=== PATIENT | male | born 1970 | race Caucasian/White ===

== ENCOUNTER 2016-09-26 15:50 | Observation (INO) ==
--- NOTE | 2016-09-26 16:06 | Emergency Department Note ---
Disposition Clinical Impression: CAD (coronary artery disease), Chest pain, Tachycardia, History of hypertension , Obesity, Abnormal EKG, History of COPD, History of CHF (congestive heart failure), Marijuana abuse, Elevated blood pressure reading, Anxiety, Pulmonary nodule, Cirrhosis, Elevated d-dimer Disposition: Admitted As Inpatient Referrals: NO,PCP [Primary Care Provider] - Forms: ED Satisfaction Letter General Adult HPI - General Chief complaint: ED Chest Pain Stated complaint: chest pain Time Seen by Provider: 09/26/16 15:57 Source: patient, EMS Limitations: no limitations - History of Present Illness HPI Narrative: 46-year-old male with a history of CAD status post CABG about 2 years ago reports emergency department complaining of chest pain which is midsternal and radiates to the left not necessarily associated with exertion. He has a history of a sternal defect status post surgery and an abdominal hernia which has been chronic. The patient denies abdominal pain vomiting or diarrhea. There is no history of bloody stool no significant leg swelling, he has a chronic cough secondary to COPD but has not had bloody emesis syncope or frankly purulence sputum or fever. The patient does not think his musculoskeletal issues in the chest wall are responsible for his chest pain. He has no history of DVT PE or cancer. No history of aneurysm noted. The patient began having chest pain this morning. He was given aspirin via EMS. There is no history of confusion or seizure. No weakness or numbness of the arms or legs, no unilateral arm or leg flaccidity. No slurred speech or confusion no headache or acute back pain. No urine symptomatology. There is no history of rash or raina trauma. Pain Scale: 10 - Related Data Allergies Allergy/AdvReac Type Severity Reaction Status Date / Time Hydromorphone [From Dilaudid] Allergy Hallucinati Verified 09/26/16 16:01 ng morphine Allergy Hallucinati Verified 09/26/16 16:01 ng Penicillins Allergy Blister Verified 09/26/16 16:01 All systems ED: reviewed and negative except as stated. Past Medical History - Past Medical History Medical history: Reports: cirrhosis, CHF, COPD, hepatitis Psychiatric history: Reports: no psych history - Social History Smoking Status: Former smoker Alcohol use: Reports: heavy Drug use: Reports: marijuana Physical Exam - General Limitations: no limitations General appearance: alert, in no apparent distress - Head Head exam: atraumatic, normocephalic, normal inspection - Eye Eye exam: Present: normal appearance, PERRL, EOMI. Absent: scleral icterus, conjunctival injection, miosis, mydriasis - ENT ENT exam: normal exam, normal oropharynx, mucous membranes moist - Neck Neck exam: Present: normal inspection, full ROM, trachea midline - Chest Chest inspection: Present: normal inspection, symmetric chest wall rise. Absent : tenderness - Respiratory Respiratory exam: Present: normal lung sounds bilaterally. Absent: respiratory distress, accessory muscle use, prolonged expiratory phase - Cardiovascular Cardiovascular exam: Present: regular rate, normal rhythm, normal heart sounds - Abdominal Exam Abdominal exam: Present: soft, Non-Tender, normal bowel sounds, hernia ( Epigastric hernia reducible nontender.). Absent: tenderness, distention, guarding, rebound, rigidity, trauma, ascites, pulsatile mass - Extremities Exam Extremities exam: Present: normal inspection, full ROM, normal capillary refill. Absent: tenderness, pedal edema, joint swelling, calf tenderness - Expanded Lower Extremity Exam Lower leg exam: Absent: Homans' sign Neurovascular/Tendon exam: Present: normal capillary refill. Absent: motor deficit, sensory deficit, tendon deficit, extremity cold to touch, pallor - Back Exam Back exam: Present: normal inspection, full ROM. Absent: tenderness, CVA tenderness (R), CVA tenderness (L), vertebral tenderness - Neurological Exam Neurological exam: Present: alert, oriented X3, CN II-XII intact. Absent: motor sensory deficit - Psychiatric Psychiatric exam: Present: normal affect, normal mood - Skin Skin exam: Present: warm, dry, intact, normal color. Absent: rash, cyanosis, diaphoresis, erythema, pallor, mottled Course - Reevaluation(s) Reevaluation #1: Rechecked the patient and reviewed his test results with him, he describes significant anxiety, Ativan was ordered. Vital Signs Temperature 98 F 09/26/16 15:53 Pulse Rate 123 09/26/16 15:53 Respiratory Rate 18 09/26/16 15:53 Blood Pressure 139/126 09/26/16 15:53 O2 Sat by Pulse Oximetry 94 09/26/16 15:53 Temperature 98 F 09/26/16 15:53 Pulse Rate 101 09/26/16 18:13 Respiratory Rate 16 09/26/16 18:13 Blood Pressure 144/108 09/26/16 18:13 O2 Sat by Pulse Oximetry 94 09/26/16 18:13 Oxygen Delivery Oxygen Delivery Nasal Cannula Medical Decision Making - MDM Narrative Medical decision making narrative: The patient's blood pressure is been significantly elevated, he has a history of hypertension. The patient does display an element of anxietyThe patient is also complaining of chest pain, he has significant risk factors for ACS including age, male sex, previous CAD, hypertension, and hyperlipidemia. Based on his risk factors for acute vascular disease, I thought it would be appropriate to admit the patient to the hospital. I discussed the case with the hospitalist on-call who has accepted the patient to their care. The patient is currently stable. Aspirin, Vicodin, and Ativan were ordered and the ED. - Lab Data Result diagrams: 09/26/16 16:39 09/26/16 16:39 Lab Results 09/26/16 09/26/16 09/26/16 Range/Units 16:35 16:39 16:39 WBC (4.3-11.1) K/mcL RBC (4.19-5.50) M/mcL Hgb (12.9-16.9) g/dL Hct (37.5-50.1) % MCV (83.0-100.0) fL MCH (28.0-33.3) pg MCHC (31.6-35.5) g/dL RDW (11.5-14.5) % Plt Count (140-400) K/mcL MPV (9.4-12.4) fL Immature Gran % (0-4) % Seg Neutrophils % % Lymphocytes % % Monocytes % % Eosinophils % % Basophils % % Neutrophils # (1.6-8.9) K/mcL Lymphocytes # (0.6-4.6) K/mcL Monocytes # (0.0-1.3) K/mcL Eosinophils # (0.0-0.6) K/mcL Basophils # (0.0-0.2) K/mcL Immature Plt Fraction (1.1-6.1) % PT 14.0 H (9.4-12.1) Seconds INR 1.3 APTT 38.9 H (26.0-36.0) Seconds D-Dimer 777 H (0-500) ng/mLFEU Sodium (136-145) mEq/L Potassium (3.5-4.5) mEq/L Chloride (98-109) mEq/L Carbon Dioxide (19-29) mEq/L BUN (8-26) mg/dL Creatinine (0.72-1.25) mg/dL Est GFR ( Amer) (> 60) Est GFR (Non-Af Amer) (> 60) BUN/Creatinine Ratio (6-26) Glucose (70-99) mg/dL Calculated Osmolality (280-300) Lactic Acid (0.5-2.2) mmol/L Calcium (8.6-10.8) mg/dL Total Bilirubin 1.7 H (0.2-1.2) mg/dL Direct Bilirubin 0.7 H (0.0-0.5) mg/dL Indirect Bilirubin 1.0 (0.0-1.2) mg/dL AST 63 H (5-34) Units/L ALT 41 (0-55) Units/L Alkaline Phosphatase 116 (38-126) Units/L Ammonia (18-72) mcmol/L Troponin I (0-0.03) ng/mL C-Reactive Protein (Less than 5) mg/L B-Natriuretic Peptide (0-100) pg/mL Serum Total Protein 8.4 H (6.0-8.3) g/dL Albumin 3.5 (3.5-5.0) g/dL Globulin 4.9 H (2.4-3.5) g/dL Albumin/Globulin Ratio 0.7 L (1.1-2.2) Lipase 24 (8-78) Units/L Urine Opiates Screen Negative (Olmyag=052) ng/mL Ur Barbiturates Screen Negative (Qpaqgj=395) ng/mL Ur Phencyclidine Scrn Negative (Cutoff=25) ng/mL Ur Amphetamines Screen Negative (Pmoynf=3496) ng/mL U Benzodiazepines Scrn Negative (Fdhpua=378) ng/mL Urine Cocaine Screen Negative (Cutoff= 300) ng/mL U Marijuana (THC) Screen Positive H (Cutoff = 50) ng/mL 09/26/16 09/26/16 09/26/16 Range/Units 16:39 16:39 16:39 WBC 8.7 (4.3-11.1) K/mcL RBC 5.13 (4.19-5.50) M/mcL Hgb 16.9 (12.9-16.9) g/dL Hct 49.8 (37.5-50.1) % MCV 97.1 (83.0-100.0) fL MCH 32.9 (28.0-33.3) pg MCHC 33.9 (31.6-35.5) g/dL RDW 13.2 (11.5-14.5) % Plt Count 146 (140-400) K/mcL MPV 9.6 (9.4-12.4) fL Immature Gran % 0.2 (0-4) % Seg Neutrophils % 71.6 % Lymphocytes % 17.0 % Monocytes % 7.0 % Eosinophils % 3.3 % Basophils % 0.9 % Neutrophils # 6.2 (1.6-8.9) K/mcL Lymphocytes # 1.5 (0.6-4.6) K/mcL Monocytes # 0.6 (0.0-1.3) K/mcL Eosinophils # 0.3 (0.0-0.6) K/mcL Basophils # 0.1 (0.0-0.2) K/mcL Immature Plt Fraction 3.6 (1.1-6.1) % PT (9.4-12.1) Seconds INR APTT (26.0-36.0) Seconds D-Dimer (0-500) ng/mLFEU Sodium 139 (136-145) mEq/L Potassium 3.9 (3.5-4.5) mEq/L Chloride 106 (98-109) mEq/L Carbon Dioxide 22 (19-29) mEq/L BUN 9 (8-26) mg/dL Creatinine 0.89 (0.72-1.25) mg/dL Est GFR ( Amer) > 60 (> 60) Est GFR (Non-Af Amer) > 60 (> 60) BUN/Creatinine Ratio 10 (6-26) Glucose 117 H (70-99) mg/dL Calculated Osmolality 288 (280-300) Lactic Acid (0.5-2.2) mmol/L Calcium 9.2 (8.6-10.8) mg/dL Total Bilirubin (0.2-1.2) mg/dL Direct Bilirubin (0.0-0.5) mg/dL Indirect Bilirubin (0.0-1.2) mg/dL AST (5-34) Units/L ALT (0-55) Units/L Alkaline Phosphatase (38-126) Units/L Ammonia (18-72) mcmol/L Troponin I 0.00 (0-0.03) ng/mL C-Reactive Protein (Less than 5) mg/L B-Natriuretic Peptide (0-100) pg/mL Serum Total Protein (6.0-8.3) g/dL Albumin (3.5-5.0) g/dL Globulin (2.4-3.5) g/dL Albumin/Globulin Ratio (1.1-2.2) Lipase (8-78) Units/L Urine Opiates Screen (Qvepwp=738) ng/mL Ur Barbiturates Screen (Jbvccd=360) ng/mL Ur Phencyclidine Scrn (Cutoff=25) ng/mL Ur Amphetamines Screen (Ppixpr=0139) ng/mL U Benzodiazepines Scrn (Mgazis=274) ng/mL Urine Cocaine Screen (Cutoff= 300) ng/mL U Marijuana (THC) Screen (Cutoff = 50) ng/mL 09/26/16 09/26/16 09/26/16 Range/Units 16:39 16:39 16:39 WBC (4.3-11.1) K/mcL RBC (4.19-5.50) M/mcL Hgb (12.9-16.9) g/dL Hct (37.5-50.1) % MCV (83.0-100.0) fL MCH (28.0-33.3) pg MCHC (31.6-35.5) g/dL RDW (11.5-14.5) % Plt Count (140-400) K/mcL MPV (9.4-12.4) fL Immature Gran % (0-4) % Seg Neutrophils % % Lymphocytes % % Monocytes % % Eosinophils % % Basophils % % Neutrophils # (1.6-8.9) K/mcL Lymphocytes # (0.6-4.6) K/mcL Monocytes # (0.0-1.3) K/mcL Eosinophils # (0.0-0.6) K/mcL Basophils # (0.0-0.2) K/mcL Immature Plt Fraction (1.1-6.1) % PT (9.4-12.1) Seconds INR APTT (26.0-36.0) Seconds D-Dimer (0-500) ng/mLFEU Sodium (136-145) mEq/L Potassium (3.5-4.5) mEq/L Chloride (98-109) mEq/L Carbon Dioxide (19-29) mEq/L BUN (8-26) mg/dL Creatinine (0.72-1.25) mg/dL Est GFR ( Amer) (> 60) Est GFR (Non-Af Amer) (> 60) BUN/Creatinine Ratio (6-26) Glucose (70-99) mg/dL Calculated Osmolality (280-300) Lactic Acid (0.5-2.2) mmol/L Calcium (8.6-10.8) mg/dL Total Bilirubin (0.2-1.2) mg/dL Direct Bilirubin (0.0-0.5) mg/dL Indirect Bilirubin (0.0-1.2) mg/dL AST (5-34) Units/L ALT (0-55) Units/L Alkaline Phosphatase (38-126) Units/L Ammonia 38 (18-72) mcmol/L Troponin I (0-0.03) ng/mL C-Reactive Protein 8 H (Less than 5) mg/L B-Natriuretic Peptide 64 (0-100) pg/mL Serum Total Protein (6.0-8.3) g/dL Albumin (3.5-5.0) g/dL Globulin (2.4-3.5) g/dL Albumin/Globulin Ratio (1.1-2.2) Lipase (8-78) Units/L Urine Opiates Screen (Wotrnx=590) ng/mL Ur Barbiturates Screen (Wlehgx=481) ng/mL Ur Phencyclidine Scrn (Cutoff=25) ng/mL Ur Amphetamines Screen (Bcylwl=9298) ng/mL U Benzodiazepines Scrn (Wivkid=186) ng/mL Urine Cocaine Screen (Cutoff= 300) ng/mL U Marijuana (THC) Screen (Cutoff = 50) ng/mL 09/26/16 Range/Units 16:39 WBC (4.3-11.1) K/mcL RBC (4.19-5.50) M/mcL Hgb (12.9-16.9) g/dL Hct (37.5-50.1) % MCV (83.0-100.0) fL MCH (28.0-33.3) pg MCHC (31.6-35.5) g/dL RDW (11.5-14.5) % Plt Count (140-400) K/mcL MPV (9.4-12.4) fL Immature Gran % (0-4) % Seg Neutrophils % % Lymphocytes % % Monocytes % % Eosinophils % % Basophils % % Neutrophils # (1.6-8.9) K/mcL Lymphocytes # (0.6-4.6) K/mcL Monocytes # (0.0-1.3) K/mcL Eosinophils # (0.0-0.6) K/mcL Basophils # (0.0-0.2) K/mcL Immature Plt Fraction (1.1-6.1) % PT (9.4-12.1) Seconds INR APTT (26.0-36.0) Seconds D-Dimer (0-500) ng/mLFEU Sodium (136-145) mEq/L Potassium (3.5-4.5) mEq/L Chloride (98-109) mEq/L Carbon Dioxide (19-29) mEq/L BUN (8-26) mg/dL Creatinine (0.72-1.25) mg/dL Est GFR ( Amer) (> 60) Est GFR (Non-Af Amer) (> 60) BUN/Creatinine Ratio (6-26) Glucose (70-99) mg/dL Calculated Osmolality (280-300) Lactic Acid 1.6 (0.5-2.2) mmol/L Calcium (8.6-10.8) mg/dL Total Bilirubin (0.2-1.2) mg/dL Direct Bilirubin (0.0-0.5) mg/dL Indirect Bilirubin (0.0-1.2) mg/dL AST (5-34) Units/L ALT (0-55) Units/L Alkaline Phosphatase (38-126) Units/L Ammonia (18-72) mcmol/L Troponin I (0-0.03) ng/mL C-Reactive Protein (Less than 5) mg/L B-Natriuretic Peptide (0-100) pg/mL Serum Total Protein (6.0-8.3) g/dL Albumin (3.5-5.0) g/dL Globulin (2.4-3.5) g/dL Albumin/Globulin Ratio (1.1-2.2) Lipase (8-78) Units/L Urine Opiates Screen (Jpinrk=147) ng/mL Ur Barbiturates Screen (Nugvft=820) ng/mL Ur Phencyclidine Scrn (Cutoff=25) ng/mL Ur Amphetamines Screen (Qhjqkx=5593) ng/mL U Benzodiazepines Scrn (Qceztc=618) ng/mL Urine Cocaine Screen (Cutoff= 300) ng/mL U Marijuana (THC) Screen (Cutoff = 50) ng/mL
[2016-09-26] MEDS ORDERED: *HR* HYDROmorphone (PF) 1 MG/ML SYRINGE IVP ONE (16:29)
[2016-09-26] MEDS ORDERED: Ondansetron 4 MG/2 ML VIAL IVP ONE (16:29)
[2016-09-26] MEDS ORDERED: Aspirin 325 MG TABLET PO ONE (16:30)
[2016-09-26] MEDS ORDERED: *HR* HYDROcodone/Acet 5/325 mg TABLET PO ONE ×2 (16:38→18:19)
[2016-09-26 16:49] LABS: Basophils # 0.1 K/mcL (0.0-0.2); Basophils % 0.9 %; Eosinophils # 0.3 K/mcL (0.0-0.6); Eosinophils % 3.3 %; Hematocrit 49.8 % (37.5-50.1); Hemoglobin 16.9 g/dL (12.9-16.9); Immature Granulocytes % 0.2 % (0-4); Immature Platelets 3.6 % (1.1-6.1); Lymphocytes # 1.5 K/mcL (0.6-4.6); Mean Corpuscular HGB Conc 33.9 g/dL (31.6-35.5); Mean Corpuscular Hemoglobin 32.9 pg (28.0-33.3); Mean Corpuscular Volume 97.1 fL (83.0-100.0); Mean Platelet Volume 9.6 fL (9.4-12.4); Monocytes # 0.6 K/mcL (0.0-1.3); Neutrophils # 6.2 K/mcL (1.6-8.9); Platelet Count 146 K/mcL (140-400); Red Blood Count 5.13 M/mcL (4.19-5.50); Red Cell Distribution Width 13.2 % (11.5-14.5); Segmented Neutrophils % 71.6 %
[2016-09-26 16:51] LABS: Amphetamine Screen,Urine Negative ng/mL (Cutoff=1000); Barbiturate Screen,Urine Negative ng/mL (Cutoff=200); Benzodiazepines Screen,Urine Negative ng/mL (Cutoff=200); Cannabinoid Screen,Urine Positive ng/mL (Cutoff = 50); Cocaine Screen,Urine Negative ng/mL (Cutoff= 300); Opiate Screen,Urine Negative ng/mL (Cutoff=300); Phencyclidine Screen,Urine Negative ng/mL (Cutoff=25)
[2016-09-26 17:02] LABS: BUN/Creatinine Ratio 10 (6-26); Blood Urea Nitrogen 9 mg/dL (8-26); Calcium 9.2 mg/dL (8.6-10.8); Carbon Dioxide 22 mEq/L (19-29); Chloride 106 mEq/L (98-109); Glucose 117 mg/dL (70-99); Osmolality,Calculated 288 (280-300); Potassium 3.9 mEq/L (3.5-4.5); Sodium 139 mEq/L (136-145); eGFR For African Americans > 60 (> 60); eGFR For Non-African Americans > 60 (> 60)
[2016-09-26 17:05] LABS: Albumin 3.5 g/dL (3.5-5.0); Albumin/Globulin Ratio 0.7 (1.1-2.2); Bilirubin,Direct 0.7 mg/dL (0.0-0.5); Bilirubin,Total 1.7 mg/dL (0.2-1.2); Globulin 4.9 g/dL (2.4-3.5); Total Protein 8.4 g/dL (6.0-8.3)
[2016-09-26 17:08] LABS: INR 1.3
[2016-09-26 17:11] LABS: Activated Partial Thrombo Time 38.9 Seconds (26.0-36.0)
[2016-09-26] MEDS ORDERED: *HR* LORazepam 2 MG/ML VIAL IVP ONE (18:02)
[2016-09-26 19:11] LABS: Bilirubin,Urine Negative (Negative); Blood,Urine Negative (Negative); Clarity,Urine Clear (Clear); Color,Urine Dark Yellow (Yellow); Glucose,Urine (UA) Normal (Normal); Ketones,Urine Negative (Negative); Leukocyte Esterase,Urine Negative (Negative); Nitrite,Urine Negative (Negative); PH,Urine 6.5 pH Units (5.0-8.0); Protein,Urine Negative (Neg-Trace); Specific Gravity,Urine 1.018 (1.010-1.025); Urobilinogen,Urine Normal (Normal)
[2016-09-26] MEDS ORDERED: Naloxone 0.4 MG/ML INJ IVP PRN (19:56)
[2016-09-26] MEDS ORDERED: *HR* HYDROmorphone (PF) 1 MG/ML SYRINGE IVP PRN (19:56)
[2016-09-26] MEDS ORDERED: *HR* HYDROcodone/Acet 5/325 mg TABLET PO PRN (19:56)
[2016-09-26] MEDS ORDERED: *HR* Metoprolol 5 MG/5 ML VIAL IVP ONE (19:58)
[2016-09-26] MEDS ORDERED: 0.9 % Sodium Chloride 1,000 ML IVC ONE (19:59)
[2016-09-26] MEDS ORDERED: 0.9 % Sodium Chloride 500 ML IVC ONE (20:00)
[2016-09-26] MEDS ORDERED: Nitroglycerin 0.4 MG TAB.SUBL SL PRN (20:01)
[2016-09-26] MEDS ORDERED: *HR* Promethazine 25 MG/ML VIAL IVP PRN (20:05)
[2016-09-26] MEDS ORDERED: *HR* LORazepam 2 MG/ML VIAL IVP PRN (20:05)
--- NOTE | 2016-09-26 20:22 | Internal Med History&Physical ---
Date of Encounter: 09/26/16 Time of Encounter: 20:13 Assessment and Plan (1) Chest pain Current visit: Yes Status: Acute Patient reports constant chest pain radiating to left side since this morning, unrelieved by nitro, aspirin. Initial troponin was negative at 0.00 EKG showed sinus tachycardia with no significant changes from previous. continuous monitor and storage bin tender serial troponins stress test and echocardiogram in the morning. Qualifiers: Chest pain type: precordial pain Qualified Code(s): R07.2 - Precordial pain (2) Tachycardia Current visit: Yes Status: Acute Patient's heart rate has been running in the 110s-120s since arrival. EKG shows sinus tachycardia. Patient reports pain, and drank alcohol last night. Patient also reports a high level of stress and anxiety. Tachycardia could be related to his stress, pain, and/or dehydration. Metoprolol 5m IVP once 500mL bolus Pain control with PRN [place] and dilaudid. Ativan for anxiety. (3) Hypertension Current visit: Yes Status: Acute Patient's blood pressure running high since arrival. 140s-150s/100s. Patient reports he took his blood pressure medication today, and his BP may be high due to his pain. 5mg Metoprolol IVP once. Continue home doses of metoprolol (hold in AM for stress), lisinopril. Qualifiers: Hypertension type: essential hypertension Qualified Code(s): I10 - Essential (primary) hypertension (4) Alcohol abuse Current visit: Yes Status: Acute Patient reports heavy alcohol use, despite diagnosis of cirrhosis. He reports Isai Beam whiskey is drink of choice and it is nothing for him to drink a whole bottle at a time. He reports last drink was last evening. [facility] protocol for alcohol withdrawal. Social work consulted. (5) Chronic pain Current visit: Yes Status: Acute Patient reports chronic pain in left leg related to knee replacement, history of femur "shattering" resulting in hip replacement. 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 Continue home dose of hydrocodone-acetaminophen 7.5-325 Q4hr PRN. dilaudid 0.5mg IVP Q4hr prn for breakthrough pain Narcan PRN for respiratory depression. Qualifiers: Chronic pain type: other chronic pain Qualified Code(s): G89.29 - Other chronic pain (6) CAD (coronary artery disease) Current visit: Yes Status: Acute Patient is s/p 4-vessel coronary artery bypass in 2014. Continue aspirin, atorvastatin, metoprolol, lisinopril Qualifiers: Coronary Disease-Associated Artery/Lesion type: [place] artery [place] vs. transplanted heart: [place] heart Associated angina: angina presence unspecified Qualified Code(s): I25.10 - Atherosclerotic heart disease of [place] coronary artery without angina pectoris (7) Suicidal ideation Current visit: Yes Status: Acute Patient reports high level of stress and anxiety and reported suicidal ideation to his nurse. suicide precautions Social work consulted psych consult ordered (will need to be called in the morning) (8) DVT prophylaxis Current visit: Yes Status: Acute calf sequential compression devices. Internal Medicine - H&P: HPI Chief complaint: chest pain Admitted From: Emergency Dept Plans for Post Hospital Care: Home History of present illness: Mr. Castro is a 46 year old male with HTN, HLD, CHF, CAD s/p 4 vessel CABG 2014, cirrhosis and chronic pain presented to the emergency department today with complaints of chest pain. Patient reports he woke up this morning with chest pain at 5 AM was radiating to his left shoulder. He describes the pain as sharp and severe. He reports he took a nitroglycerin and went back to sleep, and woke up again at 9 AM and the pain was still there reports the pain has been persistent throughout the day. Pain was not relieved by nitroglycerin, aspirin, he reports he still has pain despite the pain medication being given in the emergency department. He reports occasional lightheadedness and shortness of breath, but not any increased from his baseline. He reports a little bit of nausea, but denies any vomiting, abdominal pain, or diarrhea. He reports night sweats on a regular basis, but denies any fever or chills or body aches. Evaluation in the emergency department included an EKG which showed sinus tachycardia but no ST changes from previous EKG. Troponin was negative at 0.00. D-dimer was elevated to 777, so his CTA was obtained. CTA showed no evidence of a pulmonary embolism, atherosclerotic disease of the thoracic aorta , without evidence of aneurysm or dissection, minimal dependent atelectasis within the bilateral lower lobes, cirrhosis and portal hypertension, new 3 mm right lower lobe pulmonary nodule most likely benign. On exam, patient alert and oriented, in no acute distress. Heart had regular rhythm with tachycardia. Lungs had fine crackles in the bases. Past Med Surg Social Fam HX - Past Medical History Medical history: cirrhosis, CHF, COPD, coronary artery disease, GERD, hepatitis , hyperlipidemia, hypertension, liver disease, myocardial infarction Psychiatric history: no psych history - Past Surgical History Surgical History: coronary bypass (CABG), hip replacement, knee replacement - Social History Smoking Status: Former smoker Alcohol use: heavy Drug use: marijuana - Family History Mother Living Status: Age at : 48 Cause of : cancer Hx Family Cancer: Yes Father Living Status: Age at : 62 Cause of : cancer Hx Family Cancer: Yes Brother Living Status: Age at : 37 Cause of : cancer Hx Family Cancer: Yes Internal Medicine - H&P: Meds Aspirin Enteric Coated [Aspirin EC] 81 mg PO DAILY 09/26/16 [History] Atorvastatin [Lipitor] 40 mg PO HS 09/26/16 [History] Buspirone HCl [Buspar] 15 mg PO BID 09/26/16 [History] Duloxetine HCl [Cymbalta] 60 mg PO DAILY 09/26/16 [History] Fluticasone/Salmeterol [Advair 250-50 Diskus] 1 puff IH BID 09/26/16 [History] Gabapentin [Neurontin] 600 mg PO BID 09/26/16 [History] HYDROcodone/Acet 7.5/325 mg [[place] 7.5-325 mg] 1 tab PO Q4H PRN 09/26/16 [ History] Lisinopril [Zestril] 10 mg PO DAILY 09/26/16 [History] Metoprolol XL (24 HR) Succ [Toprol XL] 50 mg PO DAILY 09/26/16 [History] Nitroglycerin [Nitrostat] 0.4 mg SL AD PRN 09/26/16 [History] Tiotropium [place] [Spiriva Respimat] 2 puff IH DAILY 09/26/16 [History] Allergies Hydromorphone [From Dilaudid] Allergy (Verified 09/26/16 16:01) Hallucinating morphine Allergy (Verified 09/26/16 16:01) Hallucinating Penicillins Allergy (Verified 09/26/16 16:01) Blister All Systems PM: A 10-system review of systems was performed and is negative for pertinent findings except as documented above in the HPI. - Constitutional Constitutional: night sweats, no chills, no fever(s) - EENT Eyes: no change in vision, no discharge, no pain, no photophobia Ears: no ear discharge, no ear pain, no tinnitus Nose, mouth and throat: no dysphagia, no nasal discharge, no neck pain, no sore throat - Cardiovascular Cardiovascular ROS IM: chest pain, dyspnea, lightheadedness, no diaphoresis, no palpitations, no syncope - Respiratory Respiratory: cough, dyspnea, no wheezing, no excessive phlegm production - Gastrointestinal Gastrointestinal: no abdominal pain, no diarrhea, no hematemesis, no hematochezia, no melena, no nausea, no vomiting - Musculoskeletal Musculoskeletal ROS IM: numbness (left foot, chronic), no tingling - Integumentary Integumentary IM: no rash, no unusual bruising - Neurological Neurological ROS: numbness (left foot, chronic), no confusion, no convulsions, no focal weakness, no tingling, no tremor(s) - Hematologic/Lymphatic Hematologic/Lymphatic: no easy bruising - Constitutional Vitals: Temp Pulse Resp BP Pulse Ox 98 F 120 18 140/110 93 09/26/16 15:53 09/26/16 18:55 09/26/16 19:25 09/26/16 19:25 09/26/16 18:55 General appearance: Present: A&O X 3, pleasant, no acute distress, obese - Head Head exam: Present: atraumatic, normocephalic - Eye Eye exam: Present: PERRL, conjuntiva pink, sclera anicteric Pupils: Present: PERRL - Neck Neck exam general surgery: Present: supple, trachea midline. Absent: lymphadenopathy - Respiratory Respiratory exam: Present: rales (crackles in bilateral bases). Absent: accessory muscle use, rhonchi, wheezes - Cardiovascular Cardiovascular exam: Present: +S1, +S2, tachycardia. Absent: diastolic murmur, gallop, rubs, systolic murmur - GI/Abdominal GI/Abdominal exam: Present: normal bowel sounds, soft, no peritoneal signs. Absent: distended, tenderness - Extremities Exam Extremities exam: Present: warm, radial pulses palpable and symetrical. Absent : calf tenderness, cyanotic, pedal edema - Neurological Exam Neurological exam: Present: CN II-XII intact, oriented X3, no focal deficits. Absent: facial droop, speech deficit - Skin Skin exam: Present: dry, intact Internal Med - H&P Results - Labs CBC & Chem 7: 09/26/16 16:39 09/26/16 16:39 Labs: All Lab Results (24 Hours) 09/26/16 09/26/16 09/26/16 Range/Units 16:35 16:35 16:39 WBC (4.3-11.1) K/mcL RBC (4.19-5.50) M/mcL Hgb (12.9-16.9) g/dL Hct (37.5-50.1) % MCV (83.0-100.0) fL MCH (28.0-33.3) pg MCHC (31.6-35.5) g/dL RDW (11.5-14.5) % Plt Count (140-400) K/mcL MPV (9.4-12.4) fL Immature Gran % (0-4) % Seg Neutrophils % % Lymphocytes % % Monocytes % % Eosinophils % % Basophils % % Neutrophils # (1.6-8.9) K/mcL Lymphocytes # (0.6-4.6) K/mcL Monocytes # (0.0-1.3) K/mcL Eosinophils # (0.0-0.6) K/mcL Basophils # (0.0-0.2) K/mcL Immature Plt Fraction (1.1-6.1) % PT 14.0 H (9.4-12.1) Seconds INR 1.3 APTT 38.9 H (26.0-36.0) Seconds D-Dimer 777 H (0-500) ng/mLFEU Sodium (136-145) mEq/L Potassium (3.5-4.5) mEq/L Chloride (98-109) mEq/L Carbon Dioxide (19-29) mEq/L BUN (8-26) mg/dL Creatinine (0.72-1.25) mg/dL Est GFR ( Amer) (> 60) Est GFR (Non-Af Amer) (> 60) BUN/Creatinine Ratio (6-26) Glucose (70-99) mg/dL Calculated Osmolality (280-300) Lactic Acid (0.5-2.2) mmol/L Calcium (8.6-10.8) mg/dL Total Bilirubin (0.2-1.2) mg/dL Direct Bilirubin (0.0-0.5) mg/dL Indirect Bilirubin (0.0-1.2) mg/dL AST (5-34) Units/L ALT (0-55) Units/L Alkaline Phosphatase (38-126) Units/L Ammonia (18-72) mcmol/L Troponin I (0-0.03) ng/mL C-Reactive Protein (Less than 5) mg/L B-Natriuretic Peptide (0-100) pg/mL Serum Total Protein (6.0-8.3) g/dL Albumin (3.5-5.0) g/dL Globulin (2.4-3.5) g/dL Albumin/Globulin Ratio (1.1-2.2) Lipase (8-78) Units/L Urine Color Dark Yellow (Yellow) Urine Clarity Clear (Clear) Urine pH 6.5 (5.0-8.0) pH Units Ur Specific [place] 1.018 (1.010-1.025) Urine Protein Negative (Neg-Trace) mg/dL Urine Glucose (UA) Normal (Normal) mg/dL Urine Ketones Negative (Negative) mg/dL Urine Blood Negative (Negative) Urine Nitrite Negative (Negative) Urine Bilirubin Negative (Negative) Urine Urobilinogen Normal (Normal) mg/dL Ur Leukocyte Esterase Negative (Negative) Ur Culture Indicated? NO (NO) Urine Opiates Screen Negative (Jmvuks=180) ng/mL Ur Barbiturates Screen Negative (Ensptb=000) ng/mL Ur Phencyclidine Scrn Negative (Cutoff=25) ng/mL Ur Amphetamines Screen Negative (Zypyzy=9578) ng/mL U Benzodiazepines Scrn Negative (Fpqjjd=665) ng/mL Urine Cocaine Screen Negative (Cutoff= 300) ng/mL U Marijuana (THC) Screen Positive H (Cutoff = 50) ng/mL 09/26/16 09/26/16 09/26/16 Range/Units 16:39 16:39 16:39 WBC 8.7 (4.3-11.1) K/mcL RBC 5.13 (4.19-5.50) M/mcL Hgb 16.9 (12.9-16.9) g/dL Hct 49.8 (37.5-50.1) % MCV 97.1 (83.0-100.0) fL MCH 32.9 (28.0-33.3) pg MCHC 33.9 (31.6-35.5) g/dL RDW 13.2 (11.5-14.5) % Plt Count 146 (140-400) K/mcL MPV 9.6 (9.4-12.4) fL Immature Gran % 0.2 (0-4) % Seg Neutrophils % 71.6 % Lymphocytes % 17.0 % Monocytes % 7.0 % Eosinophils % 3.3 % Basophils % 0.9 % Neutrophils # 6.2 (1.6-8.9) K/mcL Lymphocytes # 1.5 (0.6-4.6) K/mcL Monocytes # 0.6 (0.0-1.3) K/mcL Eosinophils # 0.3 (0.0-0.6) K/mcL Basophils # 0.1 (0.0-0.2) K/mcL Immature Plt Fraction 3.6 (1.1-6.1) % PT (9.4-12.1) Seconds INR APTT (26.0-36.0) Seconds D-Dimer (0-500) ng/mLFEU Sodium 139 (136-145) mEq/L Potassium 3.9 (3.5-4.5) mEq/L Chloride 106 (98-109) mEq/L Carbon Dioxide 22 (19-29) mEq/L BUN 9 (8-26) mg/dL Creatinine 0.89 (0.72-1.25) mg/dL Est GFR ( Amer) > 60 (> 60) Est GFR (Non-Af Amer) > 60 (> 60) BUN/Creatinine Ratio 10 (6-26) Glucose 117 H (70-99) mg/dL Calculated Osmolality 288 (280-300) Lactic Acid (0.5-2.2) mmol/L Calcium 9.2 (8.6-10.8) mg/dL Total Bilirubin 1.7 H (0.2-1.2) mg/dL Direct Bilirubin 0.7 H (0.0-0.5) mg/dL Indirect Bilirubin 1.0 (0.0-1.2) mg/dL AST 63 H (5-34) Units/L ALT 41 (0-55) Units/L Alkaline Phosphatase 116 (38-126) Units/L Ammonia (18-72) mcmol/L Troponin I (0-0.03) ng/mL C-Reactive Protein (Less than 5) mg/L B-Natriuretic Peptide (0-100) pg/mL Serum Total Protein 8.4 H (6.0-8.3) g/dL Albumin 3.5 (3.5-5.0) g/dL Globulin 4.9 H (2.4-3.5) g/dL Albumin/Globulin Ratio 0.7 L (1.1-2.2) Lipase 24 (8-78) Units/L Urine Color (Yellow) Urine Clarity (Clear) Urine pH (5.0-8.0) pH Units Ur Specific [place] (1.010-1.025) Urine Protein (Neg-Trace) mg/dL Urine Glucose (UA) (Normal) mg/dL Urine Ketones (Negative) mg/dL Urine Blood (Negative) Urine Nitrite (Negative) Urine Bilirubin (Negative) Urine Urobilinogen (Normal) mg/dL Ur Leukocyte Esterase (Negative) Ur Culture Indicated? (NO) Urine Opiates Screen (Evqbyu=657) ng/mL Ur Barbiturates Screen (Htcowo=212) ng/mL Ur Phencyclidine Scrn (Cutoff=25) ng/mL Ur Amphetamines Screen (Sulwcq=7448) ng/mL U Benzodiazepines Scrn (Ystjls=554) ng/mL Urine Cocaine Screen (Cutoff= 300) ng/mL U Marijuana (THC) Screen (Cutoff = 50) ng/mL 09/26/16 09/26/16 09/26/16 Range/Units 16:39 16:39 16:39 WBC (4.3-11.1) K/mcL RBC (4.19-5.50) M/mcL Hgb (12.9-16.9) g/dL Hct (37.5-50.1) % MCV (83.0-100.0) fL MCH (28.0-33.3) pg MCHC (31.6-35.5) g/dL RDW (11.5-14.5) % Plt Count (140-400) K/mcL MPV (9.4-12.4) fL Immature Gran % (0-4) % Seg Neutrophils % % Lymphocytes % % Monocytes % % Eosinophils % % Basophils % % Neutrophils # (1.6-8.9) K/mcL Lymphocytes # (0.6-4.6) K/mcL Monocytes # (0.0-1.3) K/mcL Eosinophils # (0.0-0.6) K/mcL Basophils # (0.0-0.2) K/mcL Immature Plt Fraction (1.1-6.1) % PT (9.4-12.1) Seconds INR APTT (26.0-36.0) Seconds D-Dimer (0-500) ng/mLFEU Sodium (136-145) mEq/L Potassium (3.5-4.5) mEq/L Chloride (98-109) mEq/L Carbon Dioxide (19-29) mEq/L BUN (8-26) mg/dL Creatinine (0.72-1.25) mg/dL Est GFR ( Amer) (> 60) Est GFR (Non-Af Amer) (> 60) BUN/Creatinine Ratio (6-26) Glucose (70-99) mg/dL Calculated Osmolality (280-300) Lactic Acid (0.5-2.2) mmol/L Calcium (8.6-10.8) mg/dL Total Bilirubin (0.2-1.2) mg/dL Direct Bilirubin (0.0-0.5) mg/dL Indirect Bilirubin (0.0-1.2) mg/dL AST (5-34) Units/L ALT (0-55) Units/L Alkaline Phosphatase (38-126) Units/L Ammonia 38 (18-72) mcmol/L Troponin I 0.00 (0-0.03) ng/mL C-Reactive Protein 8 H (Less than 5) mg/L B-Natriuretic Peptide (0-100) pg/mL Serum Total Protein (6.0-8.3) g/dL Albumin (3.5-5.0) g/dL Globulin (2.4-3.5) g/dL Albumin/Globulin Ratio (1.1-2.2) Lipase (8-78) Units/L Urine Color (Yellow) Urine Clarity (Clear) Urine pH (5.0-8.0) pH Units Ur Specific [place] (1.010-1.025) Urine Protein (Neg-Trace) mg/dL Urine Glucose (UA) (Normal) mg/dL Urine Ketones (Negative) mg/dL Urine Blood (Negative) Urine Nitrite (Negative) Urine Bilirubin (Negative) Urine Urobilinogen (Normal) mg/dL Ur Leukocyte Esterase (Negative) Ur Culture Indicated? (NO) Urine Opiates Screen (Ehlvxc=615) ng/mL Ur Barbiturates Screen (Yfskwd=258) ng/mL Ur Phencyclidine Scrn (Cutoff=25) ng/mL Ur Amphetamines Screen (Hxfxfn=3754) ng/mL U Benzodiazepines Scrn (Lurxtd=708) ng/mL Urine Cocaine Screen (Cutoff= 300) ng/mL U Marijuana (THC) Screen (Cutoff = 50) ng/mL 09/26/16 09/26/16 Range/Units 16:39 16:39 WBC (4.3-11.1) K/mcL RBC (4.19-5.50) M/mcL Hgb (12.9-16.9) g/dL Hct (37.5-50.1) % MCV (83.0-100.0) fL MCH (28.0-33.3) pg MCHC (31.6-35.5) g/dL RDW (11.5-14.5) % Plt Count (140-400) K/mcL MPV (9.4-12.4) fL Immature Gran % (0-4) % Seg Neutrophils % % Lymphocytes % % Monocytes % % Eosinophils % % Basophils % % Neutrophils # (1.6-8.9) K/mcL Lymphocytes # (0.6-4.6) K/mcL Monocytes # (0.0-1.3) K/mcL Eosinophils # (0.0-0.6) K/mcL Basophils # (0.0-0.2) K/mcL Immature Plt Fraction (1.1-6.1) % PT (9.4-12.1) Seconds INR APTT (26.0-36.0) Seconds D-Dimer (0-500) ng/mLFEU Sodium (136-145) mEq/L Potassium (3.5-4.5) mEq/L Chloride (98-109) mEq/L Carbon Dioxide (19-29) mEq/L BUN (8-26) mg/dL Creatinine (0.72-1.25) mg/dL Est GFR ( Amer) (> 60) Est GFR (Non-Af Amer) (> 60) BUN/Creatinine Ratio (6-26) Glucose (70-99) mg/dL Calculated Osmolality (280-300) Lactic Acid 1.6 (0.5-2.2) mmol/L Calcium (8.6-10.8) mg/dL Total Bilirubin (0.2-1.2) mg/dL Direct Bilirubin (0.0-0.5) mg/dL Indirect Bilirubin (0.0-1.2) mg/dL AST (5-34) Units/L ALT (0-55) Units/L Alkaline Phosphatase (38-126) Units/L Ammonia (18-72) mcmol/L Troponin I (0-0.03) ng/mL C-Reactive Protein (Less than 5) mg/L B-Natriuretic Peptide 64 (0-100) pg/mL Serum Total Protein (6.0-8.3) g/dL Albumin (3.5-5.0) g/dL Globulin (2.4-3.5) g/dL Albumin/Globulin Ratio (1.1-2.2) Lipase (8-78) Units/L Urine Color (Yellow) Urine Clarity (Clear) Urine pH (5.0-8.0) pH Units Ur Specific [place] (1.010-1.025) Urine Protein (Neg-Trace) mg/dL Urine Glucose (UA) (Normal) mg/dL Urine Ketones (Negative) mg/dL Urine Blood (Negative) Urine Nitrite (Negative) Urine Bilirubin (Negative) Urine Urobilinogen (Normal) mg/dL Ur Leukocyte Esterase (Negative) Ur Culture Indicated? (NO) Urine Opiates Screen (Nblvbq=677) ng/mL Ur Barbiturates Screen (Uichbt=673) ng/mL Ur Phencyclidine Scrn (Cutoff=25) ng/mL Ur Amphetamines Screen (Xuzpwk=9244) ng/mL U Benzodiazepines Scrn (Sjwssl=580) ng/mL Urine Cocaine Screen (Cutoff= 300) ng/mL U Marijuana (THC) Screen (Cutoff = 50) ng/mL - Diagnostic Studies Chest x-ray Additional comments: Chest X-Ray 09/26/16 16:07 IMPRESSION: No acute findings D/ / Logan Hernandez MD / Logan Hernandez MD Interpreting Provider: Logan Hernandez MD CT scan - chest Additional comments: Chest CTA 09/26/16 17:37 IMPRESSION: 1. No CT evidence of a pulmonary embolism. 2. Atherosclerotic disease of the thoracic aorta, without evidence of aneurysm or dissection. 3. Minimal dependent atelectasis within the bilateral lower lobes without acute airspace consolidation. 4. New 3 mm right lower lobe pulmonary nodule, most likely a benign granuloma. However, further follow-up of this nodule is as suggested below. 5. Cirrhosis and portal hypertension. RECOMMENDATIONS: Fleischner Society guidelines for follow-up and management of incidentally detected pulmonary nodules: Single Solid Nodule: Nodule size less than 6 mm In a low-risk patient, no routine follow-up. In a high-risk patient, optional CT at 12 months. - Low risk patients include individuals with minimal or absent history of smoking and other known risk factors. - High risk patients include individuals with a history or smoking or known risk factors. Radiology 2017 http://pubs.rsna.org/doi/full/10.1148/radiol.[email or web address] D/ / 09/26/2016 18:14:12 Fercho Nicholson MD / mayra Interpreting Provider: Fercho Nicholson MD
[2016-09-26] MEDS: *HR* LORazepam 2 MG/ML VIAL IVP PRN ×3 (20:30→23:33)
[2016-09-26] MEDS: Gabapentin 300 MG CAPSULE PO SCH (20:34)
[2016-09-26] MEDS: *HR* HYDROcodone/Acet 7.5/325 mg TABLET PO PRN (20:34)
[2016-09-27] MEDS: *HR* HYDROcodone/Acet 7.5/325 mg TABLET PO PRN ×6 (01:39→22:27)
[2016-09-27] MEDS: *HR* LORazepam 2 MG/ML VIAL IVP PRN ×3 (01:40→11:01)
[2016-09-27 05:24] LABS: Basophils # 0.1 K/mcL (0.0-0.2); Basophils % 1.3 %; Eosinophils # 0.4 K/mcL (0.0-0.6); Eosinophils % 5.4 %; Hematocrit 46.2 % (37.5-50.1); Hemoglobin 15.5 g/dL (12.9-16.9); Immature Granulocytes % 0.5 % (0-4); Lymphocytes # 1.9 K/mcL (0.6-4.6); Lymphocytes % 23.6 %; Mean Corpuscular HGB Conc 33.5 g/dL (31.6-35.5); Mean Corpuscular Hemoglobin 32.7 pg (28.0-33.3); Mean Corpuscular Volume 97.5 fL (83.0-100.0); Mean Platelet Volume 9.5 fL (9.4-12.4); Monocytes # 0.5 K/mcL (0.0-1.3); Monocytes % 6.9 %; Neutrophils # 4.9 K/mcL (1.6-8.9); Platelet Count 121 K/mcL (140-400); Red Blood Count 4.74 M/mcL (4.19-5.50); Red Cell Distribution Width 13.1 % (11.5-14.5); Segmented Neutrophils % 62.3 %
[2016-09-27 05:44] LABS: BUN/Creatinine Ratio 10 (6-26); Blood Urea Nitrogen 10 mg/dL (8-26); Calcium 9.4 mg/dL (8.6-10.8); Carbon Dioxide 27 mEq/L (19-29); Chloride 103 mEq/L (98-109); Glucose 113 mg/dL (70-99); Osmolality,Calculated 286 (280-300); Potassium 3.8 mEq/L (3.5-4.5); Sodium 138 mEq/L (136-145); eGFR For African Americans > 60 (> 60); eGFR For Non-African Americans > 60 (> 60)
[2016-09-27] MEDS ORDERED: Regadenoson 0.4 MG/5 ML SYRINGE IVP ONE (06:29)
[2016-09-27] MEDS ORDERED: Metoprolol XL (24 HR) Succ 50 MG TAB.ER.24H PO SCH (09:00)
--- NOTE | 2016-09-27 09:40 | ECHO - Doppler Report ---
Echocardiogram Name: Isis Castro Date of Study: 09/27/2016 Date: 1970 Ht: 70.0 in Medical Record#: [id number] Age: 46 Wt: 216.0 lb Gender: Male BSA: 2.16 Order #: [id number] Location: [facility] Room #: 3B52 Reading Physician: Mansoor Conryo DO, SUSSY HUSAIN Seasonal Tax Preparer: Yen Castillo RDCS Ordering Physician: Veronika Kan CNP Primary Physician: None Indications: Chest pain Impressions: LVEF 55%. Normal LV chamber size. Not all LV segments were well visualized, but overall LV function appears normal. Mild concentric left ventricular hypertrophy. Mild left ventricular diastolic dysfunction. Normal right ventricular structure and function. No evidence of pulmonary hypertension. No significant valvular dysfunction. Left Ventricular Wall Motion: Rest Echo Findings All wall segments showed normal motion. Findings: Study Quality * Technically adequate exam. ECG Findings * Normal sinus rhythm. Left Ventricle * LVEF 55%. * Normal LV chamber size. Not all LV segments were well visualized, but overall LV function appears normal. * Mild concentric left ventricular hypertrophy. * Mild left ventricular diastolic dysfunction. Right Ventricle * Normal right ventricular structure and function. Left Atrium * Mildly dilated left atrium. Right Atrium * Normal right atrial size. Interatrial Septum * Interatrial septum not well evaluated. Aortic Valve * Trileaflet aortic valve with normal function. * No aortic regurgitation. * No aortic stenosis. Mitral Valve * Normal mitral valve structure and function. * No mitral regurgitation. * No mitral stenosis. Tricuspid Valve * Normal tricuspid valve structure and function. * Trace tricuspid regurgitation. * No evidence of pulmonary hypertension. Pulmonic Valve * Normal pulmonic valve structure and function. * No pulmonic regurgitation. Aorta * Normally sized aortic root. Pericardium * The pericardium appears normal. IVC * Normal IVC dimensions and inspiratory collapse. Pulmonary Artery * Normal visualized portions of the main pulmonary artery. History Hypertension Hypercholesteremia History of CAD/PTCA Myocardial Infarction Congestive Heart Failure 08/14/2014 a Previous Echo was performed. Measurements: BP: 179/ 130 2D Normal Values RVIDd: 2.40 cm <2.7 cm IVSd: 1.40 cm 0.6 - 1.0 cm LVIDd: 4.90 cm 3.7 - 5.6 cm LVPWd: 1.30 cm 0.6 - 1.1 cm LVIDs: 3.20 cm 1.5 - 3.6 cm AO: 2.90 cm < 4.0 cm LA: 3.40 cm 2.0 - 4.0cm %FS: 34.70 cm >25 % LA volume: 35 Mitral Valve Peak E:.50 m/sec Peak A:.87 m/sec E/A Ratio:0.6 Peak E' Lat Broderick:14.8 cm/s Peak E' Med [place]:11.1 cm/s E/E' Lat Ratio:3.4 E/E' Med Ratio:4.5 Tricuspid Valve TV Regurg Peak Grad: 12.00mmHg TV Regurg Peak Broderick: 1.75m/sec Updated by Mansoor Conroy DO, RODRIGUE, SUSSY, BOBBI on 09/27/2016 9:29:15 AM electronically signed on 09/27/2016 9:33:43 AM with status of Final Wall Motion [place]: 1=Normal, 2=Hypokinesis, 3=Akinesis, 4=Dyskinesis, 5=Aneurysmal, 6=Hyperkinetic, X=Not Visualized (Blank)=Missing
[2016-09-27] MEDS: Gabapentin 300 MG CAPSULE PO SCH ×2 (10:15→20:46)
[2016-09-27] MEDS: Aspirin Enteric Coated 81 MG Tablet PO SCH (10:15)
[2016-09-27] MEDS: Metoprolol XL (24 HR) Succ 50 MG TAB.ER.24H PO SCH (11:01)
[2016-09-27] MEDS: *HR* LORazepam 1 MG TABLET PO PRN ×3 (14:17→22:27)
--- NOTE | 2016-09-27 14:24 | Electrocardiograph Report ---
[address] [place] [address] Test Date: 2016-09-26 Pat Name: Isis Castro Department: 104 Room: 3B Gender: M Ritual Circumciser: EDMUND : 1970 Requested By: Cisco José Order Number: [id number] Reading MD: Alphonso Magdaleno MD Measurements Intervals [place] Rate: 127 P: 18 FL: 134 QRS: 60 QRSD: 103 T: 31 QT: 312 QTc: 387 Interpretive Statements SINUS TACHYCARDIA POSSIBLE INFERIOR MYOCARDIAL INFARCTION, PROBABLY OLD Electronically Signed On 09-27-2016 14:22:59 EDT by Alphonso Magdaleno MD
--- NOTE | 2016-09-27 14:33 | Consult Note ---
Date of Encounter: 09/27/16 Time of Encounter: 14:00 Assessment & Recommendation (1) Severe major depression, single episode, without psychotic features Current visit: Yes Status: Acute Assessment & Recommendation: We recommend elective admission to the psychiatric unit for further treatment and evaluation when patient is medically stabilized. Currently the patient is under care of the medical team for treatment of multiple problems including alcohol withdrawal. Thank you for consultation (2) Alcohol dependence with withdrawal Current visit: Yes Status: Acute Qualifiers: Qualified Code(s): F10.230 - Alcohol dependence with withdrawal, uncomplicated History of Present Illness Patient: new to practice Requesting Physician: Patricia Castaneda Reason for consult: Suicidal ideation History of present illness: Mr. Castro is a 46 year old male admitted to the medical service for treatment of multiple medical issues including chest pain and to the courage and hypertension or heart disease chronic pain and asthma liver cirrhosis and hepatitis C. In addition patient has long history of alcohol dependence and using THC. Patient is currently on [facility]N protocol for alcohol withdrawal and nursing staff report she still scoring high numbers last one was 10. Psychiatric consultation was requested to evaluate suicidal ideation. Patient has no records previous psychiatric treatment or mental health treatment or hospitalization. 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 He admits to feeling helpless and hopeless but denied any intent to self-harm. he admits to drinking alcohol and smoking marijuana on a daily basis. CC: Patricia Castaneda Past Med Surg Social Fam HX - Past Medical History Medical history: cirrhosis, CHF, COPD, coronary artery disease, GERD, hepatitis , hyperlipidemia, hypertension, liver disease, myocardial infarction - Past Psychiatric History Psychiatric history: Reports: no psych history - Past Surgical History Surgical History: coronary bypass (CABG), hip replacement, knee replacement - Social History Smoking Status: Former smoker Smokeless Tobacco Status: No Alcohol use: heavy Drug use: marijuana - Family History Mother Living Status: Age at : 48 Cause of : cancer Hx Family Cancer: Yes Father Living Status: Age at : 62 Cause of : cancer Hx Family Cancer: Yes Brother Living Status: Age at : 37 Cause of : cancer Hx Family Cancer: Yes Medications & Allergies Aspirin Enteric Coated [Aspirin EC] 81 mg PO DAILY 09/26/16 [History] Atorvastatin [Lipitor] 40 mg PO HS 09/26/16 [History] Buspirone HCl [Buspar] 15 mg PO BID 09/26/16 [History] Duloxetine HCl [Cymbalta] 60 mg PO DAILY 09/26/16 [History] Fluticasone/Salmeterol [Advair 250-50 Diskus] 1 puff IH BID 09/26/16 [History] Gabapentin [Neurontin] 600 mg PO BID 09/26/16 [History] HYDROcodone/Acet 7.5/325 mg [[place] 7.5-325 mg] 1 tab PO Q4H PRN 09/26/16 [ History] Lisinopril [Zestril] 10 mg PO DAILY 09/26/16 [History] Metoprolol XL (24 HR) Succ [Toprol XL] 50 mg PO DAILY 09/26/16 [History] Nitroglycerin [Nitrostat] 0.4 mg SL AD PRN 09/26/16 [History] Tiotropium [place] [Spiriva Respimat] 2 puff IH DAILY 09/26/16 [History] Allergies morphine Allergy (Verified 09/26/16 16:01) Hallucinating Penicillins Allergy (Verified 09/26/16 16:01) Blister Review of Systems Psychiatric: Reports: depression, suicidal ideation, hopelessness Mental Status Exam Patient orientation: Yes Person, Yes Time, Yes Place Level of alertness: Alert Patient appearance: Appropriate, Unkempt, Disheveled, Obese Behavior: calm, cooperative, anxious, tearful Psychomotor activity: Slowed Eye contact: Minimal Contact Mood description: Depressed, Anxious Affect description: congruent with mood, constricted Speech pattern: Normal rate, Normal rhythm, Normal tone, Limited Speech volume: Normal Thought process: Linear, Goal Oriented Thought content: Yes Suicidal ideation, No Homicidal ideation, No Overt delusions Perceptual disturbances: No Auditory hallucinations, No Visual hallucinations Attention span: Capable of Focused Attention Memory description: Grossly Intact Patient reliability: Reliable Historian Intelligence estimate: Average Judgment: Limited Insight: Partial Results - Vital Signs Vital signs: Temp Pulse Resp BP Pulse Ox 97.6 F 103 16 137/90 94 09/27/16 11:20 09/27/16 11:20 09/27/16 11:20 09/27/16 11:20 09/27/16 11:20 - Labs Labs: Laboratory Last Values WBC 7.9 K/mcL (4.3-11.1) 09/27/16 04:47 RBC 4.74 M/mcL (4.19-5.50) 09/27/16 04:47 Hgb 15.5 g/dL (12.9-16.9) 09/27/16 04:47 Hct 46.2 % (37.5-50.1) 09/27/16 04:47 MCV 97.5 fL (83.0-100.0) 09/27/16 04:47 MCH 32.7 pg (28.0-33.3) 09/27/16 04:47 MCHC 33.5 g/dL (31.6-35.5) 09/27/16 04:47 RDW 13.1 % (11.5-14.5) 09/27/16 04:47 Plt Count 121 K/mcL (140-400) L 09/27/16 04:47 MPV 9.5 fL (9.4-12.4) 09/27/16 04:47 Immature Gran % 0.5 % (0-4) 09/27/16 04:47 Seg Neutrophils % 62.3 % 09/27/16 04:47 Lymphocytes % 23.6 % 09/27/16 04:47 Monocytes % 6.9 % 09/27/16 04:47 Eosinophils % 5.4 % 09/27/16 04:47 Basophils % 1.3 % 09/27/16 04:47 Neutrophils # 4.9 K/mcL (1.6-8.9) 09/27/16 04:47 Lymphocytes # 1.9 K/mcL (0.6-4.6) 09/27/16 04:47 Monocytes # 0.5 K/mcL (0.0-1.3) 09/27/16 04:47 Eosinophils # 0.4 K/mcL (0.0-0.6) 09/27/16 04:47 Basophils # 0.1 K/mcL (0.0-0.2) 09/27/16 04:47 Immature Plt Fraction 3.6 % (1.1-6.1) 09/26/16 16:39 PT 14.0 Seconds (9.4-12.1) H 09/26/16 16:39 INR 1.3 09/26/16 16:39 APTT 38.9 Seconds (26.0-36.0) H 09/26/16 16:39 D-Dimer 777 ng/mLFEU (0-500) H 09/26/16 16:39 Sodium 138 mEq/L (136-145) 09/27/16 04:47 Potassium 3.8 mEq/L (3.5-4.5) 09/27/16 04:47 Chloride 103 mEq/L (98-109) 09/27/16 04:47 Carbon Dioxide 27 mEq/L (19-29) 09/27/16 04:47 BUN 10 mg/dL (8-26) 09/27/16 04:47 Creatinine 0.96 mg/dL (0.72-1.25) 09/27/16 04:47 Est GFR ( Amer) > 60 (> 60) 09/27/16 04:47 Est GFR (Non-Af Amer) > 60 (> 60) 09/27/16 04:47 BUN/Creatinine Ratio 10 (6-26) 09/27/16 04:47 Glucose 113 mg/dL (70-99) H 09/27/16 04:47 Calculated Osmolality 286 (280-300) 09/27/16 04:47 Lactic Acid 1.6 mmol/L (0.5-2.2) 09/26/16 16:39 Calcium 9.4 mg/dL (8.6-10.8) 09/27/16 04:47 Total Bilirubin 1.7 mg/dL (0.2-1.2) H 09/26/16 16:39 Direct Bilirubin 0.7 mg/dL (0.0-0.5) H 09/26/16 16:39 Indirect Bilirubin 1.0 mg/dL (0.0-1.2) 09/26/16 16:39 AST 63 Units/L (5-34) H 09/26/16 16:39 ALT 41 Units/L (0-55) 09/26/16 16:39 Alkaline Phosphatase 116 Units/L (38-126) 09/26/16 16:39 Ammonia 38 mcmol/L (18-72) 09/26/16 16:39 Troponin I 0.01 ng/mL (0-0.03) 09/27/16 04:47 C-Reactive Protein 8 mg/L (Less than 5) H 09/26/16 16:39 B-Natriuretic Peptide 64 pg/mL (0-100) 09/26/16 16:39 Serum Total Protein 8.4 g/dL (6.0-8.3) H 09/26/16 16:39 Albumin 3.5 g/dL (3.5-5.0) 09/26/16 16:39 Globulin 4.9 g/dL (2.4-3.5) H 09/26/16 16:39 Albumin/Globulin Ratio 0.7 (1.1-2.2) L 09/26/16 16:39 Lipase 24 Units/L (8-78) 09/26/16 16:39 Urine Color Dark Yellow (Yellow) 09/26/16 16:35 Urine Clarity Clear (Clear) 09/26/16 16:35 Urine pH 6.5 pH Units (5.0-8.0) 09/26/16 16:35 Ur Specific [place] 1.018 (1.010-1.025) 09/26/16 16:35 Urine Protein Negative mg/dL (Neg-Trace) 09/26/16 16:35 Urine Glucose (UA) Normal mg/dL (Normal) 09/26/16 16:35 Urine Ketones Negative mg/dL (Negative) 09/26/16 16:35 Urine Blood Negative (Negative) 09/26/16 16:35 Urine Nitrite Negative (Negative) 09/26/16 16:35 Urine Bilirubin Negative (Negative) 09/26/16 16:35 Urine Urobilinogen Normal mg/dL (Normal) 09/26/16 16:35 Ur Leukocyte Esterase Negative (Negative) 09/26/16 16:35 Ur Culture Indicated? NO (NO) 09/26/16 16:35 Urine Opiates Screen Negative ng/mL (Abpfeh=649) 09/26/16 16:35 Ur Barbiturates Screen Negative ng/mL (Yiyynk=209) 09/26/16 16:35 Ur Phencyclidine Scrn Negative ng/mL (Cutoff=25) 09/26/16 16:35 Ur Amphetamines Screen Negative ng/mL (Aeycov=1460) 09/26/16 16:35 U Benzodiazepines Scrn Negative ng/mL (Rwuilc=764) 09/26/16 16:35 Urine Cocaine Screen Negative ng/mL (Cutoff= 300) 09/26/16 16:35 U Marijuana (THC) Screen Positive ng/mL (Cutoff = 50) H 09/26/16 16:35 Consult Discharge Plan - Plan Referrals: NO,PCP [Primary Care Provider] -
--- NOTE | 2016-09-27 16:24 | Internal Med Progress Note ---
Date of Encounter: 09/27/16 Time of Encounter: 15:00 - Assessment and plan (1) Chest pain Current Visit: Yes Status: Acute Assessment and plan: Acute on chronic. Patient stating he has had chest pain over the past 2 years since his surgery. He states his pain is slightly improved from yesterday. Chest x-ray negative. CTA negative for acute processes. Echocardiogram unremarkable with ejection fraction of 55% and mild diastolic dysfunction. Patient euvolemic on examination and denies shortness of breath above his norm. 2 part stress test in process with second part being tomorrow. ITS Impressions Chest X-Ray 09/26/16 16:07 IMPRESSION: No acute findings D/ / Logan Hernandez MD / Logan Hernandez MD Interpreting Provider: Logan Hernandez MD Chest CTA 09/26/16 17:37 IMPRESSION: 1. No CT evidence of a pulmonary embolism. 2. Atherosclerotic disease of the thoracic aorta, without evidence of aneurysm or dissection. 3. Minimal dependent atelectasis within the bilateral lower lobes without acute airspace consolidation. 4. New 3 mm right lower lobe pulmonary nodule, most likely a benign granuloma. However, further follow-up of this nodule is as suggested below. 5. Cirrhosis and portal hypertension. RECOMMENDATIONS: Fleischner Society guidelines for follow-up and management of incidentally detected pulmonary nodules: Single Solid Nodule: Nodule size less than 6 mm In a low-risk patient, no routine follow-up. In a high-risk patient, optional CT at 12 months. - Low risk patients include individuals with minimal or absent history of smoking and other known risk factors. - High risk patients include individuals with a history or smoking or known risk factors. Radiology 2017 http://pubs.rsna.org/doi/full/10.1148/radiol.[email or web address] D/ / 09/26/2016 18:14:12 Fercho Nicholson MD / mayra Interpreting Provider: Fercho Nicholson MD Echocardiogram impressions: LVEF 55%. Normal LV chamber size. No LV segments were well visualized, but overall LV function appears normal. Mild concentric left ventricular hypertrophy. Mild left ventricular diastolic dysfunction. Normal right ventricular structure and function. No evidence of pulmonary hypertension. No significant valvular dysfunction. Qualifiers: Chest pain type: precordial pain Qualified Code(s): R07.2 - Precordial pain (2) CAD (coronary artery disease) Current Visit: Yes Status: Chronic Assessment and plan: Status post CABG 4 in 2014. Second part of stress test tomorrow. Qualifiers: Coronary Disease-Associated Artery/Lesion type: [place] artery [place] vs. transplanted heart: [place] heart Associated angina: angina presence unspecified Qualified Code(s): I25.10 - Atherosclerotic heart disease of [place] coronary artery without angina pectoris (3) History of COPD Current Visit: Yes Status: Chronic Assessment and plan: No acute exacerbation. Patient denies shortness of breath above his norm. (4) Marijuana abuse Current Visit: Yes Status: Chronic (5) Anxiety Current Visit: Yes Status: Chronic (6) Cirrhosis Current Visit: Yes Status: Chronic Assessment and plan: LFTs unremarkable. Patient has been able to tolerate a regular diet. (7) Elevated d-dimer Current Visit: Yes Status: Ruled-out Assessment and plan: CTA negative for PE. (8) Hypertension Current Visit: Yes Status: Chronic Assessment and plan: Hypertensive at times however the patient has been yelling and screaming at times. At home, he takes metoprolol 50 mg daily, lisinopril 10 mg daily and these have both been continued. We will continue to trend and adjust medications as needed. Qualifiers: Hypertension type: essential hypertension Qualified Code(s): I10 - Essential (primary) hypertension (9) Alcohol abuse Current Visit: Yes Status: Chronic Assessment and plan: Despite questioning him several times, patient would not tell me what type of alcoholic drinks nor would he tell me how much he drinks. Strong suspicion for heavy, daily alcohol abuse. Patient stating he is "never gone through withdrawal." We will place him on CIWA protocol (10) Chronic pain Current Visit: Yes Status: Chronic Assessment and plan: Patient complaining of chronic pain to his left knee status post knee replacement 2 years ago. He states he has had several complications after this procedure. He also states that after his open-heart procedure approximately 2 years ago, part of the sternum came apart and he states that now his sternal rubs together every time he moves or changes position or coughs. Of note, the patient stated that he was on [place] 7.5 mg however in review of his [place]ARRS report , he has not received prescriptions for controlled substances since 2014 and that includes [facility] and [place], [place], [place]. He states he does use marijuana on a regular basis to help with his pain and his anxiety. Qualifiers: Chronic pain type: other chronic pain Qualified Code(s): G89.29 - Other chronic pain (11) Suicidal ideation Current Visit: Yes Status: Acute Assessment and plan: Patient continues to endorse suicidal ideation. Patient stating he has nothing to live for. He states that his girlfriend of 13 years in his and February. He also states that he no longer has a house and has been jumping from place to place but then he states "no one will have me." Per Carlos were poor, patient becomes verbally aggressive while drinking alcohol. This was evident when I spoke to him. In attempting to discern whether or not he had a plan, patient became verbally aggressive and stated "Did you not listen to what the fuck I just said? Why would you ask that? Are you going to take my fucking guns? I need to just shut my fucking mouth." No specific plan garnered. This patient is extremely high risk for suicide attempt given his multiple stressors, alcohol dependence, and severe depression. We will place him with a sitter. He has been seen by psychiatry who recommends inpatient psychiatric treatment after he is medically cleared. He will have the second part of the stress test tomorrow morning and will likely be medically cleared at that time depending clinical outcomes. (12) Severe major depression, single episode, without psychotic features Current Visit: Yes Status: Acute (13) DVT prophylaxis Current Visit: Yes Status: Acute Assessment and plan: IPC's ordered which the patient refuses secondary to his chronic left leg pain. Subcutaneous Lovenox ordered - Subjective Interval history: Patient seen and examined. On examination, patient sitting upright on the side of his bed. Patient still endorsing chest pain and states it is lessened since yesterday. Patient endorsing chronic left leg pain. He states that he has had chest pain and left leg pain for the past 2 years since his subsequent cardiac surgery and left knee replacement. Patient became very tearful stating that he would like for somebody to kill him and he stated he would like to end it all. He became very upset and started to yell about "never catching a break." He stated that he had nothing to live for. - Constitutional Vitals: Temp Pulse Resp BP Pulse Ox 97.9 F 85 15 144/91 93 09/27/16 14:42 09/27/16 14:42 09/27/16 14:42 09/27/16 14:42 09/27/16 14:42 General appearance: Present: mild distress (emotional), A&O X 3, pleasant, obese , answers questions appropriately - Head Head exam: Present: atraumatic, normocephalic - Eye Eye exam: Present: PERRL, conjuntiva pink, sclera anicteric Pupils: Present: PERRL - Neck Neck exam general surgery: Present: supple, trachea midline. Absent: lymphadenopathy - Respiratory Respiratory exam: Present: chest wall tenderness (subxiphoid chronic), decreased breath sounds. Absent: accessory muscle use, rales, respiratory distress, rhonchi, wheezes - Cardiovascular Cardiovascular exam: Present: RRR, +S1, +S2. Absent: diastolic murmur, gallop, rubs, systolic murmur - GI/Abdominal GI/Abdominal exam: Present: distended, normal bowel sounds, soft, no peritoneal signs. Absent: tenderness - Extremities Exam Extremities exam: Present: pedal edema (trace; nonpitting), warm, radial pulses palpable and symetrical. Absent: calf tenderness, cyanotic - Neurological Exam Neurological exam: Present: alert, CN II-XII intact, oriented X3, no focal deficits, strengths equal and symetr throughout. Absent: pronater drift, facial droop, speech deficit - Psychiatric Psychiatric exam: Present: agitated, anxious, depressed, suicidal ideation. Absent: homicidal ideation - Expanded Psychiatric Exam Focused psych exam: Present: psychomotor agitation, restlessness - Skin Skin exam: Present: dry, intact, pallor, warm Internal Medicine: Result - Labs CBC & Chem 7: 09/27/16 04:47 09/27/16 04:47 Labs: Short CBC 09/27/16 Range/Units 04:47 WBC 7.9 (4.3-11.1) K/mcL Hgb 15.5 (12.9-16.9) g/dL Hct 46.2 (37.5-50.1) % Plt Count 121 L (140-400) K/mcL Neutrophils # 4.9 (1.6-8.9) K/mcL BMP 09/27/16 04:47 Sodium 138 Potassium 3.8 Chloride 103 Carbon Dioxide 27 BUN 10 Creatinine 0.96 Glucose 113 H Calcium 9.4 Cardiac Enzymes 09/26/16 09/27/16 Range/Units 22:18 04:47 Troponin I 0.00 0.01 (0-0.03) ng/mL - ABG Interpretation ABG results: PT/INR, D-dimer PT 14.0 Seconds (9.4-12.1) H 09/26/16 16:39 D-Dimer 777 ng/mLFEU (0-500) H 09/26/16 16:39 Consult Discharge Plan - Plan Referrals: NO,PCP [Primary Care Provider] -
[2016-09-28] MEDS: *HR* LORazepam 1 MG TABLET PO PRN ×5 (02:41→18:46)
[2016-09-28] MEDS: *HR* HYDROcodone/Acet 7.5/325 mg TABLET PO PRN ×5 (02:41→18:45)
[2016-09-28] MEDS ORDERED: *HR* Enoxaparin 30 MG/0.3 ML SYRINGE SQ SCH (07:00)
[2016-09-28] MEDS: Gabapentin 300 MG CAPSULE PO SCH (08:19)
[2016-09-28] MEDS: Aspirin Enteric Coated 81 MG Tablet PO SCH (08:20)
[2016-09-28] MEDS: Metoprolol XL (24 HR) Succ 50 MG TAB.ER.24H PO SCH (08:20)
--- NOTE | 2016-09-28 10:27 | Nuclear Medicine Stress Report ---
Regadenoson Nuclear 2 day Name: Isis Castro Date of Study: 09/27/2016 Date: 1970 Ht: 70.0 in Medical Record#: [id number] Age: 46 Wt: 260.0 lb Gender: Male Order #: [id number] Location: [facility] Room: [facility] Supervising Provider: Murray Tolbert CNP Reading Physician: Nicola Malhotra MD, [facility] Ordering Physician: Patricia Lawrence CNP Primary Care Physician: Ceci Campos MD Stress Technologist: Dominic Paige GLUE PLANT OPERATOR, CCT Nitric Acid Concentrator Operator: Mina Alfonso Indications: Chest Pain Impression: Study quality was fair due to patient motion artifact. Gated LVEF = 53%. Perfusion imaging was negative for ischemia or infarct. History: Hypertension Hypercholesteremia History of Coronary Artery Bypass Surgery Stress Test Summary: Stress Test Type: Pharmacologic Regadenoson 0.4mg/5ml given IV Baseline Information: Initial Heart Rate: 104 Blood Pressure: 130/90 Stress Information: Test Terminated Due to (primary): As per protocol Maximum Blood Pressure: 134/94 Maximum Heart Rate: 114 Percent Maximum Heart Rate Achieved: 66 Double Product: 61028 Symptoms: Shortness of breath Nuclear Summary: SPECT myocardial perfusion imaging using Tc99m Sestamibi given intravenously was performed at rest and following cardiac stress testing. The resting images were obtained following initial dose of 34.4 mCi. Following stress an additional dose of 34.8 mCi was given at peak exercise or 30 seconds post regadenoson infusion. Findings: Stress Note * Resting ECG demonstrated sinus tachycardia (104 bpm), poor r-wave progression, non-specific ST-T wave abnormality. * No baseline arrhythmias were noted. * Patient had no chest pain during stress. * No arrhythmias were noted during stress. * No significant ECG changes with regadenoson. Hemodynamic responses * Normal hemodynamic responses to pharmacologic stress. Study Quality * Study quality was fair due to patient motion artifact. Gated EF % * Gated LVEF = 53%. Left Ventricle * The left ventricle is not dilated. * Normal Segmental Perfusion in rest. * Normal segmental perfusion in stress. * Patient motion artifact is noted. TID * No evidence of transient ischemic dilatation. Updated by Nicola Malhotra MD, [facility] on 09/28/2016 10:19:19 AM electronically signed on 09/28/2016 10:20:33 AM with status of Final
[2016-09-28 14:47] VITALS: BP 124/59
--- NOTE | 2016-09-28 17:51 | Discharge Summary ---
Date of Encounter: 09/28/16 Time of Encounter: 16:15 - Discharge Diagnosis (1) Chest pain Priority: Primary Status: Chronic Comments: Patient with chronic left-sided chest pain since his open heart surgery 2 years ago. Pain improved on day of discharge. ACS ruled out. Stress test negative. Qualifiers: Chest pain type: precordial pain Qualified Code(s): R07.2 - Precordial pain (2) CAD (coronary artery disease) Priority: Secondary Status: Chronic Qualifiers: Coronary Disease-Associated Artery/Lesion type: [place] artery [place] vs. transplanted heart: [place] heart Associated angina: angina presence unspecified Qualified Code(s): I25.10 - Atherosclerotic heart disease of [place] coronary artery without angina pectoris (3) History of COPD Priority: Secondary Status: Chronic Comments: No acute exacerbation (4) Marijuana abuse Priority: Secondary Status: Chronic Comments: Patient endorses regular marijuana abuse. Tox screen positive for marijuana (5) Anxiety Priority: Secondary Status: Chronic (6) Cirrhosis Priority: Secondary Status: Chronic Comments: LFTs unremarkable. Patient able to tolerate a regular diet while admitted. Follow-up outpatient. (7) Elevated d-dimer Priority: Primary Status: Ruled-out Comments: CTA negative (8) Hypertension Priority: Secondary Status: Chronic Comments: Hypertensive at times however the patient has been yelling and screaming at times. At home, he takes metoprolol 50 mg daily, lisinopril 10 mg daily and these have both been continued. Normotensive at time of discharge Qualifiers: Hypertension type: essential hypertension Qualified Code(s): I10 - Essential (primary) hypertension (9) Alcohol abuse Priority: Secondary Status: Chronic Comments: Despite questioning him several times, patient would not tell me what type of alcohol he drinks nor would he tell me how much he drinks. Strong suspicion for heavy, daily alcohol abuse. Patient stating he is "never gone through withdrawal." He was on CIWA protocol while admitted. He was responsive to by mouth Ativan placed on him per psychiatry, will defer to psychiatry for further management (10) Chronic pain Priority: Secondary Status: Chronic Comments: Patient complaining of chronic pain to his left knee status post knee replacement 2 years ago. He states he has had several complications after this procedure. He also states that after his open-heart procedure approximately 2 years ago, part of the sternum came apart and he states that now his sternal rubs together every time he moves or changes position or coughs. Of note, the patient stated that he was on [place] 7.5 mg however in review of his [place]AR[place] report , I was unable find any active prescriptions for controlled substances since 2014 and that includes [facility] and [place], [place], [place], and [place]. He states that he gets his medication from his primary care provider in [place]. I have no way to verify this as [place] does not communicate with [facility]. I will leave chronic pain management to his primary care providers. He states he does use marijuana on a regular basis to help with his pain and his anxiety. Qualifiers: Chronic pain type: other chronic pain Qualified Code(s): G89.29 - Other chronic pain (11) Suicidal ideation Priority: Primary Status: Acute (12) Severe major depression, single episode, without psychotic features Priority: Primary Status: Acute (13) DVT prophylaxis Priority: Primary Status: Acute Comments: Subcutaneous Lovenox while admitted - Discharge Medications Prescriptions: Nitroglycerin [Nitrostat] 0.4 mg SL AD PRN #30 tab.subl PRN Reason: Chest Pain Home Medications: Aspirin Enteric Coated [Aspirin EC] 81 mg PO DAILY 09/26/16 [History] Atorvastatin [Lipitor] 40 mg PO HS 09/26/16 [History] Buspirone HCl [Buspar] 15 mg PO BID 09/26/16 [History] Duloxetine HCl [Cymbalta] 60 mg PO DAILY 09/26/16 [History] Fluticasone/Salmeterol [Advair 250-50 Diskus] 1 puff IH BID 09/26/16 [History] Gabapentin [Neurontin] 600 mg PO BID 09/26/16 [History] HYDROcodone/Acet 7.5/325 mg [[place] 7.5-325 mg] 1 tab PO Q4H PRN 09/26/16 [ History] Lisinopril [Zestril] 10 mg PO DAILY 09/26/16 [History] Metoprolol XL (24 HR) Succ [Toprol Xl] 50 mg PO DAILY 09/26/16 [History] Tiotropium [place] [Spiriva Respimat] 2 puff IH DAILY 09/26/16 [History] Nitroglycerin [Nitrostat] 0.4 mg SL AD PRN #30 tab.subl 09/28/16 [Rx] Allergies/Adverse Reactions: Allergies morphine Allergy (Verified 09/26/16 16:01) Hallucinating Penicillins Allergy (Verified 09/26/16 16:01) Blister Procedures/tests Complete & Pending: Procedures Performed prior 72 hours Category Date Time Status NM tammy perf SPECT multi [NM] Routine Exams 09/26/16 20:51 Taken EV echocardiogram Routine Y 09/27/16 08:03 Completed SP pharm nuclear stress Routine Y 09/27/16 07:00 Completed Date of admission: 09/26/16 19:06 Primary care physician: PCP NO Consults: 09/26/16 20:06 Consult to Fishing Gear Mechanic [CONS] Routine Reason for SW Consult: alcoholic. 09/26/16 20:49 Consult to Psychiatry [CONS] Routine Consulting Provider: Psychiatry Corazon Reason for Consult: patient expressed suicidal ideation Call Completed: Yes Discharging clinician: Patricia Lawrence Anticipated date of discharge: 09/28/16 (transferring to [address]) - Patient Status Disposition: Transfer Psychiatric Hosp Condition: Fair Functional capacity at discharge: independent ambulation Overall status at discharge: patient is progressing back to baseline - Discharge Instructions Follow Up With: Frieda Mccloud PCP in [facility] [phone] [Other] Additional Instructions: Follow-up with your primary care provider regarding your pain management. - Diet and Activity Activity: increase activity as tolerated Diet: low fat, low cholesterol, low salt diet Hospital course: Mr. Castro is a 46 year old male with past medical history of CAD status post CABG 4 in 2014, hyperlipidemia, hypertension, cirrhosis, chronic pain, headache alcohol abuse, former tobacco abuse, heavy marijuana abuse. Patient presented to the emergency room for chief complaint left-sided chest pain that he noted when he woke up on the morning of presentation that radiated to his left shoulder. He described the pain as sharp and severe and stated that he took nitroglycerin and went back to sleep when he woke back up, the pain was still there and had been persistent throughout the day not relieved by nitroglycerin, aspirin or pain medication given in the emergency department. Patient also endorsed intermittent lightheadedness and shortness of breath but not increased from his baseline. EKG in the emergency department revealing sinus tach without new findings. D-dimer elevated and CTA was obtained which ruled out a PE. CTA also revealed pulmonary nodule, likely benign, follow-up outpatient. Chest x-ray negative. Patient was admitted to the hospitalist service for further evaluation and management. Upon further discussion, patient stating he has had chest pain for 2 years since his open-heart surgery. He also complained of left knee pain for 2 years since his knee replacement. Echocardiogram unremarkable with ejection fraction of 55% and mild diastolic dysfunction. Patient euvolemic on examination during this admission he denied shortness of breath above his norm. Patient had a 2 day nuclear stress test that was negative. ACS ruled out. During this admission, patient's mood would oscillate quickly between crying and screaming. Patient endorsed suicidal ideation several times throughout this admission. He became verbally aggressive with staff at times. He is a heavy drinker and heavy marijuana abuser which she states helps with his chronic pain and his issues. He states that he lost his girlfriend of 13 years to cancer couple months ago. 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 Patient stating he wanted someone to put him out of his misery. He would not reference a plan for his suicide but he would allude to the guns that he owns. He was placed with a constant attendant and psychiatry was brought on board. After speaking with psychiatry, patient agreed to be voluntarily admitted down to her inpatient psychiatric unit. He was medically cleared and transferred and care was transferred. Regarding his chronic pain medication, I was unable to get ahold of his primary care provider from [place] and unfortunately, [place] does not collaborate with [facility] so was unable to check when his last pain medication was filled. Pain medication not written upon discharge, will leave that to the discretion of his primary care team. Pain medication also not written given that he had marijuana in his system as well and would likely not adhere to a pain contract. Patient was extremely upset and demanded that his pain medication be written for. He also demanded that he be taken off his BuSpar because he does not like to wait makes him feel, he stated that he would rather have lorazepam. By mouth lorazepam was given to him by psychiatry during this admission for anxiety, we will leave that to their discretion since I am transferring him down to the inpatient psychiatric unit. Patient also requested a refill of his nitroglycerin tablets which he was given. He was discharged out of the inpatient psychiatric unit in stable condition with close outpatient follow-up highly recommended. ITS Impressions Chest X-Ray 09/26/16 16:07 IMPRESSION: No acute findings D/ / Logan Hernandez MD / Logan Hernandez MD Interpreting Provider: Logan Hernandez MD Chest CTA 09/26/16 17:37 IMPRESSION: 1. No CT evidence of a pulmonary embolism. 2. Atherosclerotic disease of the thoracic aorta, without evidence of aneurysm or dissection. 3. Minimal dependent atelectasis within the bilateral lower lobes without acute airspace consolidation. 4. New 3 mm right lower lobe pulmonary nodule, most likely a benign granuloma. However, further follow-up of this nodule is as suggested below. 5. Cirrhosis and portal hypertension. RECOMMENDATIONS: Fleischner Society guidelines for follow-up and management of incidentally detected pulmonary nodules: Single Solid Nodule: Nodule size less than 6 mm In a low-risk patient, no routine follow-up. In a high-risk patient, optional CT at 12 months. - Low risk patients include individuals with minimal or absent history of smoking and other known risk factors. - High risk patients include individuals with a history or smoking or known risk factors. Radiology 2017 http://pubs.rsna.org/doi/full/[email or web address] D/ / 09/26/2016 18:14:12 Fercho Nicholson MD / [facility] Interpreting Provider: Fercho Nicholson MD Echocardiogram impressions: LVEF 55%. Normal LV chamber size. No LV segments were well visualized, but overall LV function appears normal. Mild concentric left ventricular hypertrophy. Mild left ventricular diastolic dysfunction. Normal right ventricular structure and function. No evidence of pulmonary hypertension. No significant valvular dysfunction. 2 Day nuclear stress test impression: Study quality was fair due to patient motion artifact. Gated LVEF equals 53%. Perfusion imaging was negative for ischemia or infarct. - Time Spent with Patient Total time spent providing and/or coordinating discharge services: - Constitutional Vitals: Temp Pulse Resp BP Pulse Ox 97.7 F 75 16 124/59 93 09/28/16 14:44 09/28/16 14:44 09/28/16 14:44 09/28/16 14:44 09/28/16 14:44 General appearance: Present: A&O X 3, pleasant, no acute distress, obese, answers questions appropriately - Head Head exam: Present: atraumatic, normocephalic - Eye Eye exam: Present: PERRL, conjuntiva pink, sclera anicteric Pupils: Present: PERRL - Neck Neck exam general surgery: Present: supple, trachea midline. Absent: lymphadenopathy - Respiratory Respiratory exam: Present: chest wall tenderness, decreased breath sounds. Absent: accessory muscle use, rales, respiratory distress, rhonchi, wheezes - Cardiovascular Cardiovascular exam: Present: RRR, +S1, +S2. Absent: diastolic murmur, gallop, rubs, systolic murmur - GI/Abdominal GI/Abdominal exam: Present: normal bowel sounds, soft, no peritoneal signs. Absent: distended, tenderness - Extremities Exam Extremities exam: Present: warm, radial pulses palpable and symetrical. Absent : calf tenderness, cyanotic, pedal edema - Expanded Lower Extremities Exam Knee exam: Present: tenderness. Absent: normal inspection - Neurological Exam Neurological exam: Present: alert, CN II-XII intact, oriented X3, no focal deficits, strengths equal and symetr throughout. Absent: pronater drift, facial droop, speech deficit - Skin Skin exam: Present: dry, intact, normal color, warm
[2016-09-29] MEDS ORDERED: *HR* Enoxaparin 40 MG/0.4 ML SYRINGE SQ SCH (06:00)
== END 2016-09-28 18:56 ==
LOC: 3BNU 15:50 → EMEROO 15:50 → 3BNU 19:59
PROVIDERS: ADMIT Nurse Practitioner Family; ATTEND Nurse Practitioner Family

== ENCOUNTER 2016-09-28 18:57 | Inpatient (IN) ==
[2016-09-28] MEDS ORDERED: traZODone 50 MG TABLET PO PRN (20:35)
[2016-09-28] MEDS ORDERED: *HR* LORazepam 2 MG/ML VIAL IM PRN (20:35)
[2016-09-28] MEDS ORDERED: MOM Conc 10 ML UD.LIQ PO PRN (20:35)
[2016-09-28] MEDS ORDERED: Mag Hydrox/Al Hydrox/Simeth 30 ML UDC PO PRN (20:35)
[2016-09-28] MEDS ORDERED: Haloperidol Lactate 5 MG/ML VIAL IM PRN (20:35)
[2016-09-28] MEDS ORDERED: *HR* HYDROcodone/Acet 7.5/325 mg TABLET PO PRN (20:38)
[2016-09-28] MEDS: Gabapentin 300 MG CAPSULE PO SCH (21:16)
[2016-09-28] MEDS: Fluticasone Propionate Nasal 50 MCG/SPRAY BOTTLE NS SCH (21:20)
[2016-09-28] MEDS: hydrOXYzine pamoate 25 MG CAPSULE PO PRN (21:26)
[2016-09-28] MEDS: *HR* LORazepam 1 MG TABLET PO PRN (23:25)
[2016-09-28] MEDS: *HR* HYDROcodone/Acet 7.5/325 mg TABLET PO PRN (23:26)
[2016-09-29] MEDS: *HR* HYDROcodone/Acet 7.5/325 mg TABLET PO PRN ×4 (03:27→19:40)
[2016-09-29] MEDS: *HR* LORazepam 1 MG TABLET PO PRN ×4 (03:27→20:39)
[2016-09-29] MEDS: Gabapentin 300 MG CAPSULE PO SCH ×2 (09:32→20:39)
[2016-09-29] MEDS: Metoprolol XL (24 HR) Succ 50 MG TAB.ER.24H PO SCH (09:33)
[2016-09-29] MEDS: Fluticasone Propionate Nasal 50 MCG/SPRAY BOTTLE NS SCH ×2 (09:33→20:43)
[2016-09-29] MEDS: Aspirin Enteric Coated 81 MG Tablet PO SCH (09:33)
[2016-09-29] MEDS: Ibuprofen 400 MG TABLET PO PRN (10:41)
--- NOTE | 2016-09-29 11:47 | Psychiatry History & Physical ---
Date of Encounter: 09/30/16 Time of Encounter: 11:00 History of Present Illness Patient Stated Chief Complaint: Suicidal ideation Medicare Admission Attestation: For traditional Medicare patients the provided hospital inpatient services are reasonable and necessary and in the case of services not specified as inpatient -only under 42 CFR 419.22 (n), that they are appropriately provided as inpatient services in accordance 42 CFR 412.3. For Critical Access Hospital the patient may reasonably be expected to be discharged or transferred to a hospital within 96 hours after admission to the Critical Access Hospital. Admitted From: Intrahospital Transfer (Transferred from 3B) History of Present Illness: Mr. Bennett is a 46 year old male admitted as a transfer from the medical floor 3B for further evaluation treatments of depression and suicidal ideation in addition to alcohol dependence. Please refer to my consultation report. Patient was consulted on and recommended elective admission to psychiatry to evaluate and treat depression and Connect the patient outpatient resources. Patient is reporting hopelessness and suicidal ideation and stressed out by financial problems and homelessness. Patient is also dependent on alcohol and he was treated for alcohol withdrawal on the medical units. Patient denies any previous psychiatric treatment or hospitalization or rehabilitation. He denies any previous suicide attempts. Past Med Surg Social Fam HX - Past Medical History Medical history: cirrhosis, CHF, COPD, coronary artery disease, GERD, hepatitis , hyperlipidemia, hypertension, liver disease, myocardial infarction - Past Psychiatric History Psychiatric history: Reports: no psych history - Past Surgical History Surgical History: coronary bypass (CABG), hip replacement, knee replacement - Social History Smoking Status: Former smoker Smokeless Tobacco Status: No Alcohol use: heavy Drug use: marijuana - Family History Mother History Unknown: Yes Adopted: No Family Member Ethnicity: Non- Living Status: Hx Family Cardiac Disorders: No Hx Family Respiratory Disorders: No Hx Family Cancer: No Hx Family GI Disorders: No Hx Family Genitourinary Disorders: No Hx Family Endocrine Disorder: No Hx Family Musculoskeletal Disorders: No Hx Family Neuromuscular Disorders: No Hx Family Neurologic Disorders: No Hx Family HEENT Disorders: No Hx Family Autoimmune Disorders: No Hx Family Reproductive Disorders: No Hx Family Psychosocial Disorders: No Hx Family Medical Disorders: No Father Adopted: No Family Member Ethnicity: Non- Living Status: Hx Family Cancer: Yes Brother History Unknown: Yes Adopted: Yes (from father) Name: shaggy bennett Age: 47 Family Member Ethnicity: Non- Living Status: Hx Family Cardiac Disorders: Yes Hx Family Respiratory Disorders: Yes Hx Family Cancer: Yes (mom at 48, brother at 37) Hx Family GI Disorders: Yes Hx Family Genitourinary Disorders: Yes Hx Family Endocrine Disorder: Yes Hx Family Musculoskeletal Disorders: Yes (multiple sclerosis) Hx Family Neuromuscular Disorders: Yes (mother, brother) Hx Family Neurologic Disorders: No Hx Family HEENT Disorders: No Hx Family Autoimmune Disorders: No Hx Family Reproductive Disorders: No Hx Family Psychosocial Disorders: No Hx Family Medical Disorders: No Medications & Allergies Aspirin Enteric Coated [Aspirin EC] 81 mg PO DAILY 09/26/16 [History] Atorvastatin [Lipitor] 40 mg PO HS 09/26/16 [History] Buspirone HCl [Buspar] 15 mg PO BID 09/26/16 [History] Duloxetine HCl [Cymbalta] 60 mg PO DAILY 09/26/16 [History] Fluticasone/Salmeterol [Advair 250-50 Diskus] 1 puff IH BID 09/26/16 [History] Gabapentin [Neurontin] 600 mg PO BID 09/26/16 [History] HYDROcodone/Acet 7.5/325 mg [[place] 7.5-325 mg] 1 tab PO Q4H PRN 09/26/16 [ History] Lisinopril [Zestril] 10 mg PO DAILY 09/26/16 [History] Metoprolol XL (24 HR) Succ [Toprol Xl] 50 mg PO DAILY 09/26/16 [History] Tiotropium [place] [Spiriva Respimat] 2 puff IH DAILY 09/26/16 [History] Nitroglycerin [Nitrostat] 0.4 mg SL AD PRN #30 tab.subl 09/28/16 [Rx] Allergies morphine Allergy (Verified 09/26/16 16:01) Hallucinating Penicillins Allergy (Verified 09/26/16 16:01) Blister Review of Systems Psychiatric: Reports: depression, suicidal ideation, hopelessness Mental Status Exam Patient orientation: Yes Person, Yes Time, Yes Place Level of alertness: Alert Patient appearance: Appropriate, Unkempt, Disheveled Behavior: calm, cooperative Psychomotor activity: Slowed Eye contact: Minimal Contact Mood description: Depressed, Anxious Affect description: congruent with mood, constricted, tearful Speech pattern: Normal rate, Normal rhythm, Normal tone Speech volume: Normal Thought process: Linear, Goal Oriented Thought content: Yes Suicidal ideation, No Homicidal ideation, No Overt delusions Perceptual disturbances: No Auditory hallucinations, No Visual hallucinations Attention span: Capable of Focused Attention Memory description: Grossly Intact Patient reliability: Reliable Historian Intelligence estimate: Average Judgment: Limited Insight: Partial Results - Vital Signs Vital signs: Temp Pulse Resp BP 97.8 F 119 20 130/93 09/29/16 09:00 09/29/16 09:00 09/29/16 09:00 09/29/16 09:00 Assessment and Plan (1) Severe major depression, single episode, without psychotic features Current visit: Yes Status: Acute Plan: Admit inpatient for safety and stabilization, Close observation, Suicide Precautions per unit protocol, Encourage participation in unit milieu, Group Therapy, Monitor sleep, Monitor appetite Additional Plan: Will increase Cymbalta to 60 mg twice a day. Patient was advised on how to dependence and encouraged to cut down on his smoking and alcohol and caffeine. Risks, benefits, side effects, alternatives discussed w/pt: Yes Patient agreeable to treatment: Yes Estimated Length of Stay (Days): 5 (2) Alcohol dependence Current visit: Yes Status: Acute Plan: Admit inpatient for safety and stabilization, Close observation, Suicide Precautions per unit protocol, Encourage participation in unit milieu, Group Therapy, Monitor sleep, Monitor appetite Qualifiers: Substance use status: in withdrawal Qualified Code(s): F10.230 - Alcohol dependence with withdrawal, uncomplicated
[2016-09-30] MEDS: *HR* HYDROcodone/Acet 7.5/325 mg TABLET PO PRN ×6 (00:15→20:51)
[2016-09-30] MEDS: *HR* LORazepam 1 MG TABLET PO PRN ×2 (00:15→05:03)
[2016-09-30] MEDS: Aspirin Enteric Coated 81 MG Tablet PO SCH (08:10)
[2016-09-30] MEDS: Gabapentin 300 MG CAPSULE PO SCH ×2 (08:10→20:50)
[2016-09-30] MEDS: Metoprolol XL (24 HR) Succ 50 MG TAB.ER.24H PO SCH (08:11)
[2016-09-30] MEDS: Fluticasone Propionate Nasal 50 MCG/SPRAY BOTTLE NS SCH ×2 (08:11→20:52)
[2016-09-30] MEDS: diazePAM 5 MG TABLET PO SCH ×3 (09:04→20:50)
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
[2016-10-01] MEDS: *HR* HYDROcodone/Acet 7.5/325 mg TABLET PO PRN ×5 (01:11→20:36)
[2016-10-01] MEDS: diazePAM 5 MG TABLET PO SCH ×3 (02:39→16:43)
[2016-10-01] MEDS: Aspirin Enteric Coated 81 MG Tablet PO SCH (08:52)
[2016-10-01] MEDS: Gabapentin 300 MG CAPSULE PO SCH ×2 (08:53→20:36)
[2016-10-01] MEDS: Fluticasone Propionate Nasal 50 MCG/SPRAY BOTTLE NS SCH ×2 (08:54→20:37)
[2016-10-01] MEDS: Metoprolol XL (24 HR) Succ 50 MG TAB.ER.24H PO SCH (08:54)
--- NOTE | 2016-10-01 13:24 | Psychiatry Progress Note ---
Date of Encounter: 10/01/16 Time of Encounter: 13:00 Subjective Interval history: Patient is seen for follow-up with the nursing staff. He continued to be negative and focused on losses in his life. Staff report he continued to be focused on pain medication and benzodiazepine and requesting that every 4 hours. He is also irritable and easily agitated and unable to state any goals or plans after discharge. On assessment she denies suicidal and homicidal ideation. He reports hearing voices for the first time and could not describe details of the auditory hallucinations and denies any command hallucination." Review of Systems Psychiatric: Reports: depression, suicidal ideation, hopelessness Objective: Exam Patient orientation: Yes Person, Yes Time, Yes Place Level of alertness: Alert Patient appearance: Appropriate, Well Groomed, Obese Behavior: calm, cooperative, hostile, guarded Psychomotor activity: Normal Eye contact: Avoids Eye Contact Mood description: Anxious, Irritable Affect description: congruent with mood, labile, constricted, dysphoric Speech pattern: Normal rate, Normal rhythm, Normal tone, Slowed, Repetitive Speech volume: Normal Thought process: Linear, Goal Oriented, Circumstantial Thought content: No Suicidal ideation, No Homicidal ideation, No Overt delusions Perceptual disturbances: Yes Auditory hallucinations, No Visual hallucinations Judgment: Fair Insight: Partial Results - Vital Signs Vital Signs: Temp Pulse Resp BP 97.5 F L 79 16 154/94 10/01/16 09:09 10/01/16 09:09 10/01/16 09:09 10/01/16 09:09 Assessment and Plan (1) Severe major depression, single episode, without psychotic features Current visit: Yes Status: Acute Plan: Continue hospitalization, Close observation, Suicide Precautions per unit protocol, Encourage participation in unit milieu, Group Therapy, Monitor sleep, Monitor appetite Additional Plan: We will start the Abilify 10 mg daily, benefits and side effects were discussed patient is agreeable to start will monitor. Risks, benefits, side effects, alternatives discussed w/pt: Yes Patient agreeable to treatment: Yes (2) Alcohol dependence Current visit: Yes Status: Acute Plan: Continue hospitalization, Close observation, Suicide Precautions per unit protocol, Encourage participation in unit milieu, Group Therapy, Monitor sleep, Monitor appetite Qualifiers: Substance use status: in withdrawal Consult Discharge Plan - Plan Referrals: NO,PCP [Primary Care Provider] -
[2016-10-01] MEDS: ARIPiprazole 10 MG TABLET PO SCH (13:52)
[2016-10-02] MEDS: *HR* HYDROcodone/Acet 7.5/325 mg TABLET PO PRN ×5 (01:04→20:19)
[2016-10-02] MEDS: diazePAM 5 MG TABLET PO SCH ×3 (01:05→20:19)
[2016-10-02] MEDS: ARIPiprazole 10 MG TABLET PO SCH (09:15)
[2016-10-02] MEDS: Fluticasone Propionate Nasal 50 MCG/SPRAY BOTTLE NS SCH ×2 (09:15→20:21)
[2016-10-02] MEDS: Aspirin Enteric Coated 81 MG Tablet PO SCH (09:16)
[2016-10-02] MEDS: Metoprolol XL (24 HR) Succ 50 MG TAB.ER.24H PO SCH (09:17)
[2016-10-02] MEDS: Gabapentin 300 MG CAPSULE PO SCH ×2 (09:17→20:21)
[2016-10-02] MEDS ORDERED: Nitroglycerin 0.4 MG TAB.SUBL SL PRN (12:54)
[2016-10-02] MEDS: Tiotropium 18 MCG inhalation IH SCH (13:57)
[2016-10-03] MEDS: *HR* HYDROcodone/Acet 7.5/325 mg TABLET PO PRN ×6 (00:28→21:15)
[2016-10-03] MEDS: ARIPiprazole 10 MG TABLET PO SCH (08:55)
[2016-10-03] MEDS: diazePAM 5 MG TABLET PO SCH (08:56)
[2016-10-03] MEDS: Aspirin Enteric Coated 81 MG Tablet PO SCH (08:56)
[2016-10-03] MEDS: Metoprolol XL (24 HR) Succ 50 MG TAB.ER.24H PO SCH (08:57)
[2016-10-03] MEDS: Gabapentin 300 MG CAPSULE PO SCH ×2 (08:57→21:15)
[2016-10-03] MEDS: Fluticasone Propionate Nasal 50 MCG/SPRAY BOTTLE NS SCH ×2 (08:58→21:19)
[2016-10-03] MEDS: Tiotropium 18 MCG inhalation IH SCH (09:01)
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
--- NOTE | 2016-10-03 18:21 | Psychiatry Progress Note ---
Date of Encounter: 10/03/16 Time of Encounter: 18:18 Subjective Interval history: Doing a little better today. "I'm vertical." Home meds ordered and pain under better control. Social work spent a lot of time on the phone with his sister and she is willing to have him return to live with her provided he takes his meds and does not drink. According to client if he is on his meds his pain is controlled and he won't have to drink. Not sleeping well. Does not like Trazodone. Previously took Remeron with positive results. Remeron has sedating and antidepressant properties so might be a good choice for mood and sleep. Complaining of some diarrhea likely related to stopping opiates for a few days while inpatient. Will make med changes and likely discharge tomorrow. Review of Systems Constitutional: Denies: fever, chills, weakness, weight change Eyes: Denies: eye pain, vision change Ears, Nose, Throat: Denies: ear pain, throat pain, dental pain, hearing loss, congestion Cardiovascular: Denies: chest pain, palpitations, dyspnea on exertion Respiratory: Denies: cough, dyspnea, wheezes Gastrointestinal: Reports: diarrhea. Denies: abdominal pain, nausea, vomiting, constipation Musculoskeletal: Reports: back pain, myalgia. Denies: joint swelling, joint pain Neurological: Denies: headache, weakness, numbness, memory loss Psychiatric: Reports: depression, suicidal ideation, hopelessness Objective: Exam Patient orientation: Yes Person, Yes Time, Yes Place Level of alertness: Alert Patient appearance: Appropriate Behavior: cooperative, anxious Psychomotor activity: Normal Eye contact: Maintains Eye Contact Mood description: Depressed Affect description: congruent with mood Speech pattern: Normal rate, Normal rhythm, Normal tone Speech volume: Normal Thought process: Linear, Goal Oriented Thought content: No Suicidal ideation, No Homicidal ideation, No Overt delusions Perceptual disturbances: No Auditory hallucinations, No Visual hallucinations Judgment: Fair Insight: Partial Results - Vital Signs Vital Signs: Temp Pulse Resp BP 96.8 F L 94 16 118/81 10/03/16 09:00 10/03/16 09:21 10/03/16 09:21 10/03/16 09:21 Assessment and Plan (1) Suicidal ideation Current visit: No Status: Acute Plan: Continue hospitalization, Close observation, Suicide Precautions per unit protocol, Encourage participation in unit milieu, Group Therapy, Monitor sleep, Monitor appetite, Secure weapons Risks, benefits, side effects, alternatives discussed w/pt: Yes Patient agreeable to treatment: Yes Consult Discharge Plan - Plan Referrals: NO,PCP [Primary Care Provider] -
[2016-10-03] MEDS ORDERED: Mirtazapine 15 MG TABLET PO SCH (21:00)
[2016-10-03] MEDS: Ibuprofen 400 MG TABLET PO PRN (21:16)
[2016-10-03] MEDS: hydrOXYzine pamoate 25 MG CAPSULE PO PRN (22:03)
[2016-10-04] MEDS: *HR* HYDROcodone/Acet 7.5/325 mg TABLET PO PRN ×3 (02:08→13:06)
[2016-10-04] MEDS: Aspirin Enteric Coated 81 MG Tablet PO SCH (09:02)
[2016-10-04] MEDS: Gabapentin 300 MG CAPSULE PO SCH (09:03)
[2016-10-04] MEDS: Metoprolol XL (24 HR) Succ 50 MG TAB.ER.24H PO SCH (09:04)
[2016-10-04] MEDS: Tiotropium 18 MCG inhalation IH SCH (09:04)
[2016-10-04] MEDS: ARIPiprazole 10 MG TABLET PO SCH (09:04)
[2016-10-04] MEDS: Fluticasone Propionate Nasal 50 MCG/SPRAY BOTTLE NS SCH ×2 (09:05→09:10)
[2016-10-04 09:20] VITALS: BP 129/90
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
== END 2016-10-04 15:59 | disposition home or self-care (01) | DRG 885 ==
LOC: SUATTDRO 18:57 → 1ANU 18:57
PROVIDERS: ADMIT Psychiatry & Neurology Psychiatry; ATTEND Psychiatry & Neurology Psychiatry

== ENCOUNTER 2016-10-24 09:28 | Observation (INO) ==
[2016-10-24] MEDS ORDERED: *HR* HYDROmorphone (PF) 1 MG/ML SYRINGE IVP ONE ×3 (09:37→17:28)
[2016-10-24] MEDS ORDERED: Aspirin 81 MG TAB.CHEW PO ONE (09:37)
[2016-10-24] MEDS ORDERED: Nitroglycerin 1 INCH/GM PACKET TP ONE (09:37)
[2016-10-24] MEDS ORDERED: Ondansetron 4 MG/2 ML VIAL IVP ONE (09:37)
--- NOTE | 2016-10-24 09:40 | Emergency Department Note ---
Disposition Clinical Impression: Chest pain Qualifiers: Chest pain type: unspecified Qualified Code(s): R07.9 - Chest pain, unspecified Disposition: Admitted As Inpatient Condition: Fair Referrals: NO,PCP [Primary Care Provider] - Forms: ED Satisfaction Letter Time of Disposition: 10:57 Chest Pain HPI - General Chief Complaint: ED Chest Pain Stated Complaint: Chest Pain s/p CABG 3 years ago Time Seen by Provider: 10/24/16 09:33 Source: patient Limitations: no limitations Vital Signs Reviewed: Yes Nursing Notes Reviewed: Yes - History of Present Illness HPI Narrative: 46-year-old with a history of previous coronary artery disease with bypass surgery comes in complaining of chest pain since yesterday. States the pain feels similar to what he had prior to his previous ND. States some swelling of his lower extremities. States the patient just moved here from [place] and does not have a family doctor. Pt complaint: chest pain Onset (ago): day(s) Duration: constant Onset: during rest Pain Location: substernal, left chest Severity scale (1-10): 10 Quality: tightness, aching, heaviness Pain Radiation: none Improves with: nothing Worsens with: nothing Associated symptoms: Reports: leg swelling. Denies: syncope, palpitations Treatments prior to arrival chest pain: none - Related Data Previous Rx's Medication Instructions Recorded ARIPiprazole [Abilify] 10 mg PO DAILY #30 tablet 10/04/16 Aspirin Enteric Coated [Aspirin EC] 81 mg PO DAILY #30 tablet. 10/04/16 Atorvastatin [Lipitor] 40 mg PO HS #30 tablet 10/04/16 DULoxetine [Cymbalta] 60 mg PO BID #120 capsule. 10/04/16 Fluticasone Propionate Nasal 50 mcg NS BID #1 bottle 10/04/16 [Flonase] Gabapentin [Neurontin] 600 mg PO BID #60 tablet 10/04/16 Lisinopril [Zestril] 10 mg PO DAILY #30 tablet 10/04/16 Metoprolol XL (24 HR) Succ [Toprol 50 mg PO DAILY #30 tab.er.24h 10/04/16 Xl] Mirtazapine [Remeron] 15 mg PO HS #30 tablet 10/04/16 Oxycodone HCl/Acetaminophen 1 each PO Q4-6H PRN #18 tablet 10/04/16 [Percocet 7.5-325 mg Tablet] Tiotropium [place] [Spiriva 2 puff IH DAILY #1 mist.inhal 10/04/16 Respimat] Betamethasone Nancy 0.1% Crm 1 appl TP BID #45 gram 10/10/16 [Valisone 0.1%] Allergies Allergy/AdvReac Type Severity Reaction Status Date / Time morphine Allergy Hallucinati Verified 10/10/16 09:10 ng Penicillins Allergy Blister Verified 10/10/16 09:10 All systems ED: reviewed and negative except as stated. Constitutional: Denies: fever, chills, weakness, weight change Eyes: Denies: eye pain, eye discharge, vision change ENT ED: Denies: ear pain, throat pain, dental pain, hearing loss, epistaxis, congestion, dysphagia Cardiovascular: Reports: chest pain. Denies: palpitations, dyspnea on exertion , edema, syncope Respiratory: Denies: cough, dyspnea, wheezes, hemoptysis, stridor Gastrointestinal: Denies: abdominal pain, nausea, vomiting, diarrhea, constipation, hematemesis, melena, hematochezia Genitourinary: Denies: urgency, dysuria, frequency, hematuria Musculoskeletal: Denies: back pain, neck pain, arthralgia, myalgia Integumentary: Denies: rash, abrasion, lesions Neurological: Denies: headache, weakness, numbness, paresthesias, confusion, abnormal gait, vertigo Psychiatric: Denies: anxiety, depression, suicidal thoughts, homicidal thoughts , auditory hallucinations, visual hallucinations Endocrine: Denies: fatigue Hematological/Lymphatic: Denies: easy bleeding, easy bruising Allergic/Immunologic: Denies: facial swelling, urticaria Chest Pain PMH - Past Medical History Medical history: Reports: cirrhosis, CHF, COPD, coronary artery disease, GERD, hepatitis, hyperlipidemia, hypertension, liver disease, myocardial infarction Surgical history: Reports: coronary bypass (CABG), hip replacement, knee replacement Psychiatric history: Reports: no psych history - Social History Smoking Status: Former smoker Alcohol use: Reports: heavy Drug use: Reports: marijuana Physical Exam - General Limitations: no limitations General appearance: alert, in no apparent distress - Head Head exam: atraumatic, normocephalic, normal inspection - Eye Eye exam: Present: normal appearance, PERRL, EOMI - ENT ENT exam: normal exam, normal oropharynx, mucous membranes moist - Neck Neck exam: Present: normal inspection, full ROM, trachea midline - Chest Chest inspection: Present: normal inspection, symmetric chest wall rise - Respiratory Respiratory exam: Present: normal lung sounds bilaterally - Cardiovascular Cardiovascular exam: Present: regular rate, normal rhythm, normal heart sounds - Abdominal Exam Abdominal exam: Present: soft, Non-Tender. Absent: tenderness, distention, guarding, rebound, rigidity - Expanded Lower Extremity Exam Lower leg exam: Present: swelling, erythema Neurovascular/Tendon exam: Absent: motor deficit, sensory deficit, tendon deficit Gait: not tested/not observed - Back Exam Back exam: Present: normal inspection, full ROM. Absent: tenderness - Neurological Exam Neurological exam: Present: alert, oriented X3 - Psychiatric Psychiatric exam: Present: normal affect, normal mood - Skin Skin exam: Present: warm, dry, intact, normal color Course - Reevaluation(s) Reevaluation #1: 46-year-old multiple risk factors comes in complaining of chest pain. Initial EKG shows no acute change on the initial troponin is negative patient will be admitted for further evaluation and treatment Time: 10:47 - Consultations Consultation #1: Discussed with Dr. Menezes, admit. Time: 10:57 Vital Signs Temperature 98.2 F 10/24/16 09:31 Pulse Rate 103 10/24/16 09:31 Respiratory Rate 18 10/24/16 09:31 Blood Pressure 194/110 10/24/16 09:31 O2 Sat by Pulse Oximetry 95 10/24/16 09:31 Temperature 98.2 F 10/24/16 09:31 Pulse Rate 101 10/24/16 10:38 Respiratory Rate 18 10/24/16 10:38 Blood Pressure 129/101 10/24/16 10:38 O2 Sat by Pulse Oximetry 96 10/24/16 10:38 Oxygen Delivery Oxygen Delivery Nasal Cannula Chest Pain - Lab Data Lab results reviewed: Yes I reviewed the patient's lab results. Result diagrams: 10/24/16 09:43 10/24/16 09:43 Lab Results 10/24/16 10/24/16 10/24/16 Range/Units 09:43 09:43 09:43 WBC 5.9 (4.3-11.1) K/mcL RBC 4.55 (4.19-5.50) M/mcL Hgb 14.9 (12.9-16.9) g/dL Hct 43.9 (37.5-50.1) % MCV 96.5 (83.0-100.0) fL MCH 32.7 (28.0-33.3) pg MCHC 33.9 (31.6-35.5) g/dL RDW 14.0 (11.5-14.5) % Plt Count 103 L (140-400) K/mcL MPV 9.5 (9.4-12.4) fL Immature Gran % 0.2 (0-4) % Seg Neutrophils % 64.8 % Lymphocytes % 21.9 % Monocytes % 7.1 % Eosinophils % 4.6 % Basophils % 1.4 % Neutrophils # 3.8 (1.6-8.9) K/mcL Lymphocytes # 1.3 (0.6-4.6) K/mcL Monocytes # 0.4 (0.0-1.3) K/mcL Eosinophils # 0.3 (0.0-0.6) K/mcL Basophils # 0.1 (0.0-0.2) K/mcL Immature Plt Fraction 3.0 (1.1-6.1) % PT 13.6 H (9.4-12.1) Seconds INR 1.3 APTT 35.3 (26.0-36.0) Seconds Sodium 136 (136-145) mEq/L Potassium 3.5 (3.5-4.5) mEq/L Chloride 104 (98-109) mEq/L Carbon Dioxide 23 (19-29) mEq/L BUN 6 L (8-26) mg/dL Creatinine 0.71 L (0.72-1.25) mg/dL Est GFR ( Amer) > 60 (> 60) Est GFR (Non-Af Amer) > 60 (> 60) BUN/Creatinine Ratio 8 (6-26) Glucose 138 H (70-99) mg/dL Calculated Osmolality 282 (280-300) Calcium 8.7 (8.6-10.8) mg/dL Troponin I (0-0.03) ng/mL 10/24/16 Range/Units 09:43 WBC (4.3-11.1) K/mcL RBC (4.19-5.50) M/mcL Hgb (12.9-16.9) g/dL Hct (37.5-50.1) % MCV (83.0-100.0) fL MCH (28.0-33.3) pg MCHC (31.6-35.5) g/dL RDW (11.5-14.5) % Plt Count (140-400) K/mcL MPV (9.4-12.4) fL Immature Gran % (0-4) % Seg Neutrophils % % Lymphocytes % % Monocytes % % Eosinophils % % Basophils % % Neutrophils # (1.6-8.9) K/mcL Lymphocytes # (0.6-4.6) K/mcL Monocytes # (0.0-1.3) K/mcL Eosinophils # (0.0-0.6) K/mcL Basophils # (0.0-0.2) K/mcL Immature Plt Fraction (1.1-6.1) % PT (9.4-12.1) Seconds INR APTT (26.0-36.0) Seconds Sodium (136-145) mEq/L Potassium (3.5-4.5) mEq/L Chloride (98-109) mEq/L Carbon Dioxide (19-29) mEq/L BUN (8-26) mg/dL Creatinine (0.72-1.25) mg/dL Est GFR ( Amer) (> 60) Est GFR (Non-Af Amer) (> 60) BUN/Creatinine Ratio (6-26) Glucose (70-99) mg/dL Calculated Osmolality (280-300) Calcium (8.6-10.8) mg/dL Troponin I 0.00 (0-0.03) ng/mL - Radiology Data Radiology results reviewed: Yes I reviewed the patient's radiology results. Chest X-Ray 10/24/16 09:37 IMPRESSION: No acute cardiopulmonary process. D/ /24/2016 10:21:20 Gee Bolton MD / Jazmin Schilling Interpreting Provider: Gee Bolton MD Venous Doppler was negative for DVT left lower extremity - EKG Data EKG attestation: Yes I reviewed and interpreted this EKG. EKG shows normal: sinus rhythm Rate: normal Rhythm: NSR QRS morphology: poor R-wave progression When compared to previous EKG there are: no significant changes (09/26/2016) Interpretation: no acute changes Heart Score - Score History: Moderately Suspicious EKG: Non Specific repolarisation Disturbance Age: 45-65 Risk Factors: Equal/Greater than 3 risk factor or history of atherosclerotic disease Troponin: Less than normal limit HEART Score Total: 5
[2016-10-24 10:02] LABS: Activated Partial Thrombo Time 35.3 Seconds (26.0-36.0); INR 1.3; Prothrombin Time 13.6 Seconds (9.4-12.1)
[2016-10-24 10:11] LABS: Basophils # 0.1 K/mcL (0.0-0.2); Basophils % 1.4 %; Eosinophils # 0.3 K/mcL (0.0-0.6); Eosinophils % 4.6 %; Hematocrit 43.9 % (37.5-50.1); Hemoglobin 14.9 g/dL (12.9-16.9); Immature Granulocytes % 0.2 % (0-4); Lymphocytes # 1.3 K/mcL (0.6-4.6); Lymphocytes % 21.9 %; Mean Corpuscular HGB Conc 33.9 g/dL (31.6-35.5); Mean Corpuscular Hemoglobin 32.7 pg (28.0-33.3); Mean Corpuscular Volume 96.5 fL (83.0-100.0); Mean Platelet Volume 9.5 fL (9.4-12.4); Monocytes # 0.4 K/mcL (0.0-1.3); Monocytes % 7.1 %; Neutrophils # 3.8 K/mcL (1.6-8.9); Platelet Count 103 K/mcL (140-400); Red Blood Count 4.55 M/mcL (4.19-5.50); Segmented Neutrophils % 64.8 %
[2016-10-24 10:40] LABS: BUN/Creatinine Ratio 8 (6-26); Blood Urea Nitrogen 6 mg/dL (8-26); Calcium 8.7 mg/dL (8.6-10.8); Carbon Dioxide 23 mEq/L (19-29); Chloride 104 mEq/L (98-109); Glucose 138 mg/dL (70-99); Osmolality,Calculated 282 (280-300); Potassium 3.5 mEq/L (3.5-4.5); Sodium 136 mEq/L (136-145); eGFR For African Americans > 60 (> 60); eGFR For Non-African Americans > 60 (> 60)
[2016-10-24] MEDS ORDERED: Naloxone 0.4 MG/ML INJ IVP PRN (11:05)
[2016-10-24] MEDS ORDERED: *HR* Morphine 2 MG/ML SYRINGE IVP PRN (11:05)
--- NOTE | 2016-10-24 13:16 | Internal Med History&Physical ---
Date of Encounter: 10/24/16 Time of Encounter: 13:14 Assessment and Plan (1) CAD (coronary artery disease) Current visit: No Status: Chronic had quadruple bypass surgery 3 years ago. Does not have a family doctor and does not follow with cardiology. will continue asa, bb and statin Qualifiers: Coronary Disease-Associated Artery/Lesion type: barrow artery [place] vs. transplanted heart: barrow heart Associated angina: angina presence unspecified Qualified Code(s): I25.10 - Atherosclerotic heart disease of barrow coronary artery without angina pectoris (2) Chest pain Current visit: No Status: Chronic will trend trop, initial trop is negative. EKG does not show any ischemic changes has significant cardiac history with quadruple bypass recently had stress testing which was negative for any ischemia. ECHO normal with normal LVEF of 55% no need for repeat stress testing now. consider cardiology consult if trop is positive or persistent chest pain, chest pain may be from the ventral hernia thats causing the discomfort. Qualifiers: Chest pain type: precordial pain Qualified Code(s): R07.2 - Precordial pain (3) History of COPD Current visit: No Status: Chronic not on home o2. takes inhalers, not in exacerbation. continue home meds (4) Cirrhosis Current visit: No Status: Chronic stable. has not seen a GI doctor recently will need OP GI referral for HCC surveillance, has h/p hep C will send AFP Qualifiers: Hepatic cirrhosis type: alcoholic cirrhosis Ascites presence: without ascites Qualified Code(s): K70.30 - Alcoholic cirrhosis of liver without ascites (5) Ventral hernia Current visit: Yes Status: Acute has epigastric ventral hernia post bypass surgery and has had it for almost 3 yrs now. he says it gets very uncomfortable when he sleeps at night, but no pain or signs of bowel obstruction at this time/ consider IP/OP surgical referral. Qualifiers: Obstruction and gangrene presence: without obstruction or gangrene Qualified Code(s): K43.9 - Ventral hernia without obstruction or gangrene (6) Left leg cellulitis Current visit: Yes Status: Acute has a rash on left foot extending to his leg, swollen and c/p pain no open sores, will cover for cellulitis for now with unasyn. doppler is negative for DVT, to de escalate antibiotics once able. Internal Medicine - H&P: HPI Chief complaint: chest pain Admitted From: Home Plans for Post Hospital Care: Home History of present illness: Mr. Castro is a 46 year old male with a history of previous coronary artery disease with bypass surgery 3 yrs ago comes in complaining of chest pain since yesterday. States the pain feels similar to what he had prior to his previous [place]. He describes midsternal chest pain, nonradiating and persistent since yesterday. Denies any nausea vomiting, shortness of breath or diaphoresis. He says he has not seen a doctor for a long time, has run out of his nitroglycerin pill. States the patient just moved here from [place] and does not have a family doctor. Chest pain is subsided somewhat after taking nitroglycerin at ED. He also has a ventral hernia which he got after the bypass surgery, he wants to be treated for that as well as he thinks the pain might be coming from that as well and it gets very uncomfortable at night. He does not smoke however he drinks every day. Past Med Surg Social Fam HX - Past Medical History Medical history: cirrhosis, CHF, COPD, coronary artery disease, GERD, hepatitis , hyperlipidemia, hypertension, liver disease, myocardial infarction Psychiatric history: anxiety, depression - Past Surgical History Surgical History: coronary bypass (CABG), hip replacement, knee replacement - Social History Smoking Status: Former smoker Smokeless Tobacco Status: No Alcohol use: occasionally, heavy Drug use: marijuana - Family History Mother Adopted: No Family Member Ethnicity: Non- Living Status: Hx Family Cardiac Disorders: No Hx Family Respiratory Disorders: No Hx Family Cancer: No Hx Family GI Disorders: No Hx Family Endocrine Disorder: No Hx Family Neuromuscular Disorders: No Hx Family Neurologic Disorders: No Hx Family HEENT Disorders: No Hx Family Autoimmune Disorders: No Father Adopted: No Family Member Ethnicity: Non- Living Status: Hx Family Cancer: Yes Brother Adopted: Yes (from father) Family Member Ethnicity: Non- Living Status: Hx Family Cardiac Disorders: Yes Hx Family Respiratory Disorders: Yes Hx Family Cancer: Yes (mom at 48, brother at 37) Hx Family GI Disorders: Yes Hx Family Endocrine Disorder: Yes Hx Family Neuromuscular Disorders: Yes (mother, brother) Hx Family Neurologic Disorders: No Hx Family HEENT Disorders: No Hx Family Autoimmune Disorders: No Sister Adopted: [place]: Kathie Castro Age: 43 Family Member Ethnicity: Non- Living Status: Still Living Hx Family Cardiac Disorders: Yes Hx Family Respiratory Disorders: No Hx Family Cancer: Yes (Cervical) Hx Family GI Disorders: (GERD) Hx Family Genitourinary Disorders: No Hx Family Endocrine Disorder: No Hx Family Musculoskeletal Disorders: No Hx Family Neuromuscular Disorders: No Hx Family Neurologic Disorders: No Hx Family HEENT Disorders: No Hx Family Autoimmune Disorders: No Hx Family Reproductive Disorders: Yes (Cervical Cancer) Hx Family Psychosocial Disorders: Yes Hx Family Medical Disorders: No Internal Medicine - H&P: Meds Aspirin Enteric Coated [Aspirin EC] 81 mg PO DAILY #30 tablet.dr 10/04/16 [Rx] Atorvastatin [Lipitor] 40 mg PO HS #30 tablet 10/04/16 [Rx] Gabapentin [Neurontin] 600 mg PO BID #60 tablet 10/04/16 [Rx] Lisinopril [Zestril] 10 mg PO DAILY #30 tablet 10/04/16 [Rx] Metoprolol XL (24 HR) Succ [Toprol Xl] 50 mg PO DAILY #30 tab.er.24h 10/04/16 [ Rx] Oxycodone HCl/Acetaminophen [Percocet 7.5-325 mg Tablet] 1 each PO Q4-6H PRN # 18 tablet 10/04/16 [Rx] Tiotropium [place] [Spiriva Respimat] 2 puff IH DAILY #1 mist.inhal 10/04/16 [Rx ] Allergies morphine Allergy (Verified 10/24/16 11:36) Hallucinating Penicillins Allergy (Verified 10/24/16 11:36) Blister All Systems PM: A 10-system review of systems was performed and is negative for pertinent findings except as documented above in the HPI. - Constitutional Constitutional: no chills, no fever(s), no night sweats - EENT Eyes: no change in vision, no discharge, no pain, no photophobia Ears: no ear discharge, no ear pain, no tinnitus Nose, mouth and throat: no dysphagia, no nasal discharge, no neck pain, no sore throat - Cardiovascular Cardiovascular ROS IM: chest pain, no diaphoresis, no dyspnea, no lightheadedness, no palpitations, no syncope - Respiratory Respiratory: no cough, no dyspnea, no wheezing, no excessive phlegm production - Gastrointestinal Gastrointestinal: no abdominal pain, no diarrhea, no hematemesis, no hematochezia, no melena, no nausea, no vomiting - Musculoskeletal Musculoskeletal ROS IM: no numbness, no tingling - Integumentary Integumentary IM: no rash, no unusual bruising - Constitutional Vitals: Temp Pulse Resp BP Pulse Ox 98.2 F 98 18 135/96 96 10/24/16 09:31 10/24/16 11:35 10/24/16 11:40 10/24/16 11:40 10/24/16 11:35 General appearance: Present: A&O X 3, no acute distress Exam: neck- supple chest- b/l clear, no added sounds cvs-s1 and s2, no m/r/g abd-soft, non tender,bs are present ext- no edema neuro- no focal defecits. Internal Med - H&P Results - Labs CBC & Chem 7: 10/24/16 09:43 10/24/16 09:43
[2016-10-24] MEDS ORDERED: Albuterol 2.5 MG/3 ML NEBULIZER IH PRN (13:38)
[2016-10-24] MEDS: Metoprolol XL (24 HR) Succ 50 MG TAB.ER.24H PO SCH (13:46)
[2016-10-24] MEDS: *HR* HYDROcodone/Acet 7.5/325 mg TABLET PO PRN ×2 (13:46→21:27)
--- NOTE | 2016-10-24 16:51 | Electrocardiograph Report ---
[address] [place], [place] [address] Test Date: 2016-10-24 Pat Name: Isis Castro Department: 105 Room: 3B Gender: M It Intern: AM : 1970 Requested By: Osmany Montes Order Number: [id number] Reading MD: Marybel Olivas Measurements Intervals [place] Rate: 99 P: -5 OK: 139 QRS: 59 QRSD: 109 T: 85 QT: 351 QTc: 408 Interpretive Statements SINUS RHYTHM POOR R WAVE PROGRESSION ACROSS PRECORDIAL LEADS POSSIBLE INFERIOR MYOCARDIAL INFARCTION [35 ms Q WAVE IN II/aVF], OF INDETERMINATE AGE Electronically Signed On 10-24-2016 16:49:38 EDT by Marybel Olivas
[2016-10-24] MEDS: Gabapentin 300 MG CAPSULE PO SCH (21:28)
[2016-10-24] MEDS: Sulfamethoxazole/Trimeth DS 1 EACH TABLET PO SCH (21:28)
[2016-10-25] MEDS ORDERED: Ampicillin/Sulbactam 1,500 MG in 0.9 % Sodium Chloride Mini Bag 100 ML IVPB SCH
[2016-10-25] MEDS: *HR* HYDROcodone/Acet 7.5/325 mg TABLET PO PRN ×2 (03:34→09:34)
[2016-10-25 05:14] LABS: Hemoglobin 13.6 g/dL (12.9-16.9)
[2016-10-25 05:16] LABS: Basophils # 0.1 K/mcL (0.0-0.2); Eosinophils # 0.3 K/mcL (0.0-0.6); Eosinophils % 6.2 %; Hematocrit 40.3 % (37.5-50.1); Immature Granulocytes % 0.4 % (0-4); Immature Platelets 5.2 % (1.1-6.1); Lymphocytes # 1.2 K/mcL (0.6-4.6); Lymphocytes % 24.6 %; Mean Corpuscular HGB Conc 33.7 g/dL (31.6-35.5); Mean Corpuscular Hemoglobin 33.3 pg (28.0-33.3); Mean Corpuscular Volume 98.8 fL (83.0-100.0); Mean Platelet Volume 9.8 fL (9.4-12.4); Monocytes # 0.5 K/mcL (0.0-1.3); Monocytes % 10.4 %; Neutrophils # 2.9 K/mcL (1.6-8.9); Platelet Count 90 K/mcL (140-400); Red Blood Count 4.08 M/mcL (4.19-5.50); Red Cell Distribution Width 14.2 % (11.5-14.5); Segmented Neutrophils % 57.4 %
[2016-10-25 05:31] LABS: BUN/Creatinine Ratio 10 (6-26); Blood Urea Nitrogen 8 mg/dL (8-26); Carbon Dioxide 30 mEq/L (19-29); Chloride 101 mEq/L (98-109); Chol/HDL Ratio 5.4 (0-4.9); Cholesterol 177 mg/dL (< 200); Glucose 123 mg/dL (70-99); HDL Cholesterol 33 mg/dL (40-59); LDL Cholesterol,Calculated 119 mg/dL (0-99); Osmolality,Calculated 282 (280-300); Potassium 3.7 mEq/L (3.5-4.5); Sodium 136 mEq/L (136-145); Triglycerides 123 mg/dL (< 150); eGFR For African Americans > 60 (> 60); eGFR For Non-African Americans > 60 (> 60)
[2016-10-25 08:10] VITALS: BP 131/88
[2016-10-25] MEDS ORDERED: (Tiotropium Bromide [Spiriva Respimat] 2 PUFF) IH SCH (09:00)
[2016-10-25] MEDS ORDERED: ARIPiprazole 10 MG TABLET PO SCH (09:00)
[2016-10-25] MEDS ORDERED: Aspirin Enteric Coated 81 MG Tablet PO SCH (09:00)
[2016-10-25] MEDS: Gabapentin 300 MG CAPSULE PO SCH (09:04)
[2016-10-25] MEDS: Sulfamethoxazole/Trimeth DS 1 EACH TABLET PO SCH (09:04)
[2016-10-25] MEDS: Metoprolol XL (24 HR) Succ 50 MG TAB.ER.24H PO SCH (09:04)
--- NOTE | 2016-10-25 09:07 | Discharge Summary ---
Date of Encounter: 10/25/16 Time of Encounter: 08:45 - Discharge Diagnosis (1) Chest pain Priority: Secondary Status: Chronic Comments: Patient with chronic chest pain. He denies change in character or any changes at all to his pain. He states it is "same shit different day." Recommend close outpatient follow-up (2) Left leg cellulitis Priority: Primary Status: Acute Comments: Mild, no signs of streaking. Mild erythema and mild edema noted to left lower extremity. We will send on Bactrim and have him follow up outpatient. Afebrile. No leukocytosis. Could also potentially be dependent edema from his chronic left knee pain status post several surgeries. Follow up outpatient with orthopedics as well. (3) CAD (coronary artery disease) Priority: Secondary Status: Chronic Qualifiers: Coronary Disease-Associated Artery/Lesion type: [place] artery [place] vs. transplanted heart: [place] heart Associated angina: angina presence unspecified Qualified Code(s): I25.10 - Atherosclerotic heart disease of [place] coronary artery without angina pectoris (4) History of COPD Priority: Secondary Status: Chronic Comments: no acute exacerbation (5) Marijuana abuse Priority: Secondary Status: Chronic (6) Cirrhosis Priority: Secondary Status: Chronic Comments: Stable, no jaundice, able to tolerate a regular diet Qualifiers: Hepatic cirrhosis type: alcoholic cirrhosis Ascites presence: without ascites Qualified Code(s): K70.30 - Alcoholic cirrhosis of liver without ascites (7) Hypertension Priority: Secondary Status: Chronic Comments: Controlled with home meds, follow-up outpatient Qualifiers: Hypertension type: essential hypertension Qualified Code(s): I10 - Essential (primary) hypertension (8) Alcohol abuse Priority: Secondary Status: Chronic Comments: No signs of intoxication or withdrawal during this admission. He denied any suicidal or homicidal ideations (9) Chronic pain Priority: Secondary Status: Chronic Comments: patient does not have any current pain medication prescriptions in [place]. Unclear whether or not his provider from [place] is still prescribing, follow-up outpatient for chronic pain management. Qualifiers: Chronic pain type: other chronic pain Qualified Code(s): G89.29 - Other chronic pain (10) DVT prophylaxis Priority: Primary Status: Acute Comments: Observation patient. Up ad luis. (11) Ventral hernia Priority: Secondary Status: Chronic Qualifiers: Obstruction and gangrene presence: without obstruction or gangrene Qualified Code(s): K43.9 - Ventral hernia without obstruction or gangrene - Discharge Medications Prescriptions: Sulfamethoxazole/Trimeth DS [Bactrim Ds] 1 each PO BID #20 tablet Home Medications: Aspirin Enteric Coated [Aspirin EC] 81 mg PO DAILY #30 tablet.dr 10/04/16 [Rx] Atorvastatin [Lipitor] 40 mg PO HS #30 tablet 10/04/16 [Rx] Gabapentin [Neurontin] 600 mg PO BID #60 tablet 10/04/16 [Rx] Lisinopril [Zestril] 10 mg PO DAILY #30 tablet 10/04/16 [Rx] Metoprolol XL (24 HR) Succ [Toprol Xl] 50 mg PO DAILY #30 tab.er.24h 10/04/16 [ Rx] Oxycodone HCl/Acetaminophen [Percocet 7.5-325 mg Tablet] 1 each PO Q4-6H PRN # 18 tablet 10/04/16 [Rx] Tiotropium [place] [Spiriva Respimat] 2 puff IH DAILY #1 mist.inhal 10/04/16 [Rx ] Sulfamethoxazole/Trimeth DS [Bactrim Ds] 1 each PO BID #20 tablet 10/25/16 [Rx] Allergies/Adverse Reactions: Allergies morphine Allergy (Verified 10/24/16 11:36) Hallucinating Penicillins Allergy (Verified 10/24/16 11:36) Blister Date of admission: 10/24/16 11:23 Primary care physician: PCP NO Consults: 10/24/16 17:38 Consult to [facility] [CONS] Routine Reason for SW Consult: discharge needs Discharging clinician: Patricia Lawrence Anticipated date of discharge: 10/25/16 (getting him a ride to his new PCP for appt at 1015) - Patient Status Disposition: Home, Self-Care Condition: Fair Functional capacity at discharge: independent ambulation Overall status at discharge: patient is back to baseline - Discharge Instructions Follow Up With: Savannah Vargas MD [Non-Partnered Physician] - Additional Instructions: Follow-up with your primary care provider at 10:15, call [facility] for another appointment - Diet and Activity Activity: increase activity as tolerated Diet: low fat, low cholesterol, low salt diet Hospital course: Mr. Castro is a 46 year old male with past medical history of CAD status post CABG 3 years ago, cirrhosis, COPD, GERD, hepatitis, hyperlipidemia, hypertension , knee replacement, former tobacco abuse, marijuana abuse, heavy alcohol abuse. Patient presented to the emergency department with a chief complaint of chest pain. He described it as mid sternally located, without radiation, and persistent 2 days. He denied nausea, vomiting, shortness of breath, or diaphoresis. He states he had not seen a doctor in quite some time and had run out of his nitroglycerin. He states he just moved here from [place] and does not have a family doctor. Of note, patient was seen at the beginning of this month with the exact same chief complaint in the exact same story regarding recent move and no primary care provider. At that time, he had an unremarkable stress test and an echocardiogram. At that time, he was also suicidal and was cleared medically and then transferred to inpatient psychiatric care where it appears as if he stayed for 5 days. He was discharged on 10/04/16 and had follow-up appointments with good Oliveira on 10/24 which he missed because he came here yesterday. He has an appointment with his new primary care provider today at 10:15 and as none of his symptoms are new, he will be discharged this morning and we will secure a ride for him so that he can make this appointment. He was instructed to follow-up with his new primary care provider regarding his chronic pain management. Once again, his OARRS report came out clean however he states that his primary care provider in [place] is still prescribing narcotics for him, unable to verify. He wants his ventral hernia status post CABG to be fixed however he has had this same pain for 3 years, follow-up outpatient. He also wants his chronic knee pain to be fixed, follow-up outpatient. No acute symptoms. Troponins negative 3. No ischemic changes on ECG. No indication to repeat stress test or echo. Low suspicion for ACS, we will discharge him so he can see his primary care provider regarding his chronic chest pain and his chronic left knee pain. He did have mild erythema and edema to his left lower extremity , he was sent on Bactrim for possible early cellulitis. He was discharged home in stable condition with close outpatient follow-up recommended later today with his primary care provider. ITS Impressions Chest X-Ray 10/24/16 09:37 IMPRESSION: No acute cardiopulmonary process. D/ / 10/24/2016 10:21:20 Gee Bolton MD / Jazmin Schilling Interpreting Provider: Gee Bolton MD - Time Spent with Patient Total time spent providing and/or coordinating discharge services: - Constitutional Vitals: Temp Pulse Resp BP Pulse Ox 97.4 F L 75 20 131/88 95 10/25/16 08:09 10/25/16 08:09 10/25/16 08:09 10/25/16 08:09 10/25/16 08:09 General appearance: Present: A&O X 3, pleasant, no acute distress, obese, answers questions appropriately - Head Head exam: Present: atraumatic, normocephalic - Eye Eye exam: Present: PERRL, conjuntiva pink, sclera anicteric Pupils: Present: PERRL - Neck Neck exam general surgery: Present: supple, trachea midline. Absent: lymphadenopathy - Respiratory Respiratory exam: Present: decreased breath sounds. Absent: accessory muscle use, rales, respiratory distress, rhonchi, wheezes - Cardiovascular Cardiovascular exam: Present: RRR, +S1, +S2. Absent: diastolic murmur, gallop, rubs, systolic murmur - GI/Abdominal GI/Abdominal exam: Present: normal bowel sounds, soft, tenderness (Epigastric), no peritoneal signs. Absent: distended - Extremities Exam Extremities exam: Present: warm, radial pulses palpable and symetrical. Absent : calf tenderness, cyanotic, pedal edema - Expanded Lower Extremities Exam Lower Leg exam: Present: erythema, swelling Ankle exam: Present: erythema, swelling Neuro vascular tendon exam: Present: no vascular compromise - Neurological Exam Neurological exam: Present: alert, CN II-XII intact, oriented X3, no focal deficits, strengths equal and symetr throughout. Absent: pronater drift, facial droop, speech deficit - Skin Skin exam: Present: dry, intact, normal color, warm
--- NOTE | 2016-10-25 13:34 | Venous Imaging Report ---
LE Venous Duplex Patient Name:Isis Castro Order Number:[id number] Procedure Date:10/24/2016 Date:1970Age:46 yrs Gender:Male Location:[facility] ED Room #: ER 4 Production Stage Manager:Elen Duke RDCS, [employer] Referring MD:Ethan Montes MD customer service trainer:None Reading MD:Aurelio Lopez MD Primary Indications:Swelling Secondary Indications: Risk Factors Yes/No Anticoagulants No Trauma to Veins Yes Recent Surgery No Impressions: Left lower extremity: normal superficial and deep exam. Recommendations: After imaging the patient returned to their room. Test completed on 10/24/2016 at 10:10:44 am. Critical findings reported to Jyoti by phone at 11:13:58 am on 10/24/2016 by Elen Duke RDCS, RVT. Lower Extremity Venous Duplex Side Vein Compress Spontaneous Flow Augment Diameter (cm) Depth (cm) Left Distal Iliac Normal Yes Phasic Yes Left Common Femoral Normal Yes Phasic Yes Left Superficial Femoral Normal Yes Phasic Yes Left Popliteal Normal Yes Phasic Yes Left Posterior Tibial Normal Yes Phasic Yes Left Peroneal Normal Yes Phasic Yes Left Great [place]aphen[place] Normal Yes Phasic Yes Left Lesser Saphenous Normal Yes Phasic Yes Right Common Femoral Normal Yes Phasic Yes Updated by Aurelio Lopez MD on 10/25/2016 1:27:03 PM electronically signed on 10/25/2016 1:27:21 PM with status of Final
== END 2016-10-25 09:56 | disposition home or self-care (01) ==
LOC: EMEROO 09:28 → 3BNU 09:28
PROVIDERS: ADMIT Internal Medicine Endocrinology, Diabetes & Metabolism; ATTEND Nurse Practitioner Family

== ENCOUNTER 2016-11-04 04:12 | Inpatient (IN) ==
[2016-11-04] MEDS ORDERED: Aspirin 81 MG TAB.CHEW PO ONE (04:21)
[2016-11-04] MEDS ORDERED: 0.9 % Sodium Chloride 500 ML IVC ONE (04:21)
--- NOTE | 2016-11-04 04:28 | Emergency Department Note ---
Disposition Clinical Impression: Suicidal ideation CAD (coronary artery disease) Qualifiers: Coronary Disease-Associated Artery/Lesion type: unspecified vessel or lesion type [place] vs. transplanted heart: lummi heart Associated angina: with unspecified angina Qualified Code(s): I25.119 - Atherosclerotic heart disease of lummi coronary artery with unspecified angina pectoris Chest pain Qualifiers: Chest pain type: chest pain on breathing Qualified Code(s): R07.1 - Chest pain on breathing Chest wall injury Qualifiers: Encounter type: initial encounter Qualified Code(s): S29.9XXA - Unspecified injury of thorax, initial encounter Disposition: Admitted As Inpatient Condition: Fair Time of Disposition: 05:38 Chest Pain HPI - General Chief Complaint: ED Chest Pain Stated Complaint: chest pain Time Seen by Provider: 11/04/16 04:20 Source: patient, EMS Mode of arrival: EMS Limitations: other Vital Signs Reviewed: Yes Nursing Notes Reviewed: Yes - History of Present Illness HPI Narrative: Patient presents emergency room approximately 2 days worth of chest pain. Located left-sided chest and left arm. Similar to previous chest pain symptoms. Did not respond to nitroglycerin tonight. Patient has been drinking today and describes a trauma 2 days ago. Onset (ago): day(s) Duration: constant Onset: during rest Pain Location: left chest Severity: moderate Quality: sharp Pain Radiation: none Improves with: nothing Worsens with: palpation, movement Context: trauma/injury Associated symptoms: Reports: palpitations Treatments prior to arrival chest pain: aspirin, nitroglycerin, oxygen - Related Data Home Medications Medication Instructions Recorded Confirmed Gabapentin [Neurontin] 900 mg PO BID 11/04/16 11/04/16 Previous Rx's Medication Instructions Recorded Aspirin Enteric Coated [Aspirin EC] 81 mg PO DAILY #30 tablet.dr 10/04/16 Atorvastatin [Lipitor] 40 mg PO HS #30 tablet 10/04/16 Lisinopril [Zestril] 10 mg PO DAILY #30 tablet 10/04/16 Metoprolol XL (24 HR) Succ [Toprol 50 mg PO DAILY #30 tab.er.24h 10/04/16 Xl] Oxycodone HCl/Acetaminophen 1 each PO Q4-6H PRN #18 tablet 10/04/16 [Percocet 7.5-325 mg Tablet] Tiotropium [place] [Spiriva 2 puff IH DAILY #1 mist.inhal 10/04/16 Respimat] Allergies Allergy/AdvReac Type Severity Reaction Status Date / Time morphine Allergy Hallucinati Verified 10/24/16 11:36 ng Penicillins Allergy Blister Verified 10/24/16 11:36 All systems ED: reviewed and negative except as stated. Constitutional: Denies: fever, chills Cardiovascular: Reports: chest pain, palpitations. Denies: dyspnea on exertion , orthopnea, edema Respiratory: Denies: cough, dyspnea, wheezes Gastrointestinal: Denies: nausea, vomiting, diarrhea Genitourinary: Denies: dysuria Musculoskeletal: Denies: neck pain Neurological: Denies: headache Psychiatric: Reports: depression, suicidal thoughts Chest Pain PMH - Past Medical History Medical history: Reports: cirrhosis, CHF, COPD, coronary artery disease, GERD, hepatitis, hyperlipidemia, hypertension, liver disease, myocardial infarction Surgical history: Reports: coronary bypass (CABG), hip replacement, knee replacement Psychiatric history: Reports: anxiety, depression - Social History Smoking Status: Former smoker Alcohol use: Reports: occasionally, heavy Drug use: Reports: marijuana Physical Exam - General Limitations: other (Patient is currently intoxicated) General appearance: appears intoxicated - Head Head exam: atraumatic, normocephalic, normal inspection - Eye Eye exam: Present: normal appearance, PERRL, EOMI - ENT ENT exam: normal exam, normal oropharynx, mucous membranes moist - Chest Chest inspection: Present: normal inspection, symmetric chest wall rise, tenderness (Tenderness noted over the left anterior lateral chest wall no bruising or deformity noted. Midline incisional hernia noted over the chest where the previous sternotomy scar is) - Respiratory Respiratory exam: Present: normal lung sounds bilaterally - Cardiovascular Cardiovascular exam: Present: regular rate, normal rhythm, normal heart sounds - Abdominal Exam Abdominal exam: Present: soft, Non-Tender, normal bowel sounds. Absent: distention, guarding, rebound, rigidity - Extremities Exam Extremities exam: Present: normal inspection - Back Exam Back exam: Present: normal inspection - Neurological Exam Neurological exam: Present: alert - Skin Skin exam: Present: warm, dry, intact, normal color Course Course Narrative: Patient seen and examined the time of arrival by EMS. Patient presents emergency room today with complaint of chest pain. Symptoms present for 2 days. Patient has previous cardiac history including 4 vessel bypass approximately 2 years ago. He is in no complications since then. Patient is visibly intoxicated with alcohol at this time. He discloses he uses marijuana daily as well as drinks approximately 1/2 L of alcohol daily secondary to poorly controlled pain. Patient currently is denying nausea vomiting diarrhea fevers or chills headache or vision change. He denies any shortness of breath. His main complaint is chest pain is present for greater than 24 hours. He took 2 nitroglycerin without relief at home. Physical exam is otherwise benign except for a midline sternotomy scar with incisional line hernia. He has reproducible chest wall discomfort and left-sided chest. No gross deformity or trauma noted. Patient did fall yesterday and injured the left side of his body in the fall. There were no gross abnormalities no peritoneal symptoms no guarding or rigidity. Patient was all 4 extremities. His Bilateral lower extremity edema and +2 out to the knee. He has no acute signs of congestive heart failure. Patient is concerning for poorly controlled medical issues including cardiac related issues pulmonary related issues at this time. Chest x -ray EKG labs ordered including troponin at this point. Disposition pending his treatment course. During the conversation with the nursing staff patient did disclose that he is tired of living secondary to dealing with his chronic pain and other medical issues. Could be secondary to intoxication but will treated as such. Medical clearance to be completed for psychiatric evaluation at this time. Disposition pending this treatment course. Given here as well as nitroglycerin trial to be started. - Reevaluation(s) Reevaluation #1: Patient is a blood alcohol of 336. Symptoms appear to be secondary to chronic pain related issues after discussion at the bedside. He is only asking for pain medication at this time. He says that he has pain in his left leg is so severe she may just want stand his life. Patient is having intermittent chest discomfort. He is given a nitroglycerin trial here with some indeterminant relief of his symptoms at this time. Pain medication will be given in small aliquots as needed secondary to his symptom presentation. Concern is noted that the intoxication is driving his suicidal ideation at this point. Troponin is 0.00. Symptoms of present for 48 hours and if this were cardiac related ischemia or damage patient would be having an elevated troponin at this point. Disposition will be observation in the emergency room until he can be evaluated by our psychiatric team in the hospital. Time: 05:12 Reevaluation #2: Patient discussed with the hospitalist. Detailed review the presentation symptoms medical intervention were reviewed. Patient is a complete resolution of his chest discomfort with the nitroglycerin trial here in the emergency room. His only complaint this time is left hip pain. His chronic issue. Concern was given narcotic medications that a shunt is currently intoxicated and does have concern for suicidal ideation. Patient did also fall and has left -sided chest wall pain. This could be consistent with fall and injury considering he does have what appears to be atelectasis or possible pneumonia on chest x-ray. I will not treat with antibiotics at this time will inform the hospital so this course of care so they understand this and have the ability to treat as needed. Patient otherwise is resting comfortably in the bed at this time. Hospitalist was paged and informed of the treatment course. No other recommendations or concerns at this time. Patient will be admitted for psychiatric evaluation secondary to the alcoholism and cardiac evaluation. Patient has multiple risk factors and make him concerning for cardiac related disease source of symptoms as well as the fall. No further workup or evaluation at this point. Patient is clinically stable. We will continue to monitor him in the emergency room to admission process is completed Time: 05:36 Chest Pain - MDM Narrative Medical decision making narrative: Chest pain, alcohol intoxication, alcohol abuse, suicidal ideation, chest wall injury, left lower lobe atelectasis - Medical Records Medical records reviewed: Yes I reviewed the patient's medical records. - Lab Data Lab results reviewed: Yes I reviewed the patient's lab results. Result diagrams: 11/04/16 04:26 11/04/16 04:26 - Radiology Data Radiology results reviewed: Yes I reviewed the patient's radiology results. Chest x-ray shows no acute pulmonary infiltrate. Possible atelectasis or developing pneumonia in the left lower quadrant along. - EKG Data EKG attestation: Yes I reviewed and interpreted this EKG. EKG shows normal: sinus rhythm, axis, intervals, QRS complexes, ST-T waves Rate: normal Rhythm: NSR Tuttle/QRS: normal When compared to previous EKG there are: no significant changes Interpretation: no acute changes, unchanged when compared to prior tracing (date ) (Compared EKG performed on 10/24/16. Morphology is identical) Heart Score - Score History: Slightly Suspicious EKG: Non Specific repolarisation Disturbance Age: 45-65 Risk Factors: Equal/Greater than 3 risk factor or history of atherosclerotic disease Troponin: Less than normal limit HEART Score Total: 4 Attestation Statement - Attestation Attestation: I, Jude Shearer MD, personally evaluated this patient and discussed their management with the resident physician. I reviewed the resident's note and agree with the documented findings, medical decision making, and plan of care. 46-year-old male presents to the emergency department with a complaint of left- sided chest pain off and on for the past 2 days. The pain radiates to the left shoulder. Patient does have a cardiac history and has had quadruple bypass. He states this feels similar to his normal angina pain. Patient appears intoxicated. He apparently also expressed some suicidal ideation stating that he did not really want to live anymore because he has chronic pain. He also complains of pain in the left leg. On examination patient is a well-developed obese male in no acute distress. He is alert and oriented 3. There is no cyanosis or diaphoresis. He does appear intoxicated with an odor of alcohol on his breath. Chest is nontender to palpation. Breath sounds are clear and equal bilaterally. Heart regular rate and rhythm. Abdomen is soft and nontender with normal bowel sounds. EKG shows no acute changes. Labs reviewed. Troponin normal. Alcohol 336. Chest x-ray shows some left basilar atelectasis versus pneumonia. The hospitalist, Dr. Rojas, was consulted and accepted admission of the patient.
[2016-11-04 04:37] LABS: Basophils # 0.2 K/mcL (0.0-0.2); Basophils % 1.6 %; Eosinophils # 0.7 K/mcL (0.0-0.6); Eosinophils % 5.4 %; Hemoglobin 16.1 g/dL (12.9-16.9); Immature Granulocytes % 0.3 % (0-4); Lymphocytes # 4.4 K/mcL (0.6-4.6); Lymphocytes % 36.1 %; Mean Corpuscular HGB Conc 34.3 g/dL (31.6-35.5); Mean Corpuscular Hemoglobin 33.2 pg (28.0-33.3); Mean Corpuscular Volume 96.9 fL (83.0-100.0); Mean Platelet Volume 9.3 fL (9.4-12.4); Monocytes # 0.7 K/mcL (0.0-1.3); Monocytes % 5.5 %; Neutrophils # 6.2 K/mcL (1.6-8.9); Platelet Count 180 K/mcL (140-400); Red Blood Count 4.85 M/mcL (4.19-5.50); Red Cell Distribution Width 14.7 % (11.5-14.5); Segmented Neutrophils % 51.1 %
[2016-11-04] MEDS: Nitroglycerin 0.4 MG TAB.SUBL SL ONE ×3 (04:39→05:06)
[2016-11-04 04:43] LABS: INR 1.2; Prothrombin Time 13.1 Seconds (9.4-12.1)
[2016-11-04 04:45] LABS: Activated Partial Thrombo Time 39.8 Seconds (26.0-36.0)
[2016-11-04 04:53] LABS: Acetaminophen < 1.0 mcg/mL (10-30); BUN/Creatinine Ratio 6 (6-26); Blood Urea Nitrogen 5 mg/dL (8-26); Calcium 9.3 mg/dL (8.6-10.8); Carbon Dioxide 22 mEq/L (19-29); Chloride 103 mEq/L (98-109); Ethanol 336 mg/dL (0-10); Glucose 99 mg/dL (70-99); Lipase 54 Units/L (8-78); Osmolality,Calculated 285 (280-300); Potassium 3.3 mEq/L (3.5-4.5); Salicylate < 5.0 mg/dL (15-30); Sodium 139 mEq/L (136-145); eGFR For African Americans > 60 (> 60); eGFR For Non-African Americans > 60 (> 60)
[2016-11-04] MEDS ORDERED: Ketorolac 15 MG/ML VIAL IVP ONE (05:41)
[2016-11-04] MEDS ORDERED: Ondansetron 4 MG/2 ML VIAL IVP PRN (05:51)
[2016-11-04] MEDS ORDERED: Acetaminophen 325 MG TABLET PO PRN (05:51)
[2016-11-04] MEDS ORDERED: Naloxone 0.4 MG/ML INJ IVP PRN (05:51)
[2016-11-04] MEDS ORDERED: *HR* LORazepam 2 MG/ML VIAL IVP PRN (05:56)
[2016-11-04] MEDS ORDERED: Ipratropium/Albuterol Neb 3 ML IH PRN (05:56)
[2016-11-04] MEDS ORDERED: Nitroglycerin 0.4 MG TAB.SUBL SL PRN (05:56)
--- NOTE | 2016-11-04 06:01 | Internal Med History&Physical ---
Date of Encounter: 11/04/16 Time of Encounter: 05:59 Assessment and Plan (1) Sepsis Current visit: Yes Status: Acute Sepsis secondary to healthcare associated pneumonia present upon admission and possible left lower extremity cellulitis Start Levaquin and cefepime Blood cultures, IV fluids Consider adding vancomycin IV Omeprazole for GI prophylaxis and Lovenox for deep prophylaxis. The patient will be admitted as inpatient, expected to stay more than 2 midnights. Full code. Time spent on this admission 40 minutes Qualifiers: Sepsis type: sepsis due to unspecified organism Qualified Code(s): A41.9 - Sepsis, unspecified organism (2) Healthcare-associated pneumonia Current visit: Yes Status: Acute (3) Hypokalemia Current visit: Yes Status: Acute Replete as needed (4) Chest pain Current visit: Yes Status: Acute History of CAD, pain appears pleuritic Continue aspirin and metoprolol Monitor troponins, telemetry, the patient had a normal stress test last month Qualifiers: Chest pain type: chest pain on breathing Qualified Code(s): R07.1 - Chest pain on breathing (5) Suicidal ideation Current visit: Yes Status: Acute Order sitter Psychiatry evaluation (6) Alcohol dependence Current visit: No Status: Acute The patient is extremely tolerant, high risk for withdrawal Taper Librium, order Ativan as needed per CIWA scale Qualifiers: Substance use status: with intoxication Complication of substance-induced condition: uncomplicated Qualified Code(s): F10.220 - Alcohol dependence with intoxication, uncomplicated (7) Left leg cellulitis Current visit: No Status: Acute Continue cefepime and Levaquin, consider vancomycin if worse (8) History of CHF (congestive heart failure) Current visit: No Status: Chronic Diastolic CHF, no exacerbation (9) History of COPD Current visit: No Status: Chronic Stable, DuoNeb nebs as needed (10) Hypertension Current visit: No Status: Chronic Qualifiers: Hypertension type: essential hypertension Qualified Code(s): I10 - Essential (primary) hypertension (11) Marijuana abuse Current visit: No Status: Chronic Internal Medicine - H&P: HPI Chief complaint: chest pain Admitted From: Emergency Dept History of present illness: Mr. Castro is a 46 year old male with a PMHx of CAD CABG, ETOH, HTN, recently discharged from the hospital where he was evaluated for chest pain, he had a normal stress test at the beginning of September. The patient came complaining of left sided chest pain sharp 10 out of 10 in intensity that lasted for 3 hours last night, did not improve with nitroglycerin. His alcohol level is 336 but he is able to give a history. Chest x-ray shows a left opacity which could represent atelectasis versus pneumonia but the patient says that she has been bringing up grayish phlegm. His white blood cell count is 12.2 heart rate is 104 blood pressure 156/97 potassium 3.3. EKG does not show any changes from the prior one troponin is negative. Complains also of severe left lower extremity pain in the dorsum of his foot appears erythematous. ER physician mentioned that the patient had suicidal ideations although the patient denied this to me. Past Med Surg Social Fam HX - Past Medical History Medical history: cirrhosis, CHF (Diastolic), COPD (Not oxygen dependent), coronary artery disease, GERD, hepatitis (Alcoholic), hyperlipidemia, hypertension, liver disease, myocardial infarction, other (Ventral hernia, leg cellulitis, neuropathy, GERD, alcohol abuse) Psychiatric history: anxiety, depression - Past Surgical History Surgical History: coronary bypass (CABG), hip replacement, knee replacement - Social History Smoking Status: Former smoker Smokeless Tobacco Status: No Alcohol use: occasionally, heavy (1 bottle of whiskey Isai Beam daily) Drug use: marijuana - Family History Mother Adopted: No Family Member Ethnicity: Non- Living Status: Hx Family Cardiac Disorders: No Hx Family Respiratory Disorders: No Hx Family Cancer: No Hx Family GI Disorders: No Hx Family Endocrine Disorder: No Hx Family Neuromuscular Disorders: No Hx Family Neurologic Disorders: No Hx Family HEENT Disorders: No Hx Family Autoimmune Disorders: No Father Adopted: No Family Member Ethnicity: Non- Living Status: Hx Family Cancer: Yes Brother Adopted: Yes (from father) Family Member Ethnicity: Non- Living Status: Hx Family Cardiac Disorders: Yes Hx Family Respiratory Disorders: Yes Hx Family Cancer: Yes (mom at 48, brother at 37) Hx Family GI Disorders: Yes Hx Family Endocrine Disorder: Yes Hx Family Neuromuscular Disorders: Yes (mother, brother) Hx Family Neurologic Disorders: No Hx Family HEENT Disorders: No Hx Family Autoimmune Disorders: No Sister Adopted: No Family Member Ethnicity: Non- Living Status: Still Living Hx Family Cardiac Disorders: Yes Hx Family Respiratory Disorders: No Hx Family Cancer: Yes (Cervical) Hx Family GI Disorders: (GERD) Hx Family Endocrine Disorder: No Hx Family Neuromuscular Disorders: No Hx Family Neurologic Disorders: No Hx Family HEENT Disorders: No Hx Family Autoimmune Disorders: No - Additional Family History Additional family history: Sister with cervical cancer, mother with CAD Internal Medicine - H&P: Meds Aspirin Enteric Coated [Aspirin EC] 81 mg PO DAILY #30 tablet.dr 10/04/16 [Rx] Atorvastatin [Lipitor] 40 mg PO HS #30 tablet 10/04/16 [Rx] Lisinopril [Zestril] 10 mg PO DAILY #30 tablet 10/04/16 [Rx] Metoprolol XL (24 HR) Succ [Toprol Xl] 50 mg PO DAILY #30 tab.er.24h 10/04/16 [ Rx] Oxycodone HCl/Acetaminophen [Percocet 7.5-325 mg Tablet] 1 each PO Q4-6H PRN # 18 tablet 10/04/16 [Rx] Tiotropium [place] [Spiriva Respimat] 2 puff IH DAILY #1 mist.inhal 10/04/16 [Rx ] Gabapentin [Neurontin] 900 mg PO BID 11/04/16 [History] Allergies morphine Allergy (Verified 10/24/16 11:36) Hallucinating Penicillins Allergy (Verified 10/24/16 11:36) Blister All Systems PM: A 10-system review of systems was performed and is negative for pertinent findings except as documented above in the HPI. Review of systems: Complaints of shortness of breath, leg pain. Other systems out of the 10 reviewed were negative - Constitutional Vitals: Temp Pulse Resp BP Pulse Ox 97.9 F 99 16 126/89 92 11/04/16 04:17 11/04/16 05:51 11/04/16 05:51 11/04/16 05:51 11/04/16 05:51 General appearance: Present: A&O X 3 - Head Head exam: Present: atraumatic, normocephalic - Eye Eye exam: Present: PERRL, conjuntiva pink, sclera anicteric Pupils: Present: PERRL - Neck Neck exam general surgery: Present: supple, trachea midline. Absent: lymphadenopathy - Respiratory Respiratory exam: Present: decreased breath sounds, CTAB, rales (Left basilar crackles). Absent: accessory muscle use, rhonchi, wheezes - Cardiovascular Cardiovascular exam: Present: RRR, +S1, +S2. Absent: diastolic murmur, gallop, rubs, systolic murmur - GI/Abdominal GI/Abdominal exam: Present: normal bowel sounds, soft, no peritoneal signs. Absent: distended, tenderness - Extremities Exam Extremities exam: Present: warm, radial pulses palpable and symetrical. Absent : calf tenderness, cyanotic, pedal edema - Neurological Exam Neurological exam: Present: CN II-XII intact, oriented X3, no focal deficits. Absent: pronater drift, facial droop, speech deficit - Skin Skin exam: Present: dry. Absent: intact (Left foot appears erythematous and warm) Internal Med - H&P Results - Labs CBC & Chem 7: 11/04/16 04:26 11/04/16 04:26
[2016-11-04] MEDS: 0.9 % Sodium Chloride 1,000 ML IVC SCH ×2 (06:47→20:00)
[2016-11-04] MEDS: Cefepime HCl 1,000 MG in D5% in Water (Mini-Bag+) 100 ML IVPB SCH ×2 (06:47→17:20)
[2016-11-04] MEDS: *HR* Enoxaparin 40 MG/0.4 ML SYRINGE SQ SCH (06:48)
[2016-11-04] MEDS: Folic Acid 1 MG TABLET PO SCH (08:41)
[2016-11-04] MEDS: Gabapentin 300 MG CAPSULE PO SCH ×2 (08:41→19:59)
[2016-11-04] MEDS: Aspirin Enteric Coated 81 MG Tablet PO SCH (08:42)
[2016-11-04] MEDS: Thiamine (B-1) 100 MG TABLET PO SCH (08:42)
[2016-11-04] MEDS: Vitamin B Complex/Vit C/Vit E 1 EACH TABLET PO SCH (08:42)
[2016-11-04] MEDS: Metoprolol XL (24 HR) Succ 50 MG TAB.ER.24H PO SCH (08:42)
[2016-11-04] MEDS: Ketorolac 30 MG/ML VIAL IVP PRN ×3 (08:43→22:15)
[2016-11-04] MEDS: *HR* LORazepam 2 MG/ML VIAL IVP PRN ×5 (08:43→22:21)
[2016-11-04] MEDS: Levofloxacin 750 MG/150 ML 750 MG/150 ML BAG IVPB SCH (08:43)
--- NOTE | 2016-11-04 15:12 | Consult Note ---
Date of Encounter: 11/04/16 Time of Encounter: 14:45 Assessment & Recommendation (1) Major depressive disorder Current visit: Yes Status: Acute Assessment & Recommendation: Patient is reporting severe depression with suicidal ideation. Continue sitter. Consider starting Celexa 10 mg by mouth daily for depression symptoms. Patient is reporting some sleep problems and has done well on Remeron in the past. Consider starting 50 mg by mouth daily at bedtime. We will continue to follow patient to determine whether psychiatric admission to be necessary as he does appear to have medical issues at this time. At this point he will likely need psychiatric admission when he is medically stable. Qualifiers: Major depression recurrence: recurrent Active/Remission status: currently active Major depression episode severity: severe Psychotic features: without psychotic features Qualified Code(s): F33.2 - Major depressive disorder, recurrent severe without psychotic features (2) Alcohol dependence with withdrawal Current visit: No Status: Acute Assessment & Recommendation: Patient is currently being monitored for alcohol withdrawal. Discussed with patient the negative effects of alcohol on his mental health. Qualifiers: Complication of substance-induced condition: uncomplicated Qualified Code(s ): F10.230 - Alcohol dependence with withdrawal, uncomplicated (3) Bereavement Current visit: Yes Status: Acute Assessment & Recommendation: Encouraged patient to consider outpatient counseling for grief. (4) Marijuana abuse Current visit: No Status: Chronic History of Present Illness Patient: known to practice within the last 3 years Requesting Physician: Mook Chi DO Reason for consult: Suicidal ideation and depression History of present illness: Mr. Castro is a 46 year old male with a history of alcohol and cannabis dependence and multiple medical issues including chronic pain problems who presented to the Hospital alcohol withdrawal and high on marijuana. Patient apparently told staff in the ER that he no longer wanted to live and he has no reason to live. He was admitted to the medical floor for multiple issues including sepsis and pneumonia. He is also going through alcohol withdrawal. Patient is very tearful during the interview. He reports severe depression that has been untreated. He does admit to being on psychiatric medications the past but cannot remember any names. Patient states that he has been admitted to the hospital before for depression and he has attempted suicide several times. Today he reports he is suicidal and he has a plan although he will not carry it out while he is here in the hospital. 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 He has gained 50 pounds since he has been unable to work. He apparently had a knee replacement that did not go well. He is currently fighting disability and has not yet received a check and has been unable to support himself financially. He was with his sister does not like him. He states it is about living environment and he thinks that she wishes he was . He denies auditory or visual hallucinations. He does feel that he is having some mild withdrawal symptoms from the alcohol. He also reports knee pain. He reports some stomach pain and nausea. Patient reports a big stressor for him is that his girlfriend in his arms in February from cancer and he has had difficulty coping with this. CC: Mook Chi, DO Past Med Surg Social Fam HX - Past Medical History Medical history: cirrhosis, CHF, COPD, coronary artery disease, GERD, hepatitis , hyperlipidemia, hypertension, liver disease, myocardial infarction - Past Psychiatric History Psychiatric history: Reports: prior suicide attempt, previous psychiatric hospitalization Past psychiatric history details: Patient vaguely reports previous suicidal attempts but does not go into details. He does not have an outpatient doctor. He cannot remember which antidepressants he has tried. He does not have a therapist. - Past Surgical History Surgical History: coronary bypass (CABG), hip replacement, knee replacement - Social History Smoking Status: Former smoker Smokeless Tobacco Status: No Alcohol use: occasionally, heavy Drug use: marijuana Occupational status: unemployed Current living situation: With Family - Family History Mother Adopted: No Family Member Ethnicity: Non- Living Status: Hx Family Cardiac Disorders: No Hx Family Respiratory Disorders: No Hx Family Cancer: Yes (brain cancer) Hx Family GI Disorders: No Hx Family Endocrine Disorder: No Hx Family Neuromuscular Disorders: No Hx Family Neurologic Disorders: No Hx Family HEENT Disorders: No Hx Family Autoimmune Disorders: No Father Adopted: No Family Member Ethnicity: Non- Living Status: Hx Family Cardiac Disorders: Yes ([place]) Hx Family Cancer: Yes Brother Adopted: Yes (from father) Family Member Ethnicity: Non- Living Status: Hx Family Cardiac Disorders: Yes Hx Family Respiratory Disorders: Yes Hx Family Cancer: Yes (brain cancer) Hx Family GI Disorders: Yes Hx Family Endocrine Disorder: Yes Hx Family Neuromuscular Disorders: Yes (mother, brother) Hx Family Neurologic Disorders: No Hx Family HEENT Disorders: No Hx Family Autoimmune Disorders: No Sister Adopted: No Family Member Ethnicity: Non- Living Status: Still Living Hx Family Cardiac Disorders: Yes Hx Family Respiratory Disorders: No Hx Family Cancer: Yes (Cervical) Hx Family GI Disorders: (GERD) Hx Family Endocrine Disorder: No Hx Family Neuromuscular Disorders: No Hx Family Neurologic Disorders: No Hx Family HEENT Disorders: No Hx Family Autoimmune Disorders: Yes (lupus) Medications & Allergies Aspirin Enteric Coated [Aspirin EC] 81 mg PO DAILY #30 tablet.dr 10/04/16 [Rx] Atorvastatin [Lipitor] 40 mg PO HS #30 tablet 10/04/16 [Rx] Lisinopril [Zestril] 10 mg PO DAILY #30 tablet 10/04/16 [Rx] Metoprolol XL (24 HR) Succ [Toprol Xl] 50 mg PO DAILY #30 tab.er.24h 10/04/16 [ Rx] Tiotropium Caspian [Spiriva Respimat] 2 puff IH DAILY #1 mist.inhal 10/04/16 [Rx ] ARIPiprazole [Abilify] 10 mg PO DAILY 11/04/16 [History] Duloxetine HCl [Cymbalta] 60 mg PO BID 11/04/16 [History] Fluticasone Propionate Nasal [Flonase] 50 mcg NS BID 11/04/16 [History] Gabapentin [Neurontin] 600 mg PO BID 11/04/16 [History] Mirtazapine [Remeron] 15 mg PO HS 11/04/16 [History] Nitroglycerin [Nitrostat] 0.4 mg SL Q5M PRN 11/04/16 [History] Allergies morphine Allergy (Verified 10/24/16 11:36) Hallucinating Penicillins Allergy (Verified 10/24/16 11:36) Blister Review of Systems Constitutional: Denies: fever, chills, weakness, weight change Eyes: Denies: eye pain, vision change Ears, Nose, Throat: Denies: ear pain, throat pain, dental pain, hearing loss, congestion Cardiovascular: Denies: chest pain, palpitations, dyspnea on exertion Respiratory: Denies: cough, dyspnea, wheezes Gastrointestinal: Reports: abdominal pain, nausea Genitourinary male: Denies: urgency, dysuria, frequency, genital lesions Genitourinary female: Denies: urgency, dysuria, frequency, abnormal menses, dyspareunia Musculoskeletal: Reports: back pain, joint pain, myalgia Integumentary: Denies: rash, lesions, pruritus Neurological: Reports: headache Psychiatric: Reports: depression, anxiety, abnormal sleep pattern, suicidal ideation, hopelessness, irritability, mood swings Endocrine: Reports: fatigue Hematologic/Lymphatic: Denies: easy bruising, lymphadenopathy Allergic/Immunologic: Denies: urticaria, itchy eyes Mental Status Exam Patient orientation: Yes Person, Yes Time, Yes Place Level of alertness: Alert Patient appearance: Unkempt, Disheveled, Malodorous Behavior: cooperative, tearful Psychomotor activity: Slowed Eye contact: Diverts Contact Mood description: Angry, Irritable Affect description: tearful, dysphoric Speech pattern: Normal rate, Normal rhythm, Normal tone Speech volume: Normal Thought process: Intact, Linear Thought content: Yes Intact, Yes Suicidal ideation, No Homicidal ideation Perceptual disturbances: No Auditory hallucinations, No Visual hallucinations Attention span: Capable of Focused Attention Memory description: Grossly Intact Patient reliability: Reliable Historian Intelligence estimate: Average Judgment: Limited Insight: Minimal Results - Vital Signs Vital signs: Temp Pulse Resp BP Pulse Ox 97.5 F L 92 20 138/83 95 11/04/16 15:00 11/04/16 15:00 11/04/16 15:00 11/04/16 15:00 11/04/16 15:00 - Labs Labs: Laboratory Last Values WBC 12.2 K/mcL (4.3-11.1) H 11/04/16 04:26 RBC 4.85 M/mcL (4.19-5.50) 11/04/16 04:26 Hgb 16.1 g/dL (12.9-16.9) 11/04/16 04:26 Hct 47.0 % (37.5-50.1) 11/04/16 04:26 MCV 96.9 fL (83.0-100.0) 11/04/16 04:26 MCH 33.2 pg (28.0-33.3) 11/04/16 04:26 MCHC 34.3 g/dL (31.6-35.5) 11/04/16 04:26 RDW 14.7 % (11.5-14.5) H 11/04/16 04:26 Plt Count 180 K/mcL (140-400) 11/04/16 04:26 MPV 9.3 fL (9.4-12.4) L 11/04/16 04:26 Immature Gran % 0.3 % (0-4) 11/04/16 04:26 Seg Neutrophils % 51.1 % 11/04/16 04:26 Lymphocytes % 36.1 % 11/04/16 04:26 Monocytes % 5.5 % 11/04/16 04:26 Eosinophils % 5.4 % 11/04/16 04:26 Basophils % 1.6 % 11/04/16 04:26 Neutrophils # 6.2 K/mcL (1.6-8.9) 11/04/16 04:26 Lymphocytes # 4.4 K/mcL (0.6-4.6) 11/04/16 04:26 Monocytes # 0.7 K/mcL (0.0-1.3) 11/04/16 04:26 Eosinophils # 0.7 K/mcL (0.0-0.6) H 11/04/16 04:26 Basophils # 0.2 K/mcL (0.0-0.2) 11/04/16 04:26 PT 13.1 Seconds (9.4-12.1) H 11/04/16 04:26 INR 1.2 11/04/16 04:26 APTT 39.8 Seconds (26.0-36.0) H 11/04/16 04:26 Sodium 139 mEq/L (136-145) 11/04/16 04:26 Potassium 3.3 mEq/L (3.5-4.5) L 11/04/16 04:26 Chloride 103 mEq/L (98-109) 11/04/16 04:26 Carbon Dioxide 22 mEq/L (19-29) 11/04/16 04:26 BUN 5 mg/dL (8-26) L 11/04/16 04:26 Creatinine 0.82 mg/dL (0.72-1.25) 11/04/16 04:26 Est GFR ( Amer) > 60 (> 60) 11/04/16 04:26 Est GFR (Non-Af Amer) > 60 (> 60) 11/04/16 04:26 BUN/Creatinine Ratio 6 (6-26) 11/04/16 04:26 Glucose 99 mg/dL (70-99) 11/04/16 04:26 Calculated Osmolality 285 (280-300) 11/04/16 04:26 Lactic Acid 3.1 mmol/L (0.5-2.2) H 11/04/16 09:02 Calcium 9.3 mg/dL (8.6-10.8) 11/04/16 04:26 Troponin I 0.00 ng/mL (0-0.03) 11/04/16 11:58 B-Natriuretic Peptide 25 pg/mL (0-100) 11/04/16 04:26 Lipase 54 Units/L (8-78) 11/04/16 04:26 Salicylates < 5.0 mg/dL (15-30) L 11/04/16 04:26 Acetaminophen < 1.0 mcg/mL (10-30) L 11/04/16 04:26 Ethyl Alcohol 336 mg/dL (0-10) H 11/04/16 04:26 Consult Discharge Plan - Plan Referrals: NO,PCP [Primary Care Provider] -
[2016-11-04] MEDS: *HR* HYDROcodone/Acet 5/325 mg TABLET PO PRN ×2 (17:19→22:15)
[2016-11-04] MEDS: Mirtazapine 15 MG TABLET PO SCH (19:59)
[2016-11-05] MEDS: *HR* LORazepam 2 MG/ML VIAL IVP PRN ×4 (01:07→16:34)
[2016-11-05] MEDS: *HR* HYDROcodone/Acet 5/325 mg TABLET PO PRN ×2 (02:18→06:25)
[2016-11-05 04:10] LABS: Hematocrit 44.3 % (37.5-50.1); Mean Corpuscular HGB Conc 32.1 g/dL (31.6-35.5); Mean Corpuscular Hemoglobin 32.6 pg (28.0-33.3); Mean Corpuscular Volume 101.6 fL (83.0-100.0); Mean Platelet Volume 9.8 fL (9.4-12.4); Platelet Count 101 K/mcL (140-400); Red Blood Count 4.36 M/mcL (4.19-5.50); Red Cell Distribution Width 14.6 % (11.5-14.5)
[2016-11-05] MEDS: Ketorolac 30 MG/ML VIAL IVP PRN ×3 (04:11→20:28)
[2016-11-05 04:17] LABS: Hemoglobin 14.2 g/dL (12.9-16.9)
[2016-11-05 04:26] LABS: BUN/Creatinine Ratio 10 (6-26); Blood Urea Nitrogen 10 mg/dL (8-26); Calcium 9.2 mg/dL (8.6-10.8); Carbon Dioxide 28 mEq/L (19-29); Chloride 104 mEq/L (98-109); Chol/HDL Ratio 5.6 (0-4.9); Cholesterol 200 mg/dL (< 200); Glucose 140 mg/dL (70-99); HDL Cholesterol 36 mg/dL (40-59); LDL Cholesterol,Calculated 137 mg/dL (0-99); Osmolality,Calculated 289 (280-300); Potassium 4.1 mEq/L (3.5-4.5); Sodium 139 mEq/L (136-145); Triglycerides 137 mg/dL (< 150); eGFR For African Americans > 60 (> 60); eGFR For Non-African Americans > 60 (> 60)
[2016-11-05] MEDS: *HR* Enoxaparin 40 MG/0.4 ML SYRINGE SQ SCH (06:24)
[2016-11-05] MEDS: Cefepime HCl 1,000 MG in D5% in Water (Mini-Bag+) 100 ML IVPB SCH ×2 (06:24→16:34)
[2016-11-05] MEDS: Gabapentin 300 MG CAPSULE PO SCH ×2 (09:10→20:28)
[2016-11-05] MEDS: Vitamin B Complex/Vit C/Vit E 1 EACH TABLET PO SCH (09:10)
[2016-11-05] MEDS: Metoprolol XL (24 HR) Succ 50 MG TAB.ER.24H PO SCH (09:10)
[2016-11-05] MEDS: Thiamine (B-1) 100 MG TABLET PO SCH (09:11)
[2016-11-05] MEDS: Aspirin Enteric Coated 81 MG Tablet PO SCH (09:12)
[2016-11-05] MEDS: Folic Acid 1 MG TABLET PO SCH (09:12)
[2016-11-05] MEDS: *HR* HYDROcodone/Acet 10/325 mg TABLET PO PRN ×2 (11:00→17:59)
[2016-11-05] MEDS: Levofloxacin 750 MG/150 ML 750 MG/150 ML BAG IVPB SCH (11:01)
--- NOTE | 2016-11-05 13:22 | Psychiatry Progress Note ---
Date of Encounter: 11/05/16 Time of Encounter: 12:20 Subjective Interval history: Isis is seen today for follow-up after initial consultation was performed yesterday. Patient continues to report severe depression and that he has lost everything in his life. He states that he worked for 30 years and now he has nothing. He states that no one helps and he will go home" I'll whack myself." He has voiced suicidal ideations and thoughts to staff but does not give an exact plan to this provider. He states he is anxious and requested Ativan for this. We discussed that that is for his withdrawal and not for anxiety. He would like to restart psychiatric medications including the Remeron. He does not want to be admitted to the psych floor by also on some level reports that " I do not want to kill myself." He does not feel supported by his son or his sister and feels hopeless about his life. Review of Systems Psychiatric: Reports: depression, anxiety, abnormal sleep pattern, suicidal ideation, hopelessness, irritability, mood swings Objective: Exam Patient orientation: Yes Person, Yes Time, Yes Place Level of alertness: Alert Patient appearance: Unkempt Behavior: tearful, agitated Psychomotor activity: Normal Eye contact: Diverts Contact Mood description: Depressed, Irritable Affect description: congruent with mood, tearful, dysphoric Speech pattern: Normal rate, Normal rhythm, Normal tone Speech volume: Normal Thought content: Yes Suicidal ideation, No Homicidal ideation Perceptual disturbances: No Auditory hallucinations, No Visual hallucinations Judgment: Poor Insight: None Results - Vital Signs Vital Signs: Temp Pulse Resp BP Pulse Ox 97.7 F 73 20 155/79 93 11/05/16 12:54 11/05/16 12:54 11/05/16 12:54 11/05/16 12:54 11/05/16 12:54 - Labs Labs: Laboratory Results - last 24 hr 11/04/16 11/04/16 11/05/16 11:58 18:13 03:48 WBC 4.5 D RBC 4.36 Hgb 14.2 D Hct 44.3 MCV 101.6 H MCH 32.6 MCHC 32.1 RDW 14.6 H Plt Count 101 L MPV 9.8 Sodium Potassium Chloride Carbon Dioxide BUN Creatinine Est GFR ( Amer) Est GFR (Non-Af Amer) BUN/Creatinine Ratio Glucose Calculated Osmolality Calcium Troponin I 0.00 0.02 Triglycerides Cholesterol LDL Cholesterol, Calc VLDL Cholesterol, Calc HDL Cholesterol Cholesterol/HDL Ratio 11/05/16 03:48 WBC RBC Hgb Hct MCV MCH MCHC RDW Plt Count MPV Sodium 139 Potassium 4.1 Chloride 104 Carbon Dioxide 28 BUN 10 Creatinine 1.00 Est GFR ( Amer) > 60 Est GFR (Non-Af Amer) > 60 BUN/Creatinine Ratio 10 Glucose 140 H Calculated Osmolality 289 Calcium 9.2 Troponin I Triglycerides 137 Cholesterol 200 H LDL Cholesterol, Calc 137 H VLDL Cholesterol, Calc 27 HDL Cholesterol 36 L Cholesterol/HDL Ratio 5.6 H - Impressions ITS Impressions Chest X-Ray 11/05/16 08:19 IMPRESSION: Minimal bibasilar atelectasis and/or scarring. No evident pneumonia. D/ / Armando Aponte MD / Armando Aponte MD Interpreting Provider: Armando Aponte MD Assessment and Plan (1) Major depressive disorder Current visit: Yes Status: Acute Plan: Continue hospitalization, Close observation, Suicide Precautions per unit protocol, Monitor sleep, Monitor appetite Additional Plan: Continue sitter. Recommend starting Celexa and Remeron and monitoring patient's response to this. Risks, benefits, side effects, alternatives discussed w/pt: Yes Patient agreeable to treatment: Yes Qualifiers: Major depression recurrence: recurrent Active/Remission status: currently active Major depression episode severity: severe Psychotic features: without psychotic features Qualified Code(s): F33.2 - Major depressive disorder, recurrent severe without psychotic features (2) Alcohol dependence with withdrawal Current visit: No Status: Acute Plan: Continue hospitalization, Close observation Additional Plan: Recommend continuing CIWA protocol. Qualifiers: Complication of substance-induced condition: uncomplicated Qualified Code(s ): F10.230 - Alcohol dependence with withdrawal, uncomplicated (3) Anxiety Current visit: No Status: Chronic Plan: Continue hospitalization, Close observation Additional Plan: Consider starting Vistaril 50 mg 3 times a day when necessary for anxiety symptoms to avoid needing habit-forming substances for patient's anxiety. Monitor for oversedation and side effects. (4) Bereavement Current visit: Yes Status: Acute (5) Marijuana abuse Current visit: No Status: Chronic Consult Discharge Plan - Plan Referrals: NO,PCP [Primary Care Provider] -
[2016-11-05] MEDS ORDERED: hydrOXYzine pamoate 25 MG CAPSULE PO PRN (15:46)
[2016-11-05] MEDS: 0.9 % Sodium Chloride 1,000 ML IVC SCH (16:39)
--- NOTE | 2016-11-05 18:08 | Internal Med Progress Note ---
Date of Encounter: 11/05/16 Time of Encounter: 08:00 - Assessment and plan (1) Pneumonia due to aerobic bacteria Current Visit: Yes Status: Acute Assessment and plan: Currently on IV abx. Seems to be slowly improving. No fever. WBC now normal. Recheck CXR. (2) Sepsis Current Visit: Yes Status: Resolved Assessment and plan: Continue to monitor. Qualifiers: Sepsis type: sepsis due to unspecified organism Qualified Code(s): A41.9 - Sepsis, unspecified organism (3) Left leg cellulitis Current Visit: Yes Status: Acute Assessment and plan: On IV abx at this time. (4) Alcohol dependence Current Visit: Yes Status: Acute Assessment and plan: Continue CIWA. Following for now. Qualifiers: Substance use status: in withdrawal Complication of substance-induced condition: with perceptual disturbance Qualified Code(s): F10.232 - Alcohol dependence with withdrawal with perceptual disturbance (5) Hypertension Current Visit: Yes Status: Chronic Assessment and plan: Monitor blood pressure. Qualifiers: Hypertension type: essential hypertension Qualified Code(s): I10 - Essential (primary) hypertension (6) CHF (congestive heart failure) Current Visit: Yes Status: Chronic Assessment and plan: Monitor. Qualifiers: Congestive heart failure type: diastolic Congestive heart failure chronicity: chronic Qualified Code(s): I50.32 - Chronic diastolic (congestive ) heart failure (7) Major depressive disorder Current Visit: Yes Status: Acute Assessment and plan: Per psychiatry. Qualifiers: Major depression recurrence: recurrent Active/Remission status: currently active Major depression episode severity: severe Psychotic features: without psychotic features Qualified Code(s): F33.2 - Major depressive disorder, recurrent severe without psychotic features - Subjective Interval history: Mr. Castro is currently admitted for pneumonia and acute alcohol withdrawal. He is high risk due to potential for DTs and suicidal ideation. Mr. Castro is very tearful. He has not used a lot of Ativan. No CP or SOB. Has cough. No fever. - Constitutional Vitals: Temp Pulse Resp BP Pulse Ox 97.4 F L 65 20 136/96 96 11/05/16 15:39 11/05/16 15:39 11/05/16 15:39 11/05/16 15:39 11/05/16 15:39 General appearance: Present: A&O X 3 Exam: Tearful and distressed. - Head Head exam: Present: normocephalic - Eye Eye exam: Present: conjuntiva pink - ENT ENT exam: Present: mucous membranes moist - Respiratory Respiratory exam: Present: CTAB. Absent: rhonchi, wheezes - Cardiovascular Cardiovascular exam: Present: RRR. Absent: tachycardia - GI/Abdominal GI/Abdominal exam: Present: hernia, soft. Absent: tenderness - Extremities Exam Extremities exam: Present: warm. Absent: tenderness Additional comments: Minimal erythema on L. - Neurological Exam Neurological exam: Present: alert, oriented X3 - Psychiatric Psychiatric exam: Present: depressed, suicidal ideation Internal Medicine: Result - Labs CBC & Chem 7: 11/05/16 03:48 11/05/16 03:48 Labs: Short CBC 11/05/16 Range/Units 03:48 WBC 4.5 D (4.3-11.1) K/mcL Hgb 14.2 D (12.9-16.9) g/dL Hct 44.3 (37.5-50.1) % Plt Count 101 L (140-400) K/mcL BMP 11/05/16 03:48 Sodium 139 Potassium 4.1 Chloride 104 Carbon Dioxide 28 BUN 10 Creatinine 1.00 Glucose 140 H Calcium 9.2 Cardiac Enzymes 11/04/16 Range/Units 18:13 Troponin I 0.02 (0-0.03) ng/mL - ABG Interpretation ABG results: PT/INR, D-dimer PT 13.1 Seconds (9.4-12.1) H 11/04/16 04:26 - Impressions Impressions Chest X-Ray 11/05/16 08:19 IMPRESSION: Minimal bibasilar atelectasis and/or scarring. No evident pneumonia. D/ / Armando Aponte MD / Armando Aponte MD Interpreting Provider: Armando Aponte MD Consult Discharge Plan - Plan Referrals: NO,PCP [Primary Care Provider] -
[2016-11-05] MEDS: Mirtazapine 15 MG TABLET PO SCH (20:28)
[2016-11-06] MEDS: *HR* HYDROcodone/Acet 10/325 mg TABLET PO PRN ×3 (00:14→13:42)
[2016-11-06] MEDS: *HR* LORazepam 2 MG/ML VIAL IVP PRN (00:17)
[2016-11-06] MEDS: Cefepime HCl 1,000 MG in D5% in Water (Mini-Bag+) 100 ML IVPB SCH (05:56)
[2016-11-06] MEDS: 0.9 % Sodium Chloride 1,000 ML IVC SCH ×2 (05:56)
[2016-11-06] MEDS: *HR* Enoxaparin 40 MG/0.4 ML SYRINGE SQ SCH (05:57)
--- NOTE | 2016-11-06 08:13 | Electrocardiograph Report ---
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
[2016-11-06] MEDS: Vitamin B Complex/Vit C/Vit E 1 EACH TABLET PO SCH (08:44)
[2016-11-06] MEDS: Folic Acid 1 MG TABLET PO SCH (08:45)
[2016-11-06] MEDS: Gabapentin 300 MG CAPSULE PO SCH (08:45)
[2016-11-06] MEDS: Thiamine (B-1) 100 MG TABLET PO SCH (08:45)
[2016-11-06] MEDS: Metoprolol XL (24 HR) Succ 50 MG TAB.ER.24H PO SCH (08:45)
[2016-11-06] MEDS: Aspirin Enteric Coated 81 MG Tablet PO SCH (08:45)
[2016-11-06] MEDS: Ketorolac 30 MG/ML VIAL IVP PRN (08:45)
[2016-11-06] MEDS: Levofloxacin 750 MG/150 ML 750 MG/150 ML BAG IVPB SCH (08:46)
[2016-11-06] MEDS ORDERED: Nicotine 21 MG PATCH.TD24 TD SCH (12:30)
[2016-11-06 13:54] VITALS: BP 154/91
--- NOTE | 2016-11-06 14:57 | Discharge Summary ---
Date of Encounter: 11/06/16 Time of Encounter: 14:45 - Discharge Diagnosis (1) Pneumonia due to aerobic bacteria Priority: Primary Status: Acute (2) Sepsis Priority: Primary Status: Resolved Qualifiers: Sepsis type: sepsis due to unspecified organism Qualified Code(s): A41.9 - Sepsis, unspecified organism (3) Left leg cellulitis Priority: Primary Status: Acute (4) Alcohol dependence Priority: Secondary Status: Acute Qualifiers: Substance use status: in withdrawal Complication of substance-induced condition: with perceptual disturbance Qualified Code(s): F10.232 - Alcohol dependence with withdrawal with perceptual disturbance (5) Hypertension Priority: Secondary Status: Chronic Qualifiers: Hypertension type: essential hypertension Qualified Code(s): I10 - Essential (primary) hypertension (6) CHF (congestive heart failure) Priority: Secondary Status: Chronic Qualifiers: Congestive heart failure type: diastolic Congestive heart failure chronicity: chronic Qualified Code(s): I50.32 - Chronic diastolic (congestive ) heart failure (7) Major depressive disorder Priority: Secondary Status: Acute Qualifiers: Major depression recurrence: recurrent Active/Remission status: currently active Major depression episode severity: severe Psychotic features: without psychotic features Qualified Code(s): F33.2 - Major depressive disorder, recurrent severe without psychotic features (8) Suicidal behavior Priority: Secondary Status: Acute Qualifiers: Attempted self-injury: without attempted self-injury Qualified Code(s): R46.89 - Other symptoms and signs involving appearance and behavior - Discharge Medications Prescriptions: Levofloxacin [Levaquin] 750 mg PO DAILY #1 tablet Home Medications: Aspirin Enteric Coated [Aspirin EC] 81 mg PO DAILY #30 tablet.dr 10/04/16 [Rx] Atorvastatin [Lipitor] 40 mg PO HS #30 tablet 10/04/16 [Rx] Lisinopril [Zestril] 10 mg PO DAILY #30 tablet 10/04/16 [Rx] Metoprolol XL (24 HR) Succ [Toprol Xl] 50 mg PO DAILY #30 tab.er.24h 10/04/16 [ Rx] Tiotropium [place] [Spiriva Respimat] 2 puff IH DAILY #1 mist.inhal 10/04/16 [Rx ] Fluticasone Propionate Nasal [Flonase] 50 mcg NS BID 11/04/16 [History] Mirtazapine [Remeron] 15 mg PO HS 11/04/16 [History] Nitroglycerin [Nitrostat] 0.4 mg SL Q5M PRN 11/04/16 [History] Acetaminophen [Tylenol] 650 mg PO Q6HR PRN #0 tablet 11/06/16 [Rx] Aspirin Enteric Coated [Aspirin EC] 81 mg PO DAILY tablet. 11/06/16 [Rx] Chlordiazepoxide [Librium] 25 mg PO QID capsule 11/06/16 [Rx] Citalopram [CeleXA] 10 mg PO DAILY tablet 11/06/16 [Rx] Folic Acid 1 mg PO DAILY tablet 11/06/16 [Rx] Gabapentin [Neurontin] 900 mg PO BID capsule 11/06/16 [Rx] HYDROcodone/Acet 10/325 mg [[place] 10-325 mg] 1 each PO Q6H PRN #0 tablet [Rx] Ipratropium/Albuterol Neb [Duoneb] 3 ml IH [id number] PRN #0 inhsol 11/06/16 [Rx] Levofloxacin [Levaquin] 750 mg PO DAILY #1 tablet 11/06/16 [Rx] Mirtazapine [Remeron] 15 mg PO HS tablet 11/06/16 [Rx] Nicotine Patch [Nicoderm] 21 mg TD DAILY #0 patch.td24 11/06/16 [Rx] Nitroglycerin 0.4 mg SL Q5MIN PRN #0 tab.subl 11/06/16 [Rx] Thiamine (B-1) [Vitamin B-1] 100 mg PO DAILY tablet 11/06/16 [Rx] Vitamin B Complex/Vit C/Vit E [Stresstab] 1 each PO DAILY tablet 11/06/16 [Rx] hydrOXYzine pamoate [HydrOXYzine Pamoate] 50 mg PO TID PRN #0 capsule 11/06/16 [ Rx] Allergies/Adverse Reactions: Allergies morphine Allergy (Verified 10/24/16 11:36) Hallucinating Penicillins Allergy (Verified 10/24/16 11:36) Blister Procedures/tests Complete & Pending: Procedures Performed prior 72 hours Category Date Time Status EKG [ECG 12 lead ECG] [ECG] DAILY Y 11/06/16 06:00 Ordered Date of admission: 11/04/16 06:30 Primary care physician: PCP NO Consults: Dr. Rodriguez Discharging clinician: Mook Chi Anticipated date of discharge: 11/06/16 - Patient Status Disposition: Transfer Psychiatric Hosp Condition: Fair Functional capacity at discharge: independent ambulation Overall status at discharge: patient is progressing back to baseline - Discharge Instructions Follow Up With: NO,PCP [Primary Care Provider] - - Diet and Activity Activity: increase activity as tolerated Hospital course: Mr. Castro is a 46 year old male with history of depression and chronic alcoholism presented to ED with suicidal ideation and L side chest pain. He was evaluated in the ED and felt to have a pneumonia. At that time he was admitted for further evaluation and treatment. Mr. Castro was admitted to med floor. He was started on IV abx to cover pneumonia and possible LLE cellulitis. Due to reports of suicidal ideation he had a continuous sitter. He improved on IV abx and was seen by psychiatry. Medications were adjusted and it was recommended he be admitted to the inpatient unit. He was agreeable. On 11/06 he was afebrile with stable vitals. At that time he was medical clear for discharge and will complete abx course with oral Levaquin. - Time Spent with Patient Total time spent providing and/or coordinating discharge services: 41min - Constitutional Vitals: Temp Pulse Resp BP Pulse Ox 97.8 F 79 16 154/91 98 11/06/16 13:53 11/06/16 13:53 11/06/16 13:53 11/06/16 13:53 11/06/16 13:53 General appearance: Present: A&O X 3 - Head Head exam: Present: normocephalic - Eye Eye exam: Present: EOMI, conjuntiva pink - ENT ENT exam: Present: mucous membranes dry - Respiratory Respiratory exam: Present: CTAB. Absent: rhonchi, wheezes - Cardiovascular Cardiovascular exam: Present: RRR. Absent: tachycardia - GI/Abdominal GI/Abdominal exam: Present: soft. Absent: tenderness - Extremities Exam Extremities exam: Present: warm Additional comments: Chronic venous stasis changes noted bilaterally. - Neurological Exam Neurological exam: Present: alert, oriented X3 - Psychiatric Psychiatric exam: Present: anxious, depressed
--- NOTE | 2016-11-06 16:25 | Psychiatry Progress Note ---
Date of Encounter: 11/06/16 Time of Encounter: 15:45 Subjective Interval history: Patient was seen for follow-up consultation. Staff report that patient is making suicidal statements and continue to report feeling suicidal AND hopeless. On interview patient is displaying depressed more and flat affect, he endorse suicidal ideation and interested in getting help. Patient will be transferred to psychiatric unit after medical clearance. Review of Systems Psychiatric: Reports: depression, anxiety, abnormal sleep pattern, suicidal ideation, hopelessness, irritability, mood swings Results - Vital Signs Vital Signs: Temp Pulse Resp BP Pulse Ox 97.8 F 79 16 154/91 98 11/06/16 13:53 11/06/16 13:53 11/06/16 13:53 11/06/16 13:53 11/06/16 13:53 - Impressions ITS Impressions Chest X-Ray 11/05/16 08:19 IMPRESSION: Minimal bibasilar atelectasis and/or scarring. No evident pneumonia. D/ / Armando Aponte MD / Armando Aponte MD Interpreting Provider: Armando Aponte MD Consult Discharge Plan - Plan Referrals: NO,PCP [Primary Care Provider] - Prescriptions: Levofloxacin [Levaquin] 750 mg PO DAILY #1 tablet
== END 2016-11-06 17:35 | DRG 720 ==
LOC: EMEROO 04:12 → 3BNU 04:12 → SUATTDRO 06:30
PROVIDERS: ADMIT Registered Nurse; ATTEND Internal Medicine

== ENCOUNTER 2016-11-06 17:43 | Inpatient (IN) ==
[2016-11-06] MEDS ORDERED: Nitroglycerin 0.4 MG TAB.SUBL SL PRN (17:45)
[2016-11-06] MEDS ORDERED: Ipratropium/Albuterol Neb 3 ML IH PRN (17:45)
[2016-11-06] MEDS ORDERED: MOM Conc 10 ML UD.LIQ PO PRN (17:53)
[2016-11-06] MEDS ORDERED: *HR* LORazepam 2 MG/ML VIAL IM PRN (17:53)
[2016-11-06] MEDS ORDERED: Mag Hydrox/Al Hydrox/Simeth 30 ML UDC PO PRN (17:53)
[2016-11-06] MEDS ORDERED: *HR* LORazepam 1 MG TABLET PO PRN (17:53)
[2016-11-06] MEDS ORDERED: Haloperidol Lactate 5 MG/ML VIAL IM PRN (17:53)
[2016-11-06] MEDS ORDERED: traZODone 50 MG TABLET PO PRN (17:53)
[2016-11-06] MEDS: *HR* HYDROcodone/Acet 10/325 mg TABLET PO PRN (20:11)
[2016-11-06] MEDS: Gabapentin 300 MG CAPSULE PO SCH (20:12)
[2016-11-06] MEDS: Mirtazapine 15 MG TABLET PO SCH (20:12)
[2016-11-06] MEDS: hydrOXYzine pamoate 25 MG CAPSULE PO PRN ×2 (20:12→23:37)
[2016-11-06] MEDS: Fluticasone Propionate Nasal 50 MCG/SPRAY BOTTLE NS SCH (20:13)
[2016-11-06] MEDS: Acetaminophen 325 MG TABLET PO PRN (23:37)
[2016-11-07] MEDS: *HR* HYDROcodone/Acet 10/325 mg TABLET PO PRN ×4 (04:13→22:15)
[2016-11-07] MEDS: Gabapentin 300 MG CAPSULE PO SCH ×2 (09:12→20:22)
[2016-11-07] MEDS: Vitamin B Complex/Vit C/Vit E 1 EACH TABLET PO SCH (09:12)
[2016-11-07] MEDS: Aspirin Enteric Coated 81 MG Tablet PO SCH (09:13)
[2016-11-07] MEDS: Thiamine (B-1) 100 MG TABLET PO SCH (09:13)
[2016-11-07] MEDS: levoFLOXacin 750 MG TABLET PO SCH (09:13)
[2016-11-07] MEDS: Metoprolol XL (24 HR) Succ 50 MG TAB.ER.24H PO SCH (09:13)
[2016-11-07] MEDS: Nicotine 21 MG PATCH.TD24 TD SCH (09:14)
[2016-11-07] MEDS: Tiotropium 18 MCG inhalation IH SCH (09:16)
[2016-11-07] MEDS: Fluticasone Propionate Nasal 50 MCG/SPRAY BOTTLE NS SCH ×2 (09:17→20:42)
[2016-11-07] MEDS: Folic Acid 1 MG TABLET PO SCH (10:24)
--- NOTE | 2016-11-07 13:53 | Psychiatry History & Physical ---
Date of Encounter: 11/07/16 Time of Encounter: 13:00 History of Present Illness Patient Stated Chief Complaint: Suicidal ideation Medicare Admission Attestation: For traditional Medicare patients the provided hospital inpatient services are reasonable and necessary and in the case of services not specified as inpatient -only under 42 CFR 419.22 (n), that they are appropriately provided as inpatient services in accordance 42 CFR 412.3. For Critical Access Hospital the patient may reasonably be expected to be discharged or transferred to a hospital within 96 hours after admission to the Critical Access Hospital. Admitted From: Intrahospital Transfer (3 B 53) History of Present Illness: Mr. Castro is a 46 year old male admitted to the hospital for evaluation of chest pain. Psychiatry was consulted to evaluate patient for suicidal ideation. And after medical stabilization he was admitted to psychiatry for treatment. Patient was admitted to this unit in 09/29/2016 for similar presentation and he was discharged on medication with follow-up plans as outpatient, patient did not follow up as planned and continue to consume large quantities of alcohol and smoking marijuana frequently and did not comply with medication. Patient reports depressed mood hopelessness and suicidal thoughts without definite plan. He is dealing with multiple stresses including financial , physical health and housing issues. He has been turned down for disability several times and she is working with an research attorney to help him with his application. Past Med Surg Social Fam HX - Past Medical History Medical history: cirrhosis, CHF, COPD, coronary artery disease, GERD, hepatitis , hyperlipidemia, hypertension, liver disease, myocardial infarction - Past Psychiatric History Psychiatric history: Reports: depression, previous psychiatric hospitalization - Past Surgical History Surgical History: coronary bypass (CABG), hip replacement, knee replacement - Social History Smoking Status: Former smoker Smokeless Tobacco Status: No Alcohol use: heavy, recent Drug use: marijuana - Family History Mother Adopted: No Family Member Ethnicity: Non- Living Status: Hx Family Cardiac Disorders: No Hx Family Respiratory Disorders: No Hx Family Cancer: Yes (brain cancer) Hx Family GI Disorders: No Hx Family Endocrine Disorder: No Hx Family Neuromuscular Disorders: No Hx Family Neurologic Disorders: No Hx Family HEENT Disorders: No Hx Family Autoimmune Disorders: No Father Adopted: No Family Member Ethnicity: Non- Living Status: Hx Family Cardiac Disorders: Yes (ID) Hx Family Cancer: Yes Brother Adopted: Yes (from father) Family Member Ethnicity: Non- Living Status: Hx Family Cardiac Disorders: Yes Hx Family Respiratory Disorders: Yes Hx Family Cancer: Yes (brain cancer) Hx Family GI Disorders: Yes Hx Family Endocrine Disorder: Yes Hx Family Neuromuscular Disorders: Yes (mother, brother) Hx Family Neurologic Disorders: No Hx Family HEENT Disorders: No Hx Family Autoimmune Disorders: No Sister Adopted: No Family Member Ethnicity: Non- Living Status: Still Living Hx Family Cardiac Disorders: Yes Hx Family Respiratory Disorders: No Hx Family Cancer: Yes (Cervical) Hx Family GI Disorders: (GERD) Hx Family Endocrine Disorder: No Hx Family Neuromuscular Disorders: No Hx Family Neurologic Disorders: No Hx Family HEENT Disorders: No Hx Family Autoimmune Disorders: Yes (lupus) Medications & Allergies Atorvastatin [Lipitor] 40 mg PO HS #30 tablet 10/04/16 [Rx] Lisinopril [Zestril] 10 mg PO DAILY #30 tablet 10/04/16 [Rx] Metoprolol XL (24 HR) Succ [Toprol Xl] 50 mg PO DAILY #30 tab.er.24h 10/04/16 [ Rx] Tiotropium [place] [Spiriva Respimat] 2 puff IH DAILY #1 mist.inhal 10/04/16 [Rx ] Fluticasone Propionate Nasal [Flonase] 50 mcg NS BID 11/04/16 [History] Acetaminophen [Tylenol] 650 mg PO Q6HR PRN #0 tablet 11/06/16 [Rx] Aspirin Enteric Coated [Aspirin EC] 81 mg PO DAILY tablet. 11/06/16 [Rx] Chlordiazepoxide [Librium] 25 mg PO QID capsule 11/06/16 [Rx] Citalopram [CeleXA] 10 mg PO DAILY tablet 11/06/16 [Rx] Folic Acid 1 mg PO DAILY tablet 11/06/16 [Rx] Gabapentin [Neurontin] 900 mg PO BID capsule 11/06/16 [Rx] HYDROcodone/Acet 10/325 mg [[place] 10-325 mg] 1 each PO Q6H PRN #0 tablet [Rx] Ipratropium/Albuterol Neb [Duoneb] 3 ml IH [id number] PRN #0 inhsol 11/06/16 [Rx] Levofloxacin [Levaquin] 750 mg PO DAILY #1 tablet 11/06/16 [Rx] Mirtazapine [Remeron] 15 mg PO HS tablet 11/06/16 [Rx] Nicotine Patch [Nicoderm] 21 mg TD DAILY #0 patch.td24 11/06/16 [Rx] Nitroglycerin 0.4 mg SL Q5MIN PRN #0 tab.subl 11/06/16 [Rx] Thiamine (B-1) [Vitamin B-1] 100 mg PO DAILY tablet 11/06/16 [Rx] Vitamin B Complex/Vit C/Vit E [Stresstab] 1 each PO DAILY tablet 11/06/16 [Rx] hydrOXYzine pamoate [HydrOXYzine Pamoate] 50 mg PO TID PRN #0 capsule 11/06/16 [ Rx] Allergies morphine Allergy (Verified 10/24/16 11:36) Hallucinating Penicillins Allergy (Verified 10/24/16 11:36) Blister Review of Systems Psychiatric: Reports: depression, suicidal ideation, hopelessness Mental Status Exam Patient orientation: Yes Person, Yes Time, Yes Place Level of alertness: Alert, Sedated Patient appearance: Appropriate, Well Groomed, Obese Behavior: calm, cooperative, tearful Psychomotor activity: Slowed Eye contact: Minimal Contact Mood description: Depressed, Irritable Affect description: congruent with mood, constricted, dysphoric Speech pattern: Normal rate, Normal rhythm, Normal tone, Slowed Speech volume: Normal Thought process: Linear, Goal Oriented, Slowed Thinking Thought content: Yes Suicidal ideation, No Homicidal ideation, No Overt delusions Perceptual disturbances: No Auditory hallucinations, No Visual hallucinations Attention span: Capable of Focused Attention Memory description: Grossly Intact Patient reliability: Questionable Historian Intelligence estimate: Average Judgment: Limited Insight: Partial Results - Vital Signs Vital signs: Temp Pulse Resp BP 97.5 F L 93 16 132/89 11/07/16 09:00 11/07/16 09:00 11/07/16 09:00 11/07/16 09:00 Assessment and Plan (1) Severe recurrent major depression without psychotic features Current visit: Yes Status: Acute Plan: Admit inpatient for safety and stabilization, Close observation, Suicide Precautions per unit protocol, Encourage participation in unit milieu, Group Therapy, Monitor sleep, Monitor appetite Additional Plan: Restarts patient medication including mirtazapine and citalopram and will continue to monitor. Risks, benefits, side effects, alternatives discussed w/pt: Yes Patient agreeable to treatment: Yes (2) Alcohol dependence Current visit: Yes Status: Acute Plan: Admit inpatient for safety and stabilization, Close observation, Suicide Precautions per unit protocol, Encourage participation in unit milieu, Group Therapy, Monitor sleep, Monitor appetite Qualifiers: Substance use status: uncomplicated Qualified Code(s): F10.20 - Alcohol dependence, uncomplicated
[2016-11-07] MEDS: hydrOXYzine pamoate 25 MG CAPSULE PO PRN ×2 (17:57→22:15)
[2016-11-07] MEDS: Mirtazapine 15 MG TABLET PO SCH (20:23)
[2016-11-07] MEDS: Acetaminophen 325 MG TABLET PO PRN (20:23)
[2016-11-08] MEDS: *HR* HYDROcodone/Acet 10/325 mg TABLET PO PRN ×3 (05:27→18:00)
[2016-11-08] MEDS: hydrOXYzine pamoate 25 MG CAPSULE PO PRN ×2 (05:32→12:18)
[2016-11-08] MEDS: Tiotropium 18 MCG inhalation IH SCH (08:45)
[2016-11-08] MEDS: Gabapentin 300 MG CAPSULE PO SCH ×2 (08:45→20:33)
[2016-11-08] MEDS: Aspirin Enteric Coated 81 MG Tablet PO SCH (08:46)
[2016-11-08] MEDS: Metoprolol XL (24 HR) Succ 50 MG TAB.ER.24H PO SCH (08:46)
[2016-11-08] MEDS: Nicotine 21 MG PATCH.TD24 TD SCH (08:46)
[2016-11-08] MEDS: Vitamin B Complex/Vit C/Vit E 1 EACH TABLET PO SCH (08:46)
[2016-11-08] MEDS: Thiamine (B-1) 100 MG TABLET PO SCH (08:46)
[2016-11-08] MEDS: Folic Acid 1 MG TABLET PO SCH (08:46)
[2016-11-08] MEDS: levoFLOXacin 750 MG TABLET PO SCH (08:48)
[2016-11-08] MEDS: Fluticasone Propionate Nasal 50 MCG/SPRAY BOTTLE NS SCH ×2 (08:49→20:40)
--- NOTE | 2016-11-08 15:45 | Psychiatry Progress Note ---
Date of Encounter: 11/08/16 Time of Encounter: 15:36 Subjective Interval history: Patient seen for follow-up. Staff report she continued to be focused on pain medication and keep a negative state of mind. he continue to endorse suicidal ideation and not participating in activities. Review of Systems Psychiatric: Reports: depression, suicidal ideation, hopelessness Objective: Exam Patient orientation: Yes Person, Yes Time, Yes Place Level of alertness: Alert Patient appearance: Appropriate, Well Groomed, Obese Behavior: calm, cooperative, guarded Psychomotor activity: Slowed Eye contact: Minimal Contact Mood description: Depressed, Irritable Affect description: congruent with mood, constricted Speech pattern: Normal rate, Normal rhythm, Normal tone Speech volume: Normal Thought process: Linear, Goal Oriented Thought content: Yes Suicidal ideation, Yes Homicidal ideation, No Overt delusions Perceptual disturbances: No Auditory hallucinations, No Visual hallucinations Judgment: Fair Insight: Partial Results - Vital Signs Vital Signs: Temp Pulse Resp BP 97.0 F L 81 16 98/58 11/08/16 08:35 11/08/16 08:35 11/08/16 08:35 11/08/16 08:35 Assessment and Plan (1) Severe recurrent major depression without psychotic features Current visit: Yes Status: Acute Plan: Continue hospitalization, Close observation, Suicide Precautions per unit protocol, Encourage participation in unit milieu, Group Therapy, Monitor sleep, Monitor appetite Additional Plan: Will add Cymbalta 60 mg daily for depression. Benefit side effects were discussed patient is agreeable and will start Risks, benefits, side effects, alternatives discussed w/pt: Yes Patient agreeable to treatment: Yes (2) Alcohol dependence Current visit: Yes Status: Acute Plan: Continue hospitalization, Close observation, Suicide Precautions per unit protocol, Encourage participation in unit milieu, Group Therapy, Monitor sleep, Monitor appetite Qualifiers: Substance use status: uncomplicated Qualified Code(s): F10.20 - Alcohol dependence, uncomplicated Consult Discharge Plan - Plan Referrals: [facility] [Outside] - 11/16/16 11:15 am (The above appointment is with Dr Vargas.) [facility] [Outside] - 11/21/16 1:00 pm (The above appointment is with Yen Fregoso. When you come to your first appointment, you will have an orientation to the agency and you will meet with a counselor. Please bring the following with you to your first visit to the clinic: 1) proof of household income (two consecutive pay stubs, social security award letter, bank statement, statement letter from [facility], child support statement, IRS 1040 or W2 form, or a statement from the person who financially supports you stating they help provide for your basic needs), 2) proof of residency (drivers license , a piece of mail showing your address, a statement from person you live with verifying you live at their address), 3) your social security card, 4) photo ID , 5) your insurance card (if you have commercial insurance you must call to obtain a prior authorization number before you arrive to your first appointment ) and 6) if you do not have insurance but have applied for Medicaid, please bring verification you have applied. This is the first available appointment. You may contact the office regularly to check for cancellations that may allow you to be seen sooner. )
[2016-11-08] MEDS: hydrOXYzine pamoate 25 MG CAPSULE PO SCH ×2 (17:34→20:33)
[2016-11-08] MEDS: Acetaminophen 325 MG TABLET PO PRN (20:32)
[2016-11-08] MEDS: Mirtazapine 15 MG TABLET PO SCH (20:34)
[2016-11-09] MEDS: *HR* HYDROcodone/Acet 10/325 mg TABLET PO PRN ×4 (02:34→20:35)
[2016-11-09] MEDS: Vitamin B Complex/Vit C/Vit E 1 EACH TABLET PO SCH (08:22)
[2016-11-09] MEDS: Gabapentin 300 MG CAPSULE PO SCH ×2 (08:23→20:34)
[2016-11-09] MEDS: levoFLOXacin 750 MG TABLET PO SCH (08:24)
[2016-11-09] MEDS: Thiamine (B-1) 100 MG TABLET PO SCH (08:24)
[2016-11-09] MEDS: Folic Acid 1 MG TABLET PO SCH (08:24)
[2016-11-09] MEDS: Aspirin Enteric Coated 81 MG Tablet PO SCH (08:25)
[2016-11-09] MEDS: hydrOXYzine pamoate 25 MG CAPSULE PO SCH ×4 (08:25→20:34)
[2016-11-09] MEDS: Nicotine 21 MG PATCH.TD24 TD SCH (08:25)
[2016-11-09] MEDS: Metoprolol XL (24 HR) Succ 50 MG TAB.ER.24H PO SCH (08:25)
[2016-11-09] MEDS: Tiotropium 18 MCG inhalation IH SCH (08:26)
[2016-11-09] MEDS: Fluticasone Propionate Nasal 50 MCG/SPRAY BOTTLE NS SCH ×2 (08:26→20:44)
--- NOTE | 2016-11-09 11:25 | Psychiatry Progress Note ---
Date of Encounter: 11/09/16 Time of Encounter: 11:21 Subjective Interval history: Patient is here for follow-up. Staff report he continued to be med seeking and passive and not participating in any activities. He is focused and preoccupied with many issues including his disability, housing and pain medication and insurance issues. His medication were reviewed Cymbalta was added to improve his symptoms of depression. Patient does not acknowledge any improvements unless his demands are satisfied. He decided to sign in voluntarily since his 72 hour hold today. continued to endorse suicidal ideation. Review of Systems Psychiatric: Reports: depression, suicidal ideation, hopelessness Objective: Exam Patient orientation: Yes Person, Yes Time, Yes Place Level of alertness: Alert Patient appearance: Appropriate, Well Groomed Behavior: calm, cooperative, guarded Psychomotor activity: Slowed Eye contact: Maintains Eye Contact Mood description: Euthymic/stable, Depressed Affect description: congruent with mood, constricted Speech pattern: Normal rate, Normal rhythm, Normal tone, Limited Speech volume: Normal Thought process: Linear, Goal Oriented Thought content: Yes Suicidal ideation, Yes Homicidal ideation, No Overt delusions Perceptual disturbances: No Auditory hallucinations, No Visual hallucinations Judgment: Fair Insight: Partial Results - Vital Signs Vital Signs: Temp Pulse Resp BP 97.7 F 88 18 142/92 11/09/16 09:00 11/09/16 09:00 11/09/16 09:00 11/09/16 09:00 Assessment and Plan (1) Severe recurrent major depression without psychotic features Current visit: Yes Status: Acute Plan: Continue hospitalization, Close observation, Suicide Precautions per unit protocol, Encourage participation in unit milieu, Group Therapy, Monitor sleep, Monitor appetite Risks, benefits, side effects, alternatives discussed w/pt: Yes Patient agreeable to treatment: Yes (2) Alcohol dependence Current visit: Yes Status: Acute Plan: Continue hospitalization, Close observation, Suicide Precautions per unit protocol, Encourage participation in unit milieu, Group Therapy, Monitor sleep, Monitor appetite Qualifiers: Substance use status: uncomplicated Qualified Code(s): F10.20 - Alcohol dependence, uncomplicated Consult Discharge Plan - Plan Referrals: [facility] [Outside] - 11/16/16 11:15 am (The above appointment is with Dr Vargas.) [facility] [Outside] - 11/21/16 1:00 pm (The above appointment is with Yen Fregoso. When you come to your first appointment, you will have an orientation to the agency and you will meet with a counselor. Please bring the following with you to your first visit to the clinic: 1) proof of household income (two consecutive pay stubs, social security award letter, bank statement, statement letter from [facility], child support statement, IRS 1040 or W2 form, or a statement from the person who financially supports you stating they help provide for your basic needs), 2) proof of residency (drivers license , a piece of mail showing your address, a statement from person you live with verifying you live at their address), 3) your social security card, 4) photo ID , 5) your insurance card (if you have commercial insurance you must call to obtain a prior authorization number before you arrive to your first appointment ) and 6) if you do not have insurance but have applied for Medicaid, please bring verification you have applied. This is the first available appointment. You may contact the office regularly to check for cancellations that may allow you to be seen sooner. )
[2016-11-09] MEDS: Mirtazapine 15 MG TABLET PO SCH (20:34)
[2016-11-10] MEDS: *HR* HYDROcodone/Acet 10/325 mg TABLET PO PRN ×4 (03:54→21:57)
[2016-11-10] MEDS: Gabapentin 300 MG CAPSULE PO SCH ×2 (08:59→21:58)
[2016-11-10] MEDS: hydrOXYzine pamoate 25 MG CAPSULE PO SCH ×4 (08:59→21:57)
[2016-11-10] MEDS: Folic Acid 1 MG TABLET PO SCH (09:00)
[2016-11-10] MEDS: Aspirin Enteric Coated 81 MG Tablet PO SCH (09:00)
[2016-11-10] MEDS: Vitamin B Complex/Vit C/Vit E 1 EACH TABLET PO SCH (09:00)
[2016-11-10] MEDS: levoFLOXacin 750 MG TABLET PO SCH (09:01)
[2016-11-10] MEDS: Thiamine (B-1) 100 MG TABLET PO SCH (09:01)
[2016-11-10] MEDS: Metoprolol XL (24 HR) Succ 50 MG TAB.ER.24H PO SCH (09:02)
[2016-11-10] MEDS: Nicotine 21 MG PATCH.TD24 TD SCH (09:02)
[2016-11-10] MEDS: Fluticasone Propionate Nasal 50 MCG/SPRAY BOTTLE NS SCH ×3 (09:03→22:02)
[2016-11-10] MEDS: Tiotropium 18 MCG inhalation IH SCH (09:09)
--- NOTE | 2016-11-10 14:28 | Psychiatry Progress Note ---
Date of Encounter: 11/10/16 Time of Encounter: 14:30 Subjective Interval history: Patient is seen for follow-up. He will continue to endorse suicidal or homicidal ideation without plan. He continued to be pain medication seeking. He reports his sleep improved and slept about 5 hours a night in addition to taking naps. His affect is brighter and reported to be out of his room. Review of Systems Psychiatric: Reports: depression, suicidal ideation, hopelessness Objective: Exam Patient orientation: Yes Person, Yes Time, Yes Place Level of alertness: Alert Patient appearance: Appropriate, Well Groomed, Obese Behavior: calm, cooperative, withdrawn Psychomotor activity: Normal Eye contact: Maintains Eye Contact Mood description: Euthymic/stable, Depressed, Irritable Affect description: congruent with mood, constricted Speech pattern: Normal rate, Normal rhythm, Normal tone Speech volume: Normal Thought process: Linear, Goal Oriented Thought content: No Suicidal ideation, No Homicidal ideation, No Overt delusions Perceptual disturbances: No Auditory hallucinations, No Visual hallucinations Judgment: Fair Insight: Partial Results - Vital Signs Vital Signs: Temp Pulse Resp BP 97.2 F L 84 20 129/88 11/10/16 09:00 11/10/16 09:00 11/10/16 09:00 11/10/16 09:00 Assessment and Plan (1) Severe recurrent major depression without psychotic features Current visit: Yes Status: Acute Plan: Continue hospitalization, Close observation, Suicide Precautions per unit protocol, Encourage participation in unit milieu, Group Therapy, Monitor sleep, Monitor appetite Risks, benefits, side effects, alternatives discussed w/pt: Yes Patient agreeable to treatment: Yes (2) Alcohol dependence Current visit: Yes Status: Acute Plan: Continue hospitalization, Close observation, Suicide Precautions per unit protocol, Encourage participation in unit milieu, Group Therapy, Monitor sleep, Monitor appetite Qualifiers: Substance use status: uncomplicated Qualified Code(s): F10.20 - Alcohol dependence, uncomplicated Consult Discharge Plan - Plan Referrals: [facility] [Outside] - 11/16/16 11:15 am (The above appointment is with Dr Vargas.) [facility] [Outside] - 11/21/16 1:00 pm (The above appointment is with Yen Fregoso. When you come to your first appointment, you will have an orientation to the agency and you will meet with a counselor. Please bring the following with you to your first visit to the clinic: 1) proof of household income (two consecutive pay stubs, social security award letter, bank statement, statement letter from [facility], child support statement, IRS 1040 or W2 form, or a statement from the person who financially supports you stating they help provide for your basic needs), 2) proof of residency (drivers license , a piece of mail showing your address, a statement from person you live with verifying you live at their address), 3) your social security card, 4) photo ID , 5) your insurance card (if you have commercial insurance you must call to obtain a prior authorization number before you arrive to your first appointment ) and 6) if you do not have insurance but have applied for Medicaid, please bring verification you have applied. This is the first available appointment. You may contact the office regularly to check for cancellations that may allow you to be seen sooner. )
[2016-11-10] MEDS: Mirtazapine 15 MG TABLET PO SCH (21:58)
[2016-11-11] MEDS: *HR* HYDROcodone/Acet 10/325 mg TABLET PO PRN ×4 (04:00→21:18)
[2016-11-11] MEDS: Nicotine 21 MG PATCH.TD24 TD SCH (09:03)
[2016-11-11] MEDS: Thiamine (B-1) 100 MG TABLET PO SCH (09:04)
[2016-11-11] MEDS: levoFLOXacin 750 MG TABLET PO SCH (09:04)
[2016-11-11] MEDS: Vitamin B Complex/Vit C/Vit E 1 EACH TABLET PO SCH (09:04)
[2016-11-11] MEDS: Metoprolol XL (24 HR) Succ 50 MG TAB.ER.24H PO SCH (09:04)
[2016-11-11] MEDS: Aspirin Enteric Coated 81 MG Tablet PO SCH (09:05)
[2016-11-11] MEDS: Gabapentin 300 MG CAPSULE PO SCH ×2 (09:05→21:18)
[2016-11-11] MEDS: Folic Acid 1 MG TABLET PO SCH (09:05)
[2016-11-11] MEDS: hydrOXYzine pamoate 25 MG CAPSULE PO SCH ×4 (09:05→21:19)
[2016-11-11] MEDS: Fluticasone Propionate Nasal 50 MCG/SPRAY BOTTLE NS SCH ×2 (09:07→21:44)
[2016-11-11] MEDS: Tiotropium 18 MCG inhalation IH SCH (10:00)
--- NOTE | 2016-11-11 11:44 | Psychiatry Progress Note ---
Date of Encounter: 11/11/16 Time of Encounter: 11:36 Subjective Interval history: Client reports he was admitted medically for chest pain and ended up on 1A after endorsing SI. Reports SI is better but that he still has feelings of wanting to hurts others. Feels ready to snap and he "pities the person" who is in his way when that happens. Does not feel safe being discharged. "I don't want to hurt nobody. I don't want to hurt myself." However, feels at risk to do these things if discharged. Seeking pain meds. Discussed the need to follow up with a pain clinic for the type of management he is seeking. Wants to do this and believes he is currently being referred but does not know where he is in the referral process. Wants to be "fixed" prior to discuss. Discussed how he will not be "fixed" but that he should be in a position to manage his symptoms better. Discussed how safety is the priority. If pain control is his biggest issue he may struggle with depressive symptoms until he feels better equipped to cope with the pain. Review of Systems Constitutional: Reports: weakness. Denies: fever, chills, weight change Eyes: Denies: eye pain, vision change Ears, Nose, Throat: Denies: ear pain, throat pain, dental pain, hearing loss, congestion Cardiovascular: Reports: chest pain. Denies: palpitations, dyspnea on exertion Respiratory: Denies: cough, dyspnea, wheezes Gastrointestinal: Denies: abdominal pain, nausea, vomiting, diarrhea, constipation Musculoskeletal: Reports: back pain, myalgia. Denies: joint swelling, joint pain Neurological: Reports: weakness. Denies: headache, numbness, memory loss Psychiatric: Reports: depression, suicidal ideation, hopelessness Objective: Exam Patient orientation: Yes Person, Yes Time, Yes Place Level of alertness: Alert Patient appearance: Unkempt Behavior: calm Psychomotor activity: Slowed Eye contact: Maintains Eye Contact Mood description: Angry, Depressed, Irritable Affect description: congruent with mood Speech pattern: Normal rate, Normal rhythm, Normal tone Speech volume: Normal Thought process: Linear Thought content: Yes Suicidal ideation, Yes Homicidal ideation Perceptual disturbances: No Auditory hallucinations, No Visual hallucinations Judgment: Limited Insight: Minimal Results - Vital Signs Vital Signs: Temp Pulse Resp BP 97.6 F 80 18 136/87 11/11/16 09:00 11/11/16 09:00 11/11/16 09:00 11/11/16 09:00 Assessment and Plan (1) Suicidal ideation Current visit: No Status: Acute Plan: Continue hospitalization, Close observation, Suicide Precautions per unit protocol, Encourage participation in unit milieu, Group Therapy, Monitor sleep, Monitor appetite Risks, benefits, side effects, alternatives discussed w/pt: Yes Patient agreeable to treatment: Yes Consult Discharge Plan - Plan Referrals: [facility] [Outside] - 11/16/16 11:15 am (The above appointment is with Dr Vargas.) [facility] 1:00 pm (The above appointment is with Yen Fregoso. When you come to your first appointment, you will have an orientation to the agency and you will meet with a counselor. Please bring the following with you to your first visit to the clinic: 1) proof of household income (two consecutive pay stubs, social security award letter, bank statement, statement letter from [facility], child support statement, IRS 1040 or W2 form, or a statement from the person who financially supports you stating they help provide for your basic needs), 2) proof of residency (drivers license , a piece of mail showing your address, a statement from person you live with verifying you live at their address), 3) your social security card, 4) photo ID , 5) your insurance card (if you have commercial insurance you must call to obtain a prior authorization number before you arrive to your first appointment ) and 6) if you do not have insurance but have applied for Medicaid, please bring verification you have applied. This is the first available appointment. You may contact the office regularly to check for cancellations that may allow you to be seen sooner. )
[2016-11-11] MEDS: Mirtazapine 15 MG TABLET PO SCH (21:19)
[2016-11-12] MEDS: *HR* HYDROcodone/Acet 10/325 mg TABLET PO PRN ×3 (07:28→19:56)
[2016-11-12] MEDS: Nicotine 21 MG PATCH.TD24 TD SCH (08:59)
[2016-11-12] MEDS: Tiotropium 18 MCG inhalation IH SCH (09:00)
[2016-11-12] MEDS: hydrOXYzine pamoate 25 MG CAPSULE PO SCH ×4 (09:01→19:56)
[2016-11-12] MEDS: Gabapentin 300 MG CAPSULE PO SCH ×2 (09:01→19:56)
[2016-11-12] MEDS: Aspirin Enteric Coated 81 MG Tablet PO SCH (09:01)
[2016-11-12] MEDS: Vitamin B Complex/Vit C/Vit E 1 EACH TABLET PO SCH (09:01)
[2016-11-12] MEDS: levoFLOXacin 750 MG TABLET PO SCH (09:02)
[2016-11-12] MEDS: Metoprolol XL (24 HR) Succ 50 MG TAB.ER.24H PO SCH (09:02)
[2016-11-12] MEDS: Thiamine (B-1) 100 MG TABLET PO SCH (09:02)
[2016-11-12] MEDS: Folic Acid 1 MG TABLET PO SCH (09:02)
[2016-11-12] MEDS: Fluticasone Propionate Nasal 50 MCG/SPRAY BOTTLE NS SCH ×2 (09:05→21:01)
--- NOTE | 2016-11-12 11:33 | Psychiatry Progress Note ---
Date of Encounter: 11/12/16 Time of Encounter: 11:24 Subjective Interval history: Client has excessive face peeling today. Reports it started yesterday morning after speaking with this customs entry writer. Has progressed up to scalp. No where else on body. Claims it is "irritating" but not painful. Feels it is due to medications. Reports it happened after he was last discharged from here and that he was seen in the ER for it-reports ER discharged him home and told him to follow up as an outpatient. He voluntarily stopped all of his medications believing the skin condition was medication related. Cleared up after meds stopped. Now it is back. Currently taking what was prescribed last time so he may be having some kind of allergic reaction. 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 However, in order to be safe need to stop offending agent. Suspect Cymbalta as this was a new medication the last time he was here and he is now being prescribed it again. Client is still depressed so it is unfortunate that one of his antidepressants needs stopped. However, it is better to stop it and make sure he is medically safe. May need to evaluate for an additional antidepressant once cause of peeling is understood. Review of Systems Constitutional: Denies: fever, chills, weakness, weight change Eyes: Denies: eye pain, vision change Ears, Nose, Throat: Denies: ear pain, throat pain, dental pain, hearing loss, congestion Cardiovascular: Reports: edema. Denies: chest pain, palpitations, dyspnea on exertion Respiratory: Denies: cough, dyspnea, wheezes Gastrointestinal: Denies: abdominal pain, nausea, vomiting, diarrhea, constipation Musculoskeletal: Reports: joint pain, myalgia Neurological: Reports: weakness, other. Denies: headache, numbness, memory loss Psychiatric: Reports: depression, suicidal ideation, hopelessness Objective: Exam Patient orientation: Yes Person, Yes Time, Yes Place Level of alertness: Alert Patient appearance: Appropriate Behavior: calm, cooperative Psychomotor activity: Slowed Eye contact: Maintains Eye Contact Mood description: Depressed Affect description: congruent with mood Speech pattern: Normal rate, Normal rhythm, Normal tone Speech volume: Normal Thought process: Linear Thought content: Yes Suicidal ideation Perceptual disturbances: No Auditory hallucinations, No Visual hallucinations Judgment: Limited Insight: Partial Results - Vital Signs Vital Signs: Temp Pulse Resp BP 97.3 F L 83 16 120/76 11/12/16 08:32 11/12/16 08:32 11/12/16 08:32 11/12/16 08:32 Assessment and Plan (1) Suicidal ideation Current visit: No Status: Acute Plan: Continue hospitalization, Close observation, Suicide Precautions per unit protocol, Encourage participation in unit milieu, Group Therapy, Monitor sleep, Monitor appetite Risks, benefits, side effects, alternatives discussed w/pt: Yes Patient agreeable to treatment: Yes Consult Discharge Plan - Plan Referrals: [facility] [Outside] - 11/16/16 11:15 am (The above appointment is with Dr Vargas.) [facility]/21/16 1:00 pm (The above appointment is with Yen Fregoso. When you come to your first appointment, you will have an orientation to the agency and you will meet with a counselor. Please bring the following with you to your first visit to the clinic: 1) proof of household income (two consecutive pay stubs, social security award letter, bank statement, statement letter from [facility], child support statement, IRS 1040 or W2 form, or a statement from the person who financially supports you stating they help provide for your basic needs), 2) proof of residency (drivers license , a piece of mail showing your address, a statement from person you live with verifying you live at their address), 3) your social security card, 4) photo ID , 5) your insurance card (if you have commercial insurance you must call to obtain a prior authorization number before you arrive to your first appointment ) and 6) if you do not have insurance but have applied for Medicaid, please bring verification you have applied. This is the first available appointment. You may contact the office regularly to check for cancellations that may allow you to be seen sooner. )
[2016-11-12] MEDS: Mirtazapine 15 MG TABLET PO SCH (19:56)
[2016-11-13] MEDS: *HR* HYDROcodone/Acet 10/325 mg TABLET PO PRN ×4 (02:55→21:48)
[2016-11-13] MEDS: Acetaminophen 325 MG TABLET PO PRN (09:21)
[2016-11-13] MEDS: Metoprolol XL (24 HR) Succ 50 MG TAB.ER.24H PO SCH (09:21)
[2016-11-13] MEDS: Thiamine (B-1) 100 MG TABLET PO SCH (09:21)
[2016-11-13] MEDS: Gabapentin 300 MG CAPSULE PO SCH ×2 (09:21→20:48)
[2016-11-13] MEDS: hydrOXYzine pamoate 25 MG CAPSULE PO SCH ×4 (09:23→20:47)
[2016-11-13] MEDS: levoFLOXacin 750 MG TABLET PO SCH (09:24)
[2016-11-13] MEDS: Aspirin Enteric Coated 81 MG Tablet PO SCH (09:24)
[2016-11-13] MEDS: Nicotine 21 MG PATCH.TD24 TD SCH (09:31)
[2016-11-13] MEDS: Fluticasone Propionate Nasal 50 MCG/SPRAY BOTTLE NS SCH ×2 (09:31→21:36)
[2016-11-13] MEDS: Folic Acid 1 MG TABLET PO SCH (09:31)
--- NOTE | 2016-11-13 12:22 | Psychiatry Progress Note ---
Date of Encounter: 11/13/16 Time of Encounter: 12:15 Subjective Interval history: Client is still depressed but overall seems to be in better spirits. Cymbalta stopped yesterday. Skin is still peeling excessively but it may take some time to improve if Cymbalta indeed the cause. Would expect an allergic reaction to be all over his body as opposed to isolated to his face but it is coincidental that this reaction has happened twice shortly after the addition of Cymbalta each time. Client refuses to consider discharge until source of peeling identified. He is clearly alarmed by the reaction as he went to the ER after it happened the last time and immediately stopped all of his medications when they were unable to determine the source of the problem. Spoke with social media designer. Client is scheduled for a follow-up appointment at the [facility] this . Purpose of the appointment is to discuss referral options for pain management. Ultimately this is what patient wants and likely needs. Will ensure he is discharged to that appointment if not before. Review of Systems Constitutional: Denies: fever, chills, weakness, weight change Eyes: Denies: eye pain, vision change Ears, Nose, Throat: Denies: ear pain, throat pain, dental pain, hearing loss, congestion Cardiovascular: Reports: edema. Denies: chest pain, palpitations Respiratory: Denies: cough, dyspnea, wheezes Gastrointestinal: Denies: abdominal pain, nausea, vomiting, diarrhea, constipation Musculoskeletal: Reports: joint pain, myalgia Neurological: Reports: other Psychiatric: Reports: depression, suicidal ideation, hopelessness Objective: Exam Patient orientation: Yes Person, Yes Time, Yes Place Level of alertness: Alert Patient appearance: Appropriate Behavior: calm, cooperative Psychomotor activity: Slowed Eye contact: Maintains Eye Contact Mood description: Depressed, Irritable Affect description: congruent with mood Speech pattern: Normal rate, Normal rhythm, Normal tone Speech volume: Normal Thought process: Linear, Goal Oriented Thought content: Yes Suicidal ideation, Yes Homicidal ideation Perceptual disturbances: No Auditory hallucinations, No Visual hallucinations Judgment: Limited Insight: Minimal Results - Vital Signs Vital Signs: Temp Pulse Resp BP 98.5 F 77 18 119/85 11/13/16 08:32 11/13/16 08:32 11/13/16 08:32 11/13/16 08:32 Assessment and Plan (1) Suicidal ideation Current visit: No Status: Acute Plan: Continue hospitalization, Close observation, Suicide Precautions per unit protocol, Encourage participation in unit milieu, Group Therapy, Monitor sleep, Monitor appetite Risks, benefits, side effects, alternatives discussed w/pt: Yes Patient agreeable to treatment: Yes Consult Discharge Plan - Plan Referrals: [facility] [Outside] - 11/16/16 11:15 am (The above appointment is with Dr Vargas.) [facility] [Outside] - 11/21/16 1:00 pm (The above appointment is with Yen Fregoso. When you come to your first appointment, you will have an orientation to the agency and you will meet with a counselor. Please bring the following with you to your first visit to the clinic: 1) proof of household income (two consecutive pay stubs, social security award letter, bank statement, statement letter from [facility], child support statement, IRS 1040 or W2 form, or a statement from the person who financially supports you stating they help provide for your basic needs), 2) proof of residency (drivers license , a piece of mail showing your address, a statement from person you live with verifying you live at their address), 3) your social security card, 4) photo ID , 5) your insurance card (if you have commercial insurance you must call to obtain a prior authorization number before you arrive to your first appointment ) and 6) if you do not have insurance but have applied for Medicaid, please bring verification you have applied. This is the first available appointment. You may contact the office regularly to check for cancellations that may allow you to be seen sooner. )
[2016-11-13] MEDS: Tiotropium 18 MCG inhalation IH SCH (14:18)
[2016-11-13] MEDS: Vitamin B Complex/Vit C/Vit E 1 EACH TABLET PO SCH (14:18)
[2016-11-13] MEDS: Mirtazapine 15 MG TABLET PO SCH (20:47)
[2016-11-14] MEDS: *HR* HYDROcodone/Acet 10/325 mg TABLET PO PRN ×4 (03:49→21:08)
[2016-11-14] MEDS: Fluticasone Propionate Nasal 50 MCG/SPRAY BOTTLE NS SCH ×2 (09:09→21:12)
[2016-11-14] MEDS: Nicotine 21 MG PATCH.TD24 TD SCH (09:11)
[2016-11-14] MEDS: Folic Acid 1 MG TABLET PO SCH (09:12)
[2016-11-14] MEDS: Gabapentin 300 MG CAPSULE PO SCH ×2 (09:12→21:09)
[2016-11-14] MEDS: Thiamine (B-1) 100 MG TABLET PO SCH (09:12)
[2016-11-14] MEDS: Tiotropium 18 MCG inhalation IH SCH (09:12)
[2016-11-14] MEDS: hydrOXYzine pamoate 25 MG CAPSULE PO SCH ×4 (09:13→21:09)
[2016-11-14] MEDS: Aspirin Enteric Coated 81 MG Tablet PO SCH (09:13)
[2016-11-14] MEDS: Vitamin B Complex/Vit C/Vit E 1 EACH TABLET PO SCH (09:13)
[2016-11-14] MEDS: levoFLOXacin 750 MG TABLET PO SCH (09:14)
[2016-11-14] MEDS: Metoprolol XL (24 HR) Succ 50 MG TAB.ER.24H PO SCH (09:14)
--- NOTE | 2016-11-14 13:08 | Psychiatry Progress Note ---
Date of Encounter: 11/14/16 Time of Encounter: 13:02 Subjective Interval history: Face looks better. Still has peeling but less dramatic and some areas look improved. Suspect Cymbalta was the cause. Client reports his SI is better but still has vague HI. Claims the heat was turned up in his room last night and he did not sleep well. Irritability may be driving ongoing HI. Still focused on his pain. Discussed how pain is likely fueling his depression and he really needs managed by a pain clinic. Has an appointment scheduled with [facility] on . Would like to discharge client to that appointment so he can get the referrals he needs. Will not replace the Cymbalta at this time. Client is nervous about trying new antidepressants given what happened the last time and he is close enough to discharge it would be better to follow up as an outpatient. Review of Systems Constitutional: Denies: fever, chills, weakness, weight change Eyes: Denies: eye pain, vision change Ears, Nose, Throat: Denies: ear pain, throat pain, dental pain, hearing loss, congestion Cardiovascular: Reports: edema Respiratory: Denies: cough, dyspnea, wheezes Gastrointestinal: Denies: abdominal pain, nausea, vomiting, diarrhea, constipation Musculoskeletal: Reports: joint pain, myalgia Neurological: Reports: other Psychiatric: Reports: depression, suicidal ideation, hopelessness Objective: Exam Patient orientation: Yes Person, Yes Time, Yes Place Level of alertness: Alert Patient appearance: Appropriate Behavior: calm, cooperative Psychomotor activity: Slowed Eye contact: Maintains Eye Contact Mood description: Angry, Depressed Affect description: congruent with mood Speech pattern: Normal rate, Normal rhythm, Normal tone Speech volume: Normal Thought process: Linear, Goal Oriented Thought content: No Suicidal ideation, Yes Homicidal ideation, No Overt delusions Perceptual disturbances: No Auditory hallucinations, No Visual hallucinations Judgment: Limited Insight: Minimal Results - Vital Signs Vital Signs: Temp Pulse Resp BP 97 F L 83 16 140/90 11/14/16 08:47 11/14/16 08:47 11/14/16 08:47 11/14/16 08:47 Assessment and Plan (1) Suicidal ideation Current visit: No Status: Acute Plan: Continue hospitalization, Close observation, Suicide Precautions per unit protocol, Encourage participation in unit milieu, Group Therapy, Monitor sleep, Monitor appetite Risks, benefits, side effects, alternatives discussed w/pt: Yes Patient agreeable to treatment: Yes Consult Discharge Plan - Plan Referrals: [facility] [Outside] - 11/16/16 11:15 am (The above appointment is with Dr Vargas.) [facility] - 11/21/16 1:00 pm (The above appointment is with Yen Fregoso. When you come to your first appointment, you will have an orientation to the agency and you will meet with a counselor. Please bring the following with you to your first visit to the clinic: 1) proof of household income (two consecutive pay stubs, social security award letter, bank statement, statement letter from [facility], child support statement, IRS 1040 or W2 form, or a statement from the person who financially supports you stating they help provide for your basic needs), 2) proof of residency (drivers license , a piece of mail showing your address, a statement from person you live with verifying you live at their address), 3) your social security card, 4) photo ID , 5) your insurance card (if you have commercial insurance you must call to obtain a prior authorization number before you arrive to your first appointment ) and 6) if you do not have insurance but have applied for Medicaid, please bring verification you have applied. This is the first available appointment. You may contact the office regularly to check for cancellations that may allow you to be seen sooner. )
[2016-11-14] MEDS: Mirtazapine 15 MG TABLET PO SCH (21:09)
[2016-11-15] MEDS: *HR* HYDROcodone/Acet 10/325 mg TABLET PO PRN ×4 (03:12→21:18)
[2016-11-15] MEDS: Nicotine 21 MG PATCH.TD24 TD SCH (08:48)
[2016-11-15] MEDS: levoFLOXacin 750 MG TABLET PO SCH (08:49)
[2016-11-15] MEDS: Vitamin B Complex/Vit C/Vit E 1 EACH TABLET PO SCH (08:49)
[2016-11-15] MEDS: Folic Acid 1 MG TABLET PO SCH (08:49)
[2016-11-15] MEDS: hydrOXYzine pamoate 25 MG CAPSULE PO SCH ×4 (08:49→21:18)
[2016-11-15] MEDS: Aspirin Enteric Coated 81 MG Tablet PO SCH (08:49)
[2016-11-15] MEDS: Metoprolol XL (24 HR) Succ 50 MG TAB.ER.24H PO SCH (08:49)
[2016-11-15] MEDS: Gabapentin 300 MG CAPSULE PO SCH ×2 (08:49→21:17)
[2016-11-15] MEDS: Thiamine (B-1) 100 MG TABLET PO SCH (08:49)
[2016-11-15] MEDS: Tiotropium 18 MCG inhalation IH SCH (08:50)
[2016-11-15] MEDS: Fluticasone Propionate Nasal 50 MCG/SPRAY BOTTLE NS SCH ×2 (08:52→21:26)
--- NOTE | 2016-11-15 12:48 | Psychiatry Progress Note ---
Date of Encounter: 11/15/16 Time of Encounter: 12:43 Subjective Interval history: Face looks much better. Excessive peeling has stopped. Already healing in most areas. Has developed a rash on chest (several small red bumps over sternal area). Rash does not look the same as the one that appeared on his face and this typewriter ribbon winder suspects no relation. Client follows up with the machine sneller tomorrow and will ask him to look at it. 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 Medication added to his allergy list and patient given a copy of generic and trade names so he knows what to avoid in the future. Mood is definitely brighter today. More animated. Even joking a little bit. Looking forward to medical appointment tomorrow. Plan is to discharge him to that appointment. He is ultimately worried about how he will follow up with appointments given transportation issues and reports he may ultimately need to return to [place] where he has more supports. Review of Systems Constitutional: Denies: fever, chills, weakness, weight change Eyes: Denies: eye pain, vision change Ears, Nose, Throat: Denies: ear pain, throat pain, dental pain, hearing loss, congestion Cardiovascular: Reports: edema Respiratory: Denies: cough, dyspnea, wheezes Gastrointestinal: Denies: abdominal pain, nausea, vomiting, diarrhea, constipation Musculoskeletal: Reports: back pain, joint pain, myalgia Neurological: Reports: numbness, other Psychiatric: Reports: depression, suicidal ideation, hopelessness Objective: Exam Patient orientation: Yes Person, Yes Time, Yes Place Level of alertness: Alert Patient appearance: Appropriate Behavior: calm, cooperative Psychomotor activity: Slowed Eye contact: Maintains Eye Contact Mood description: Euthymic/stable Affect description: congruent with mood Speech pattern: Normal rate, Normal rhythm, Normal tone Speech volume: Normal Thought process: Linear, Goal Oriented Thought content: No Suicidal ideation, No Homicidal ideation, No Overt delusions Perceptual disturbances: No Auditory hallucinations, No Visual hallucinations Judgment: Fair Insight: Partial Results - Vital Signs Vital Signs: Temp Pulse Resp BP 97.4 F L 80 18 112/75 11/15/16 08:52 11/15/16 08:52 11/15/16 08:52 11/15/16 08:52 Assessment and Plan (1) Suicidal ideation Current visit: No Status: Acute Plan: Continue hospitalization, Close observation, Suicide Precautions per unit protocol, Encourage participation in unit milieu, Group Therapy, Monitor sleep, Monitor appetite Risks, benefits, side effects, alternatives discussed w/pt: Yes Patient agreeable to treatment: Yes Consult Discharge Plan - Plan Referrals: [facility] [Outside] - 11/16/16 3:30 pm (The above appointment is with Dr Vargas.) [facility] [Outside] - 11/21/16 1:00 pm (The above appointment is with Yen Fregoso. When you come to your first appointment, you will have an orientation to the agency and you will meet with a counselor. Please bring the following with you to your first visit to the clinic: 1) proof of household income (two consecutive pay stubs, social security award letter, bank statement, statement letter from [facility], child support statement, IRS 1040 or W2 form, or a statement from the person who financially supports you stating they help provide for your basic needs), 2) proof of residency (drivers license , a piece of mail showing your address, a statement from person you live with verifying you live at their address), 3) your social security card, 4) photo ID , 5) your insurance card (if you have commercial insurance you must call to obtain a prior authorization number before you arrive to your first appointment ) and 6) if you do not have insurance but have applied for Medicaid, please bring verification you have applied. This is the first available appointment. You may contact the office regularly to check for cancellations that may allow you to be seen sooner. )
[2016-11-15] MEDS: Mirtazapine 15 MG TABLET PO SCH (21:18)
[2016-11-16] MEDS: *HR* HYDROcodone/Acet 10/325 mg TABLET PO PRN ×2 (02:57→09:06)
[2016-11-16 08:28] VITALS: BP 110/74
[2016-11-16] MEDS: Nicotine 21 MG PATCH.TD24 TD SCH (09:02)
[2016-11-16] MEDS: Tiotropium 18 MCG inhalation IH SCH (09:03)
[2016-11-16] MEDS: Gabapentin 300 MG CAPSULE PO SCH (09:04)
[2016-11-16] MEDS: Aspirin Enteric Coated 81 MG Tablet PO SCH (09:04)
[2016-11-16] MEDS: levoFLOXacin 750 MG TABLET PO SCH (09:05)
[2016-11-16] MEDS: Metoprolol XL (24 HR) Succ 50 MG TAB.ER.24H PO SCH (09:05)
[2016-11-16] MEDS: Vitamin B Complex/Vit C/Vit E 1 EACH TABLET PO SCH (09:05)
[2016-11-16] MEDS: Thiamine (B-1) 100 MG TABLET PO SCH (09:05)
[2016-11-16] MEDS: Fluticasone Propionate Nasal 50 MCG/SPRAY BOTTLE NS SCH (09:06)
[2016-11-16] MEDS: hydrOXYzine pamoate 25 MG CAPSULE PO SCH ×2 (09:06→12:58)
[2016-11-16] MEDS: Folic Acid 1 MG TABLET PO SCH (09:06)
--- NOTE | 2016-11-16 12:28 | Discharge Summary ---
Date of Encounter: 11/16/16 Time of Encounter: 12:21 Diagnosis - Discharge Diagnosis (1) Suicidal ideation Status: Acute Medications - Discharge Medications Prescriptions: Docusate [Colace] 100 mg PO DAILY #30 capsule HYDROcodone/Acet 10/325 mg [[place] 10-325 mg] 1 each PO Q6H PRN #56 tablet PRN Reason: Pain Atorvastatin [Lipitor] 40 mg PO HS #30 tablet 10/04/16 [Rx] Lisinopril [Zestril] 10 mg PO DAILY #30 tablet 10/04/16 [Rx] Metoprolol XL (24 HR) Succ [Toprol Xl] 50 mg PO DAILY #30 tab.er.24h 10/04/16 [ Rx] Tiotropium [place] [Spiriva Respimat] 2 puff IH DAILY #1 mist.inhal 10/04/16 [Rx ] Fluticasone Propionate Nasal [Flonase] 50 mcg NS BID 11/04/16 [History] Aspirin Enteric Coated [Aspirin EC] 81 mg PO DAILY tablet. 11/06/16 [Rx] Citalopram [CeleXA] 10 mg PO DAILY tablet 11/06/16 [Rx] Folic Acid 1 mg PO DAILY tablet 11/06/16 [Rx] Gabapentin [Neurontin] 900 mg PO BID capsule 11/06/16 [Rx] Ipratropium/Albuterol Neb [Duoneb] 3 ml IH [id number] PRN #0 inhsol 11/06/16 [Rx] Mirtazapine [Remeron] 15 mg PO HS tablet 11/06/16 [Rx] Nicotine Patch [Nicoderm] 21 mg TD DAILY #0 patch.td24 11/06/16 [Rx] Nitroglycerin 0.4 mg SL Q5MIN PRN #0 tab.subl 11/06/16 [Rx] Thiamine (B-1) [Vitamin B-1] 100 mg PO DAILY tablet 11/06/16 [Rx] Vitamin B Complex/Vit C/Vit E [Stresstab] 1 each PO DAILY tablet 11/06/16 [Rx] hydrOXYzine pamoate [HydrOXYzine Pamoate] 50 mg PO TID PRN #0 capsule 11/06/16 [ Rx] Aspirin Enteric Coated [Aspirin EC] 81 mg PO DAILY tablet. 11/16/16 [Rx] Docusate [Colace] 100 mg PO DAILY #30 capsule 11/16/16 [Rx] HYDROcodone/Acet 10/325 mg [[place] 10-325 mg] 1 each PO Q6H PRN #56 tablet [Rx] Mirtazapine [Remeron] 15 mg PO HS tablet 11/16/16 [Rx] Allergies morphine Allergy (Verified 10/24/16 11:36) Hallucinating Penicillins Allergy (Verified 10/24/16 11:36) Blister duloxetine [From Cymbalta] Adverse Reaction (Verified 11/13/16 12:42) Rash Provider Date of admission: 11/06/16 17:43 Primary care physician: PCP NO Discharging clinician: Veronika Mantilla Assessment and Plan - Patient/Caregiver Discharge Instructions Activity: resume usual activities as tolerated Diet: low fat, low cholesterol - Follow up Plan Follow up with: [facility] [Outside] - 11/16/16 3:30 pm (The above appointment is with Dr Vargas.) [facility] [Outside] - 12/05/16 3:10 pm (The above appointment is with psychiatrist, Dr. Macedo. You will complete paperwork on arrival at 3 :10pm, and then see the doctor at 3:40pm. [facility] ) will provide transportation to and from this appointment.) [facility] [Outside] - 11/21/16 1:00 pm (The above appointment is with Yen Fregoso. When you come to your first appointment, you will have an orientation to the agency and you will meet with a counselor. Please bring the following with you to your first visit to the clinic: 1) proof of household income (a statement from the person who financially supports you stating they help provide for your basic needs), 2) proof of residency (a statement from person you live with verifying you live at their address), 3) your social security card, 4) photo ID, 5) your insurance card. [facility] ([phone]) will provide transportation to and from this appointment.) Functional capacity at discharge: independent ambulation Overall status at discharge: Stable Disposition: Home, Self-Care Hospital Course Hospital course: Mr. Castro is a 46 year old male who was admitted secondary to SI. Discharged from this facility in September. Cymbalta had been started at that time. Tolerated medication while inpatient but after he returned home he developed a peeling rash on his face. He presented to the ER but the rash was not felt to be medication related. He was discharged home but client was fearful and stopped all of his medications. His rash eventually healed. However, without proper treatment he became depressed again. He presented to the hospital this time with chest pain but once medically cleared he was transferred to due to suicidal thinking. He was once again started on the Cymbalta. After a few days the rash reappeared-looked like a [place] reaction but it was isolated to his face. Cymbalta was stopped and the rash healed again but his hospital course was prolonged as a result. Cymbalta added to his allergy list. Client was focused on his physical pain while inpatient as well. Discharged to a medical appointment with the intention of having him referred to a pain clinic so he can be appropriately managed. Client agreed that his mood is tied in with his pain and that if it could get it under better control he would no longer feel SI/HI. On the day of discharge he looked brighter and more hopeful. He denied SI/HI knowing he was getting the right kind of help. - Time Spent with Patient Total time spent providing and/or coordinating discharge services: Quality - Multiple Antipsychotics Patient discharged on 2 or more antipsychotic medications: No Procedures - Procedures Procedures: Medication Management, Crisis Stabilization, Supportive Therapy, Group Therapy Mental Status Exam - Mental Status Exam Patient orientation: Yes Person, Yes Time, Yes Place Level of alertness: Alert Patient appearance: Appropriate Behavior: calm, cooperative Psychomotor activity: Slowed Eye contact: Maintains Eye Contact Mood description: Euthymic/stable Affect description: congruent with mood, full range Speech pattern: Normal rate, Normal rhythm, Normal tone Speech Volume: Normal Thought process: Linear, Goal Oriented Thought Content: No Suicidal ideation, No Homicidal ideation, No Overt delusions Perceptual Disturbances: No Auditory hallucinations, No Visual hallucinations Judgment: Fair Insight: Partial
== END 2016-11-16 15:10 | disposition home or self-care (01) | DRG 751 ==
LOC: SUATTDRO 17:43 → 1ANU 17:43
PROVIDERS: ADMIT Psychiatry & Neurology Psychiatry; ATTEND Psychiatry & Neurology Psychiatry